=== PATIENT | female | born 1995 | race Caucasian/White ===

== ENCOUNTER 2021-02-18 00:59 | Emergency (ER) | payer BC, MEDICAID, SELFPAY ==
--- NOTE | ~2021-02-18 | CT_ITS ---
EXAMINATION: CT abdomen pelvis w con DATE: 02/18/2021 02:40 INDICATION: Left upper quadrant abdominal pain. Status post section. TECHNIQUE: Computed tomography (CT) of the abdomen and pelvis was performed with 100 cc Omnipaque 350 intravenous contrast. Automated exposure control and iterative reconstruction technique were employe d. Exam dose: 650.54 mGy-cm total exam DLP. COMPARISON: None. FINDINGS: Postsurgical changes secondary to recent section. uterus. No bowel obstruction or intraperitoneal free air is evident. Normal heart size. No pericardial or pleural effusion. The lung bases are clear. There is mild intrahepatic and extrahepatic bile duct dilatation and distention of the gallbladder. N o gallbladder wall thickening or pericholecystic fluid or fat stranding is noted. No obvious stones a re demonstrated in the gallbladder or common bile duct. Recommend correlation with serum bilirubin le brittanie. Consider gallbladder ultrasound examination. No pancreatic mass lesion, calcification or ductal dilatation. No space-occupying mass lesion of the liver, spleen, pancreas, adrenal glands or kidneys. No urinary tract calculus or hydroureteronephrosis. The urinary bladder is unremarkable. Normal caliber of the abdominal aorta. No intraperitoneal or retroperitoneal or pelvic mass lesion or adenopathy or ascites. Included skeletal structures are unremarkable. IMPRESSION: Gallbladder distention and mild prominence of the common bile duct and intrahepatic bile ducts. Status post recent section Reviewed, dictated and finalized at Location , in correlation with serum bilirubin. Consider gallblad delma ultrasound examination.. Reviewed, dictated and finalized at location A.
--- NOTE | 2021-02-18 01:07 | ECG_ITS ---
Measurements Intervals [place] Rate: 52 P: 26 [place]: 162 QRS: 14 QRSD: 94 T: 52 QT: 404 QTc: 377 Interpretive Statements SINUS BRADYCARDIA WITH SINUS ARRHYTHMIA BASELINE ARTIFACT- I, II, III, AVR, AVL, AVF, V2 NORMAL ECG Electronically Signed On 02-18-2021 6:26:12 CDT by Troy Otero D.O.
[2021-02-18 01:27] VITALS: BP 109/61; PULSE 47; RESP 18; TEMP 36.6; O2SAT 98
--- NOTE | 2021-02-18 01:27 | ED.ABDPAIN ---
HPI - Abdominal Pain General Chief Complaint: Abdominal Pain Stated Complaint: L side abd pain- 3 weeks Time Seen by Provider: 02/18/21 01:03 Source: patient History of Present Illness HPI narrative: Patient presents with left upper quadrant abdominal pain. Reports symptoms started tonight. She is status post . She had this kind of pain during her and was given pain medications but never figure out what occurred. Her pain is sharp, constant, associated with nausea and vomiting denies diarrhea, fevers, cough, congestion. Pain is sharp, constant, worse with deep inspiration, no radiation. She denies any urinary symptoms, she denies difficulty with bowel movements Review of Systems Review of Systems: CONSTITUTIONAL: Denies fever, chills, or sweats. EYES: Denies visual changes, redness, or discharge. ENT: Denies rhinorrhea, congestion, sore throat, or otalgia. CARDIOVASCULAR: Denies chest pain, palpitations, or edema. RESPIRATORY: Denies cough or dyspnea. GASTROINTESTINAL: Reports abdominal pain nausea and vomiting GENITOURINARY: Denies dysuria or hematuria. SKIN: Denies rash or itching. MUSCULOSKELETAL: Denies back pain, joint pain, or myalgia. NEUROLOGIC: Denies headache, numbness, dizziness, or weakness. PSYCHIATRIC: Denies anxiety or depression. All systems reviewed & are unremarkable except as noted in HPI and below PMFSH Surgical History Surgical History Previous section Social History Social History (Updated 02/18/21 @ 05:02 by Srinath Mckeon MD) Living arrangements: with family Exam Narrative: GENERAL: Well-appearing, well-nourished, and in mild distress due to pain HEAD: Normocephalic, atraumatic. EYES: PERRLA and EOMI. ENT: Nares clear, no rhinorrhea or epistaxis. Mucous membranes moist. NECK: Supple. No masses. No JVD ABDOMEN: Moderate tenderness most noted in the left upper quadrant soft, nondistended, normal active bowel sounds. EXTREMITIES: Normal range of motion. No edema. SKIN: Warm, dry, no rash. NEURO: No focal deficits. Alert and oriented x3. PSYCH: Normal mood and affect. Course Reevaluation(s) Reevaluation #1: Patient resting comfortably reports large improvement in symptoms labs and imaging reviewed with patient. Patient comfortable with outpatient plan. Discussed CT findings regarding her gallbladder she reports a history of symptomatic cholelithiasis but has not followed up with anyone she would like to continue to monitor her symptoms her repeat abdominal exam was much improved she had a negative Juárez's and no focal tenderness over the right quadrant Date: 02/18/21 Time: 05:00 Vital Signs Vital signs: Vital Signs Temperature 36.6 C 02/18/21 01:27 Pulse Rate 47 L 02/18/21 01:27 Respiratory Rate 18 02/18/21 01:27 Blood Pressure 109/61 02/18/21 01:27 Pulse Oximetry 98 02/18/21 01:27 Temperature 36.6 C 02/18/21 01:27 Pulse Rate 69 02/18/21 05:36 Respiratory Rate 18 02/18/21 05:36 Blood Pressure 106/63 02/18/21 05:36 Pulse Oximetry 99 02/18/21 05:36 MDM - Abdominal Pain MDM Narrative Medical decision making narrative: H&P as above, vss, pt looks clinically well, exam moderate abdominal pain, labs clinically unremarkable, patient refused to give a urine, img with mild dilation in the CBD otherwise CT of the abdomen was clinically unremarkable, additional labs/img considered, symptomatic relief available as needed, on reevaluation pt continues to looks clinically well. Symptoms remain of unclear etiology, dns pancreatitis, bowel obstruction, cholecystitis, appendicitis, perforation. plan to tx/monitor as op w/ pcm f/u findings/plan discussed with pt, pt agree/comfortable with plan, return precautions given Lab Data Result diagrams: 02/18/21 01:46 02/18/21 01:46 Labs: Lab Results 02/18/21 02/18/21 02/18/21 Range/Units 01:46 01:46
[2021-02-18 02:05] VITALS: BP 109/58; PULSE 66; RESP 18; O2SAT 99
[2021-02-18 02:05] LABS: Basophils Absolute Auto 0.1 K/mm3 (0.0-0.1); Basophils Percent Auto 0.6 % (0.2-1.2); Eosinophils Absolute Auto 0.3 K/mm3 (0-0.3); Eosinophils Percent Auto 2.9 % (0-4.4); Hematocrit 38.5 % (37.0-47.0); Hemoglobin 11.9 g/dL (12.0-15.0); Immature Granulocyte Absolute 0.03 K/mm3 (0.00-0.031); Immature Granulocyte Percent A 0.3 % (0-0.5); Lymphocytes Absolute Auto 3.71 K/mm3 (0.9-3.2); Lymphocytes Percent Auto 39.5 % (18.3-44.2); Mean Corpuscular HGB Conc 30.9 g/dl (32-36); Mean Corpuscular Hemoglobin 25.2 pg (26-34); Mean Corpuscular Volume 81.4 fl (80-100); Mean Platelet Volume 10.1 fl (7.4-10.4); Monocytes Absolute Auto 0.5 K/mm3 (0.1-0.6); Monocytes Percent Auto 5.5 % (2.6-8.5); Neutrophils Absolute Auto 4.8 K/mm3 (1.3-6.7); Neutrophils Percent Auto 51.2 % (45.5-73.1); Platelet Count Result 398 k/mm3 (150-375); Red Blood Count 4.73 M/mm3 (4.2-5.4); Red Cell Distribution Width 14.5 % (11.5-14.5); White Blood Count 9.4 K/mm3 (4.5-10.0)
[2021-02-18] MEDS: SODIUM CHLORIDE 0.9% IV 1,000 ML 999 ML IV CONT (02:06)
[2021-02-18] MEDS: MORPHINE SULFATE (*CRX) 4 MG/ML INJ IV PUSH (02:07)
[2021-02-18] MEDS: ONDANSETRON INJ 4 MG/2 ML VIAL IV PUSH (02:07)
[2021-02-18] MEDS: KETOROLAC 15 MG/ML VIAL (*BKC) IV PUSH (02:07)
[2021-02-18 02:09] LABS: Alanine Aminotransferase 22 U/L (4-35); Albumin Level 4.3 g/dL (3.5-5.1); Alkaline Phosphatase 105 U/L (38-126); Anion Gap 11 mmol/L (8-16); Aspartate Amino Transferase 23 U/L (14-36); Bilirubin,Total 0.3 mg/dL (0.2-1.3); Blood Urea Nitrogen 20 mg/dL (7-17); Calcium 9.7 mg/dL (8.4-10.2); Carbon Dioxide 26 mmol/L (22-30); Chloride 104 mmol/L (98-107); Estimated CRCL calculation 109 ml/min; Estimated Glomerular Filt Rate > 60; Glucose 108 mg/dL (65-110); Lipase 185 U/L (23-300); Potassium 4.2 mmol/L (3.4-5.0); Sodium 141 mmol/L (137-145)
[2021-02-18 02:10] LABS: Lactic Acid Reflex 0.9 mmol/L (0.7-2.1)
[2021-02-18 05:36] VITALS: BP 106/63; PULSE 69; RESP 18; O2SAT 99
== END 2021-02-18 05:46 | disposition home or self-care (01) ==
PROVIDERS: Emergency Provider Emergency Medicine
DX: R10.12 Left upper quadrant pain (principal); R11.2 Nausea with vomiting, unspecified; R00.1 Bradycardia, unspecified
CPT/HCPCS: 36415; 74177; 80053; 83605; 83690; 85025; 93005; 96361; 96374; 96375; 99284; J1885; J2270; J2405; J7030; Q9967

== ENCOUNTER 2021-03-13 04:49 | Observation (INO) | payer BC, MEDICAID, SELFPAY ==
[2021-03-13] VITALS (23 sets, daily range): BP systolic 88–141; BP diastolic 42–95; PULSE 40–101; RESP 14–20; TEMP 36.3–37.3; O2SAT 88–100; BMI 30.2
--- NOTE | ~2021-03-13 | US_ITS ---
EXAMINATION: US abdomen limited DATE: 03/13/2021 07:29 INDICATION: Abdominal pain TECHNIQUE: Multiple grayscale and Doppler ultrasound images of the abdomen were obtained. COMPARISON: CT, 02/18/2021 FINDINGS: Bowel gas obscures visualization of the pancreas. The visualized portions of the pancreas a re unremarkable. The liver is normal with normal echogenicity and echotexture. No surface nodularity. Normal hepatopetal flow in the main portal vein. Layering stones are present in the gallbladder whic h is mildly distended. No pericholecystic fluid or gallbladder wall thickening are identified. The no rmal common bile duct measures 6 mm. Sonographic Juárez sign is positive. IMPRESSION: 1. Cholelithiasis and gallbladder distention with positive sonographic Juárez sign. No gallbladder wa ll thickening or pericholecystic fluid. Findings are equivocal for cholecystitis. Consider correlatio n with nuclear hepatobiliary scan. Reviewed, dictated and finalized at location A. IMPRESSION: 1. Cholelithiasis and gallbladder distention with positive sonographic Juárez s ign. No gallbladder wall thickening or pericholecystic fluid. Findings are equi vocal for cholecystitis. Consider correlation with nuclear hepatobiliary scan.
--- NOTE | 2021-03-13 05:01 | ED.ABDPAIN ---
HPI - Abdominal Pain General Chief Complaint: Abdominal Pain <Nydia Mesa MD - Last Filed: 03/16/21 12:10> Stated Complaint: Left upper ABD pain <Nydia Mesa MD - Last Filed: 03/16/21 12:10> Time Seen by Provider: 03/13/21 04:53 <Nydia Mesa MD - Last Filed: 03/16/21 12:10> Source: patient, RN notes reviewed and old records reviewed <Nydia Mesa MD - Last Filed: 03/16/21 12:10> Mode of arrival: ambulatory <Nydia Mesa MD - Last Filed: 03/16/21 12:10> Limitations: no limitations <Nydia Mesa MD - Last Filed: 03/16/21 12:10> History of Present Illness HPI narrative: This is a 25 year old female who presents for evaluation of left side abdominal pain. She woke up with pain 2 hours ago, and she reports associated nausea and vomiting. She was evaluated for similar pain 3 weeks ago , and she reports she was diagnosed with gallstones. She reports her pain resolved after that visit and returned this morning. She has not taken anything for pain this morning. Her pain does not radiate and she denies fever, chills. <Nydia Mesa MD - Last Filed: 03/16/21 12:10> Related Data Home Medications: Home Medications Medication Instructions Recorded Confirmed ibuprofen 600 mg PO PRN 03/13/21 <Nydia Mesa MD - Last Filed: 03/16/21 12:10> Allergies/Adverse Reactions: Allergies Allergy/AdvReac Type Severity Reaction Status Date / Time baclofen AdvReac Chills Verified 03/13/21 12:48 meloxicam AdvReac Chills Verified 03/13/21 12:48 <Nydia Mesa MD - Last Filed: 03/16/21 12:10> Review of Systems Review of Systems: All systems reviewed & are unremarkable except as noted in HPI and below <Nydia Mesa MD - Last Filed: 03/16/21 12:10> Constitutional: Constitutional: Denies chills and Denies fever(s) <Nydia Mesa MD - Last Filed: 03/16/21 12:10> Respiratory: Respiratory: Denies dyspnea <Nydia Mesa MD - Last Filed: 03/16/21 12:10> Gastrointestinal: Gastrointestinal: Reports abdominal pain, Denies diarrhea, Reports nausea and Reports vomiting <Nydia Mesa MD - Last Filed: 03/16/21 12:10> Genitourinary: Genitourinary: Denies nocturia and Denies dysuria <Nydia Mesa MD - Last Filed: 03/16/21 12:10> Musculoskeletal: Musculoskeletal: Denies back pain <Nydia Mesa MD - Last Filed: 03/16/21 12:10> [facility] Past Medical History Medical History: Medical History (Updated 03/13/21 @ 12:37 by Cheikh Alegre MD) Obesity <Nydia Mesa MD - Last Filed: 03/16/21 12:10> Surgical History Surgical History: Surgical History Previous section <Nydia Mesa MD - Last Filed: 03/16/21 12:10> Family History Family History: Family History (Updated 03/13/21 @ 13:01 by Camron Dong DO) Mother Diabetes mellitus <Nydia Mesa MD - Last Filed: 03/16/21 12:10> Social History Social History: Social History (Updated 03/13/21 @ 13:01 by Camron Dong DO) Smoking status: Never smoker Second hand tobacco smoke exposure: No Alcohol intake: never Substance use: never Spiritual care concerns: No <Nydia Mesa MD - Last Filed: 03/16/21 12:10> Exam Const: General: alert; No diaphoretic <Nydia Mesa MD - Last Filed: 03/16/21 12:10> Orientation/consciousness: patient oriented x3 <Nydia Mesa MD - Last Filed: 03/16/21 12:10> Other: patient is screaming in pain <Nydia Mesa MD - Last Filed: 03/16/21 12:10> Eyes: EOM: EOMs intact bilaterally <Nydia Mesa MD - Last Filed: 03/16/21 12:10> Chest: Chest palpation & inspection: normal inspection of the chest and abnormal inspection of the chest <Nydia Mesa MD - Last Filed: 03/16/21 12:10> Resp: Effort & Inspection: normal respiratory effort and no retractions <Nydia Cabral
[2021-03-13 05:17] LABS: Basophils Absolute Auto 0.1 K/mm3 (0.0-0.1); Basophils Percent Auto 0.9 % (0.2-1.2); Eosinophils Absolute Auto 0.1 K/mm3 (0-0.3); Eosinophils Percent Auto 1.8 % (0-4.4); Hematocrit 38.8 % (37.0-47.0); Hemoglobin 11.9 g/dL (12.0-15.0); Immature Granulocyte Absolute 0.01 K/mm3 (0.00-0.031); Immature Granulocyte Percent A 0.1 % (0-0.5); Lymphocytes Absolute Auto 3.41 K/mm3 (0.9-3.2); Mean Corpuscular HGB Conc 30.7 g/dl (32-36); Mean Corpuscular Hemoglobin 24.8 pg (26-34); Mean Corpuscular Volume 80.8 fl (80-100); Mean Platelet Volume 9.3 fl (7.4-10.4); Monocytes Absolute Auto 0.5 K/mm3 (0.1-0.6); Neutrophils Absolute Auto 3.6 K/mm3 (1.3-6.7); Neutrophils Percent Auto 46.2 % (45.5-73.1); Platelet Count Result 344 k/mm3 (150-375); Red Cell Distribution Width 14.6 % (11.5-14.5); White Blood Count 7.8 K/mm3 (4.5-10.0)
[2021-03-13] MEDS: ONDANSETRON INJ 4 MG/2 ML VIAL IV PUSH ×4 (05:18→16:36)
[2021-03-13] MEDS: MORPHINE SULFATE (*CRX) 4 MG/ML INJ IV PUSH ×3 (05:18→16:34)
[2021-03-13] MEDS: LACTATED RINGERS 1,000 ML 999 ML IV CONT (05:21)
[2021-03-13 05:33] LABS: Alanine Aminotransferase 28 U/L (4-35); Albumin Level 4.2 g/dL (3.5-5.1); Alkaline Phosphatase 96 U/L (38-126); Anion Gap 9 mmol/L (8-16); Aspartate Amino Transferase 35 U/L (14-36); Bilirubin,Total 0.3 mg/dL (0.2-1.3); Blood Urea Nitrogen 16 mg/dL (7-17); Calcium 9.6 mg/dL (8.4-10.2); Carbon Dioxide 25 mmol/L (22-30); Chloride 106 mmol/L (98-107); Estimated CRCL calculation 105 ml/min; Estimated Glomerular Filt Rate > 60; Glucose 140 mg/dL (65-110); Lipase 182 U/L (23-300); Potassium 3.8 mmol/L (3.4-5.0); Sodium 140 mmol/L (137-145)
[2021-03-13 06:19] LABS: Add Urine Microscopic? YES; Appearance Urine Cloudy (Clear); Bilirubin Urine Negative (Negative); Blood Urine Negative (Negative); Color Urine Yellow (Yellow); Glucose Urine UA Negative (Negative); Ketones Urine Negative (Negative); Leukocyte Esterase Ur Negative LEU/UL (Negative); Mucus Urine Few /lpf; Nitrate Urine Negative (Negative); Protein Urine 1+ mg/dL (Negative); Specific Grav Ur 1.024 (1.001-1.035); Squamous Epithelial Cell Urine Occasional /hpf (Few); Urobilinogen Urine Negative mg/dL (<2.0); WBC Urine 0-3 /hpf
[2021-03-13] MEDS: HYDROmorphone HCL INJ (*CRX) 1 MG/ML SYR IV PUSH ×3 (06:35→10:17)
[2021-03-13] MEDS: SODIUM CHLORIDE 0.9% IV 1,000 ML 125 ML IV CONT (10:16)
--- NOTE | 2021-03-13 12:18 | PM.IMHP ---
H&P: HPI History of Present Illness Date/Time: 03/13/21 12:18 Chief Complaint: Right upper quadrant pain Narrative: This is a 25-year-old presented to emergency department this morning upper abdominal pain. She states that her pain started around 3:00 a.m. this morning. She had eaten biscuits and gravy last night. She had episode like this about 3 weeks ago but pain resolved and she was able to go home. She also had an episode like this about 4 years ago while with her 1st son and this also went away with time. She has been having constant pain since that started this morning and pain was unable to be controlled in the ED. she has been having nausea and vomiting, but denies any fevers, change of bowel habits, or urinary difficulty. Review of Systems Review of Systems: All systems reviewed & are unremarkable except as noted in HPI and below Constitutional: Constitutional: Denies chills and Denies fever(s) Eyes: Eyes: Denies change in vision ENT: Denies hearing loss, Denies neck pain and Denies sore throat Cardiovascular: Cardiovascular: Denies chest pain and Denies dyspnea Respiratory: Respiratory: Denies cough, Denies dyspnea and Denies wheezing Gastrointestinal: Gastrointestinal: Reports as per HPI Genitourinary: Genitourinary: Denies hematuria and Denies dysuria Musculoskeletal: Musculoskeletal: Denies arthralgias, Denies joint swelling and Denies neck pain Allergic/Immunologic: Allergic/Immunologic: Denies wheezing [facility] Past Medical History Medical History (Updated 03/13/21 @ 12:37 by Cheikh Alegre MD) Obesity Surgical History Surgical History Previous section Family History Family History (Updated 03/13/21 @ 13:01 by Camron Dong DO) Mother Diabetes mellitus Social History Social History (Updated 03/13/21 @ 13:01 by Camron Dong DO) Smoking status: Never smoker Alcohol intake: never Meds Home Medications and Allergies Home Medications Medication Instructions Recorded Confirmed Type ibuprofen 600 mg PO PRN 03/13/21 History Allergies Allergy/AdvReac Type Severity Reaction Status Date / Time baclofen AdvReac Chills Verified 03/13/21 12:48 meloxicam AdvReac Chills Verified 03/13/21 12:48 Vital Signs Vital Signs - 24 hr 03/13/21 05:02 03/13/21 06:01 03/13/21 06:15 Temperature 36.7 C Pulse Rate 77 Respiratory Rate 16 Blood Pressure 106/76 Pulse Oximetry 100 100 100 03/13/21 06:30 03/13/21 06:45 03/13/21 06:51 Temperature Pulse Rate Respiratory Rate Blood Pressure 111/75 Pulse Oximetry 100 88 L 96 03/13/21 07:00 03/13/21 07:01 03/13/21 09:07 Temperature Pulse Rate 45 L Respiratory Rate 16 Blood Pressure 109/75 141/75 H Pulse Oximetry 97 99 96 03/13/21 10:06 03/13/21 11:46 Temperature 37.0 C Pulse Rate 40 L 50 L Respiratory Rate 14 14 Blood Pressure 135/95 H 129/84 Pulse Oximetry 94 100 Exam Const: General: alert; No acute distress Orientation/consciousness: patient oriented x3 Limitations: no limitations HENMT: Head: normocephalic and atraumatic Ears: hearing grossly normal bilaterally General nose exam: Normal external nose present and Normal nares present Mouth: Yes Normal oral and palatal mucosa present and Yes moist mucous membranes Eyes: General: appearance normal, both eyes and all related structures Conjunctivae: conjunctivae normal Sclera: sclerae normal Pupils: Equal, round and reactive pupils present EOM: EOMs intact bilaterally Neck: Neck: normal visual inspection, full ROM, no lymphadenopathy, supple and no JVD Lymphatic: no lymphadenopathy noted Chest: Chest palpation & inspection: normal inspection of the chest Resp: Effort & Inspection: normal respiratory effort and able to speak in complete sentences Auscultation: clear to auscultation bilaterally Percussion: percussion normal Cardio: Jugular
--- NOTE | 2021-03-13 12:23 | WPDHPUPDATE1 ---
History and Physical Update Update Date/Time: 03/13/21 12:23 History and Physical has been reviewed, including an updated exam of the patient. There are NO changes in the patient's condition. Risks, benefits, and alternatives have been discussed and questions answered. Patient agrees to proceed with procedure.
[2021-03-13] MEDS: LACTATED RINGERS 1,000 ML 30 ML IV CONT ×2 (12:30→14:19)
--- NOTE | 2021-03-13 12:37 | WPDANESEPPF ---
Anes - Initial Pre Proc Eval Procedure: Operation Date: 03/13/21 13:30 Proposed Procedures p Laparoscopic Cholecystectomy Possible Open - Camron Dong DO Date/Time: 03/13/21 12:37 Surgeon: Camron Dong DO Pre Op Diagnosis: symptomatic cholethithiasis Patient Data Age: 25 Gender: F Height: 1.68 m Weight: 85.1 kg Last Vital Signs Temp 37.0 C 03/13/21 11:46 Pulse 50 L 03/13/21 11:46 Resp 14 03/13/21 11:46 BP 129/84 03/13/21 11:46 Pulse Ox 100 03/13/21 11:46 Allergies Allergy/AdvReac Type Severity Reaction Status Date / Time baclofen AdvReac Chills Verified 03/13/21 05:06 meloxicam AdvReac Chills Verified 03/13/21 05:06 Laboratory Tests 03/13/21 03/13/21 03/13/21 05:08 05:08 06:00 WBC 7.8 K/mm3 K/mm3 (4.5-10.0) RBC 4.80 M/mm3 M/mm3 (4.2-5.4) Hgb 11.9 g/dL L g/dL (12.0-15.0) Hct 38.8 % % (37.0-47.0) MCV 80.8 fl fl (80-100) MCH 24.8 pg L pg (26-34) MCHC 30.7 g/dl L g/dl (32-36) RDW 14.6 % H % (11.5-14.5) Plt Count 344 k/mm3 k/mm3 (150-375) MPV 9.3 fl fl (7.4-10.4) Immature Gran % (Auto) 0.1 % % (0-0.5) Neut % (Auto) 46.2 % % (45.5-73.1) Lymph % (Auto) 44.0 % % (18.3-44.2) [place] % (Auto) 7.0 % % (2.6-8.5) Eos % (Auto) 1.8 % % (0-4.4) Baso % (Auto) 0.9 % % (0.2-1.2) Lymph # (Auto) 3.41 K/mm3 H K/mm3 (0.9-3.2) [place] # (Auto) 0.5 K/mm3 K/mm3 (0.1-0.6) Eos # (Auto) 0.1 K/mm3 K/mm3 (0-0.3) Baso # (Auto) 0.1 K/mm3 K/mm3 (0.0-0.1) Abs Immat Gran (auto) 0.01 K/mm3 K/mm3 (0.00-0.031) Absolute Neuts (auto) 3.6 K/mm3 K/mm3 (1.3-6.7) Absolute Nucleated RBC 0.0 K/mm3 K/mm3 (0.0-0.012) Nucleated RBC % 0.0 % % (0.0-0.2) Sodium 140 mmol/L mmol/L (137-145) Potassium 3.8 mmol/L mmol/L (3.4-5.0) Chloride 106 mmol/L mmol/L (98-107) Carbon Dioxide 25 mmol/L mmol/L (22-30) Anion Gap 9 mmol/L mmol/L (8-16) BUN 16 mg/dL mg/dL (7-17) Creatinine 0.80 mg/dL mg/dL (0.7-1.0) Estim Creat Clear Calc 105 ml/min ml/min Estimated GFR > 60 (59 - ) Glucose 140 mg/dL H mg/dL (65-110) Calcium 9.6 mg/dL mg/dL (8.4-10.2) Total Bilirubin 0.3 mg/dL mg/dL (0.2-1.3) AST 35 U/L U/L (14-36) ALT 28 U/L U/L (4-35) Alkaline Phosphatase 96 U/L U/L (38-126) Total Protein 7.0 g/dL g/dL (6.3-8.2) Albumin 4.2 g/dL g/dL (3.5-5.1) Lipase 182 U/L U/L (23-300) Urine Color Yellow (Yellow) Urine Appearance Cloudy H (Clear) Urine pH 6.0 (5.0-9.0) Ur Specific [place] 1.024 (1.001-1.035) Urine Protein 1+ mg/dL H mg/dL (Negative) Urine Glucose (UA) Negative mg/dL mg/dL (Negative) Urine Ketones Negative mg/dL mg/dL (Negative) Ur Blood (Man) Negative (Negative) Urine Nitrate Negative (Negative) Urine Bilirubin Negative (Negative) Urine Urobilinogen Negative mg/dL mg/dL (<2.0) Leukocyte Esterase Rfl Negative KELLY/UL KELLY/UL (Negative) Urine RBC 3-5 /hpf H /hpf (0-2) Urine WBC 0-3 /hpf /hpf Ur Squamous Epith Cells Occasional /hpf /hpf (Few) Urine Mucus Few /lpf H /lpf Patient hx anesthesia problems: none Family hx anesthesia problems: none Results Review: All pre-operative results and documents have been reviewed as part of the pre-operative evaluation. COUNTS INCLUDE 234 BEDS AT THE [facility] Past Medical History Medical History (Updated 03/13/21 @ 12:37 by Cheikh Alegre MD) Obesity Surgical History Surgical History Previous cesa
[2021-03-13] MEDS: ceFAZolin 2 GM/D5W 50 ML 2 GM/50 ML BAG IVPB (13:25)
--- NOTE | 2021-03-13 14:26 | W.PM.PROC2 ---
Procedure Note - Detailed Date of Procedure 03/13/21 Pre-op Diagnosis Acute calculous cholecystitis Post-op Diagnosis same Procedure Performed Laparoscopic cholecystectomy Surgeon Camron Dong, DO Anesthesia general and local (0.5% bupivacaine) Indications This is a 25-year-old woman who presented to the emergency department this morning with acute onset of upper abdominal pain that started around 3:00 a.m. this morning. She had eaten biscuits and gravy for dinner last night. She has had a couple prior episodes like this in the past. She was having nausea and vomiting but denied any fevers or chills. Workup in the emergency department showed normal white blood count and normal liver enzymes, but ultrasound showed evidence of a distended gallbladder with gallstones and positive sonographic Juárez sign. She was continuing to have constant pain in the emergency department despite multiple doses of pain meds. Discussions were made with the patient about treatment options and decision was made to admit patient and proceed with urgent laparoscopic cholecystectomy, possible open. Findings Laparoscopic cholecystectomy was performed. The gallbladder appeared tense and dilated and had some mild gallbladder wall thickening. The gallbladder had to be aspirated with a laparoscopic aspirating needle to allow it to be decompressed enough to grasp and manipulate. The cystic duct appeared normal in size. No other intra-abdominal abnormalities were noted. The gallbladder was removed and sent to the lab for pathology. Description of Procedure Procedure as well as risks, benefits, and alternatives were discussed with patient. Written consent was obtained and placed in chart prior to procedure. The patient was brought back to surgical suite. Patient was placed in supine position on operating table. Time-out was done to confirm patient and procedure. Patient was then intubated by the anesthesia department. Abdomen was prepped and draped in sterile fashion using chlorhexidine prep. 0.5% bupivacaine with epinephrine was infiltrated at each site of incision. An 11 millimeter vertical incision was made at the inferior portion of the umbilicus using a 15 blade scalpel. Blunt dissection was carried down to the linea alba. The linea alba was then incised using a 15 blade scalpel. The peritoneum was then bluntly entered. An 11 millimeter trocar was inserted and carbon dioxide insufflation was used to create a pneumoperitoneum. The camera was inserted and the abdomen was inspected. The patient was placed in reverse Trendelenberg position and rotated slightly to the left. A 5 millimeter incision was made in the epigastric region, and a 5 millimeter trocar was inserted under direct visualization. Two 5 millimeter incisions were made in the right upper quadrant, and two 5 millimeter trocars were inserted under direct visualization. The gallbladder was identified and grasped at the fundus and retracted superiorly. It was then grasped at the infundibulum retracted laterally. Careful dissection around the neck of the gallbladder was performed using blunt dissection with a [place] grasper and hook electrocautery. The cystic duct was identified, and a window was created behind it. The cystic artery was also identified and a window was created behind it. The critical view of safety was identified, visualizing the cystic duct running directly into the neck of the gallbladder, and the cystic artery running directly into the wall of the gallbladder. A 5 millimeter clip prn physical therapist was then used to place 2 clips proximally and 1 clip distally on both the cystic duct and cystic artery. They were then both transected using endoscopic scissors. Once safely away from the kinjal hepatitis, the gallbladder was dissected free from the liver bed using hook electrocautery. Hemostasis was achieved along the way. The gallbladder was removed completely and then removed through the umbilical port.
[2021-03-13] MEDS: fentaNYL CITRATE INJ (*CRX) 100 MCG/2 ML VIAL 25 MCG IV PUSH (14:55)
[2021-03-13] MEDS: LACTATED RINGERS 1,000 ML 100 ML IV CONT (15:33)
--- NOTE | 2021-03-13 15:38 | PC.NURSE ---
This patient, Cody Flaherty, was admitted to [facility] Surg Room 314-01 at 1539 following lap cholecystomy this afternoon. Patient/family oriented to hospital policies and general routines including ID bracelet, bed and alarms, visiting hours, pain management, procedures, bathroom and other care routines, personal items, smoking policy, room service/diet, and visiting hours. Information on how to activate the Rapid Response Team has been discussed. Patient/Family are encouraged to report perceived risks to care and to ask questions if they do not understand what they are told or what they should do.
--- NOTE | 2021-03-13 16:56 | PC.NURSE ---
MD Dong informed pt anxiety about pain and requesting to stay the night at hospital. Md Dong, aboved over night stay.
[2021-03-14] VITALS: BP 100/45; PULSE 42; RESP 16; TEMP 36.7; O2SAT 97
[2021-03-14 04:00] VITALS: BP 88/45; PULSE 45; RESP 16; TEMP 36.9; O2SAT 97
[2021-03-14 06:37] LABS: Hematocrit 36.4 % (37.0-47.0); Hemoglobin 11.3 g/dL (12.0-15.0); Mean Corpuscular Hemoglobin 25.2 pg (26-34); Mean Corpuscular Volume 81.1 fl (80-100); Mean Platelet Volume 9.5 fl (7.4-10.4); Platelet Count Result 331 k/mm3 (150-375); Red Blood Count 4.49 M/mm3 (4.2-5.4); Red Cell Distribution Width 14.8 % (11.5-14.5); White Blood Count 10.9 K/mm3 (4.5-10.0)
[2021-03-14 07:09] LABS: Alanine Aminotransferase 75 U/L (4-35); Albumin Level 3.2 g/dL (3.5-5.1); Alkaline Phosphatase 86 U/L (38-126); Aspartate Amino Transferase 43 U/L (14-36); Bilirubin,Total 0.4 mg/dL (0.2-1.3); Lipase 104 U/L (23-300)
[2021-03-14 07:54] VITALS: BP 100/52; PULSE 55; RESP 16; TEMP 36.7; O2SAT 99
--- NOTE | 2021-03-14 11:51 | PM.DS ---
DS: Admitting Diagnosis Discharge Date 03/14/2021 Admitting Diagnosis Acute calculous cholecystitis DS: Discharge Diagnosis Discharge Diagnosis (1) Acute calculous cholecystitis: Code(s): K80.00 - Calculus of gallbladder with acute cholecystitis without obstruction Status: Acute DS: Summary Hospital Course Reason for hospitalization: Acute calculous cholecystitis Hospital Course: This is a 25-year-old woman who presented to the emergency department 03/13/2021 with upper abdominal pain, nausea, and vomiting. This is her 2nd visit to the emergency department in the last 3 weeks. She had a similar episode 3 weeks ago but symptoms improved and she was able to be discharged home. This time her pain was constant and was not relieved with pain meds in the emergency department. Her gallbladder ultrasound showed evidence of cholelithiasis with a distended gallbladder and positive sonographic Juárez sign. Decision was made to admit the patient for further treatment. She underwent laparoscopic cholecystectomy on 03/13/2021. Surgery was uncomplicated and she was returned to the surgical floor postoperatively. Her diet and activity were gradually advanced as tolerated. She was having persistent postoperative pain in the evening on 03/13/2021, therefore she was kept in the hospital overnight. The following morning her pain was much better controlled and she was tolerating a low-fat diet. She was up ambulating without much difficulty. She was then discharged on 03/14/2021. Status at Discharge Functional status at discharge: independent ambulation Overall status at discharge: patient is progressing back to baseline Time Spent with Patient Time attestation: Total time spent providing and/or coordinating discharge services: Time spent: Less than 30 minutes Exam Const: General: comfortable and no acute distress Orientation/consciousness: patient oriented x3 Resp: Effort & Inspection: normal respiratory effort Auscultation: clear to auscultation bilaterally Cardio: Rate: regular rate Rhythm: regular rhythm Heart sounds: S1 normal heart sound present and S2 normal heart sound present GI: Inspection: non-distended and incision (Intact with glue) GI Palp: Yes Soft to palpation, Yes Tenderness to palpation present (GI) (Incisional), No Guarding due to palpation present (GI) and No Rebound tenderness present Auscultation: normal bowel sounds DS: Data Data Completed and Pending Pending studies at discharge: Pending at discharge 03/13/21 13:52 Surgical [PTH] Routine Labs on day of discharge: Labs from last 24 hours 03/14/21 03/14/21 06:24 06:24 WBC 10.9 H RBC 4.49 Hgb 11.3 L Hct 36.4 L MCV 81.1 MCH 25.2 L MCHC 31.0 L RDW 14.8 H Plt Count 331 MPV 9.5 Total Bilirubin 0.4 Direct Bilirubin 0.0 AST 43 H ALT 75 H Alkaline Phosphatase 86 Total Protein 6.0 L Albumin 3.2 L Lipase 104 Discharge Plan Discharge Attending physician on discharge: Camron Regalado Discharging Clinician: Camron Regalado Patient Disposition: Home, Self-Care Activity: other - see discharge instructions Diet: low fat Wound Care Instructions: follow printed instructions Discharge Instructions: DISCHARGE INSTRUCTION SHEET FOR HERNIA, GALLBLADDER AND APPENDIX SURGERIES DR. REGALADO PATIENT TO TAKE HOME 1. May shower, no soaking in bath x 2weeks. 2. Call office for: Wound increasingly painful or bleeding Vomiting Fever of greater than 101 degrees 3. If no bowel movement for three days, take 1 oz. (30 ml) Milk of Magnesia or MiraLax 17g 1 to 2 times daily. 4. No heavy lifting > 10-15 pounds x weeks for hernia repairs and 2 weeks for laparoscopic cholecystectomy or appendectomy. 5. No driving for 3 days or while taking narcotic pain medications. 6. Ice to surgical site for 48 hours (30 min on, then 30 min off).
[2021-03-14] MEDS: ACETAMINOPHEN 325 MG TABLET 650 MG PO (12:41)
== END 2021-03-14 13:20 | disposition home or self-care (01) ==
LOC: ANHED 10:38 → ANH3MEDSUR 11:14
PROVIDERS: General Practice; Admitting Provider Surgery; Emergency Provider Emergency Medicine; PCP Family Medicine; Visit Provider Surgery
PROC: 0FT44ZZ Resection of Gallbladder, Percutaneous Endoscopic Approach (ICD-10-PCS; CPT 47562; principal; 2021-03-13 13:30)
DX: K80.10 Calculus of gallbladder with chronic cholecystitis without obstruction (principal)
CPT/HCPCS: 47562; 36415; 76705; 80053; 80076; 81001; 81025; 83690; 85025; 85027; 88304; 96361; 96374; 96375; 96376; 99285; A9270; G0378; J0131; J0330; J0690; J1100; J1170; J2270; J2405; J2704; J2710; J3010; J7030; J7120

== ENCOUNTER 2021-09-29 16:57 | Inpatient (IN) | payer BC, MEDICAID, SELFPAY ==
--- NOTE | ~2021-09-29 | CT_ITS ---
EXAMINATION: CT abdomen pelvis wo con DATE: 10/01/2021 11:58 INDICATION: Fever and flank pain TECHNIQUE: Computed tomography (CT) of the abdomen and pelvis was performed without intravenous contr ast. The dose-length product (DLP) was 759.88 mGy-cm. Automated exposure control and iterative recons truction technique were employed. COMPARISON: 09/29/2021 FINDINGS: Minimal dependent atelectasis is present in the lung bases. The heart size is normal. Withi n the limitations of noncontrast examination, the liver, spleen, pancreas, and adrenal glands are nor mal. The gallbladder is surgically absent. There is slight increase in right perinephric and right re troperitoneal fat stranding. There is also right periureteral stranding proximally. The left kidney i s unremarkable. No pathologically enlarged abdominal or pelvic lymph nodes are identified. There is n o free intraperitoneal gas or evidence of bowel obstruction. An IUD is in expected position. There is a small umbilical hernia containing fat. IMPRESSION: 1. Findings consistent with right pyelonephritis with slight worsening. Reviewed, dictated and finalized at location A.
--- NOTE | ~2021-09-29 | XR_ITS ---
EXAMINATION: XR chest 1V portable Exam Date/Time: 09/29/2021 21:25 CDT CLINICAL HISTORY: Fever, headache, rt sided flank pain, n/v, cough x few days Comparison: None available. RESULT: Lines, tubes, and devices: None. Lungs and pleura: Clear. Cardiomediastinal silhouette: Normal cardiomediastinal silhouette. Other: No acute osseous or upper abdominal finding. IMPRESSION: No acute cardiopulmonary process Reviewed, dictated and finalized at location K.
--- NOTE | ~2021-09-29 | CT_ITS ---
EXAMINATION: CT abdomen pelvis w con DATE: 09/29/2021 20:58 INDICATION: Right abdominal pain TECHNIQUE: Computed tomography (CT) of the abdomen and pelvis was performed with 100 mL Omnipaque-300 intravenous contrast. Automated exposure control and iterative reconstruction technique were employe d. The dose-length product was 652.39 mGy-cm. COMPARISON: 02/18/2021. FINDINGS: Lower thorax: Unremarkable Liver: Normal. Biliary/Gallbladder: Gallbladder is absent. No bile duct dilation. Pancreas: No mass or duct dilation. Spleen: Normal. Adrenals:No mass. Kidneys: Patchy bilateral parenchymal enhancement, more evident on the right. No mass or hydronephros is. Subtle medullary hyperdensity may reflect nephrocalcinosis or altered parenchymal enhancement. GI tract: No small or large bowel dilation. Normal appendix. Mesentery/Peritoneum: No ascites, mass, or free air. Retroperitoneum: No mass. Pelvis: Mild bladder wall thickening, given the degree of distention. IUD, in good position. Small vo lume free pelvic fluid within physiologic range. Soft Tissues: Soft tissues and body wall unremarkable. Bones: No acute osseous finding. IMPRESSION: CT findings concerning for cystitis, with bilateral ascending infection, more severe on the right. Reviewed, dictated and finalized at location K. IMPRESSION: CT findings concerning for cystitis, with bilateral ascending infection, more s evere on the right.
[2021-09-29 17:33] VITALS: BP 113/66; PULSE 110; RESP 20; TEMP 38.3; O2SAT 100
[2021-09-29 17:45] LABS: Basophils Absolute Auto 0.1 K/mm3 (0.0-0.1); Basophils Percent Auto 0.6 % (0.2-1.2); Eosinophils Percent Auto 0.1 % (0-4.4); Hematocrit 38.3 % (37.0-47.0); Immature Granulocyte Absolute 0.02 K/mm3 (0.00-0.031); Immature Granulocyte Percent A 0.2 % (0-0.5); Lymphocytes Absolute Auto 0.95 K/mm3 (0.9-3.2); Lymphocytes Percent Auto 11.5 % (18.3-44.2); Mean Corpuscular HGB Conc 31.3 g/dl (32-36); Mean Corpuscular Hemoglobin 24.9 pg (26-34); Mean Corpuscular Volume 79.5 fl (80-100); Mean Platelet Volume 9.4 fl (7.4-10.4); Monocytes Absolute Auto 0.7 K/mm3 (0.1-0.6); Monocytes Percent Auto 8.1 % (2.6-8.5); Neutrophils Absolute Auto 6.5 K/mm3 (1.3-6.7); Neutrophils Percent Auto 79.5 % (45.5-73.1); Platelet Count Result 283 k/mm3 (150-375); Red Blood Count 4.82 M/mm3 (4.2-5.4); Red Cell Distribution Width 14.5 % (11.5-14.5); White Blood Count 8.2 K/mm3 (4.5-10.0)
--- NOTE | 2021-09-29 17:52 | ED.ABDPAIN ---
HPI - Abdominal Pain General Chief Complaint: Abdominal Pain Stated Complaint: light headed, right side pain Time Seen by Provider: 09/29/21 17:47 Source: patient Mode of arrival: ambulatory Limitations: no limitations History of Present Illness HPI narrative: Patient is 26 years old white female presented to the ED with fever, chills, hot and cold feeling, body aches mainly on the right flank area, nausea and vomiting, cough. Started few days ago. Got worse today. Patient denies sick contact. Related Data Home Medications Medication Instructions Recorded Confirmed ibuprofen 600 mg PO PRN 03/13/21 03/30/21 Allergies Allergy/AdvReac Type Severity Reaction Status Date / Time baclofen AdvReac Chills Verified 03/27/21 10:51 meloxicam AdvReac Chills Verified 03/27/21 10:51 Review of Systems Review of Systems: All systems reviewed & are unremarkable except as noted in HPI and below PMFSH Past Medical History Medical History Obesity Surgical History Surgical History History of cholecystectomy 03/13/21 Previous section Family History Family History Mother Diabetes mellitus Social History Social History Smoking status: Never smoker Second hand tobacco smoke exposure: No Alcohol intake: never Substance use: never Spiritual care concerns: No Exam Narrative: General appearance: Well-developed, well-nourished Skin: Normal color Head: Normocephalic, nontraumatic Eyes: Clear conjunctiva ENT: Oropharynx normal, ears normal, nose normal Neck: Supple, nontender Chest and respiratory: Airway patent, no respiratory distress, no accessory muscle use Heart: Regular rate/rhythm Abdomen: Soft, mild tenderness right abdomen and right flank area Vascular: Normal peripheral pulses, normal capillary refill. Musculoskeletal: Normal range of motion, nontender back Neurologic: Alert and oriented ?3, CLINICAL OPERATIONS CONSULTANT is normal as tested, no gross motor deficit Course Reevaluation(s) Reevaluation #1: After lengthy explanation about the possible complication of leaving AMA which include sepsis, kidney failure, and . Patient still insist to go home because she have 2 children at home to take care of. And does not have anybody else to the care gets. The ED chief nurse, Harmony, went to talk to her also without any change.. Patient received 1 L of fluid IV, Tylenol orally, 1 g Rocephin IV prior to discharge on Cipro. Date: 09/29/21 Time: 21:59 Vital Signs Vital signs: Vital Signs Temperature 38.3 C H 09/29/21 17:33 Pulse Rate 110 H 09/29/21 17:33 Respiratory Rate 20 09/29/21 17:33 Blood Pressure 113/66 09/29/21 17:33 Pulse Oximetry 100 09/29/21 17:33 Temperature 38.3 C H 09/29/21 17:33 Pulse Rate 110 H 09/29/21 17:33 Respiratory Rate 20 09/29/21 17:33 Blood Pressure 113/66 09/29/21 17:33 Pulse Oximetry 100 09/29/21 17:33 MDM - Abdominal Pain Lab Data Result diagrams: 09/29/21 17:36 09/29/21 17:36 Labs: Lab Results 09/29/21 09/29/21 09/29/21 Range/Units 17:36 17:36 18:08 WBC 8.2 (4.5-10.0) K/mm3 RBC 4.82 (4.2-5.4) M/mm3 Hgb 12.0 (12.0-15.0) g/dL Hct 38.3 (37.0-47.0) % MCV 79.5 L (80-100) fl MCH 24.9 L (26-34) pg MCHC 31.3 L (32-36) g/dl RDW 14.5 (11.5-14.5) % Plt Count 283 (150-375) k/mm3 MPV 9.4 (7.4-10.4) fl Immature Gran % (Auto) 0.2 (0-0.5) % Neut % (Auto) 79.5 H (45.5-73.1) % Lymph
[2021-09-29 17:54] LABS: Alanine Aminotransferase 15 U/L (6-35); Albumin Level 3.9 g/dL (3.5-5.1); Alkaline Phosphatase 72 U/L (38-126); Anion Gap 10 mmol/L (8-16); Aspartate Amino Transferase 21 U/L (14-36); Bilirubin,Total 0.2 mg/dL (0.2-1.3); Blood Urea Nitrogen 7 mg/dL (7-17); Carbon Dioxide 22 mmol/L (22-30); Chloride 102 mmol/L (98-107); Estimated CRCL calculation 96 ml/min; Estimated Glomerular Filt Rate > 60; Glucose 137 mg/dL (65-110); Lipase 63 U/L (23-300); Potassium 3.6 mmol/L (3.4-5.0); Sodium 134 mmol/L (137-145)
[2021-09-29 18:25] LABS: Appearance Urine Clear (Clear); Bilirubin Urine Negative (Negative); Blood Urine 3+ (Negative); Color Urine Yellow (Yellow); Glucose Urine UA Negative (Negative); Ketones Urine Negative (Negative); Leukocyte Esterase Ur 1+ LEU/UL (Negative); Nitrate Urine Positive (Negative); Protein Urine Negative (Negative); Urobilinogen Urine 0.2 mg/dL (<2.0); pH Urine 5.5 (5.0-9.0)
[2021-09-29 18:42] LABS: Mucus Urine Rare /lpf; RBC Urine >75 /hpf (0-2); Squamous Epithelial Cell Urine Occasional /hpf (Few); WBC Urine 21-30 /hpf
[2021-09-29 18:47] LABS: Add Urine Microscopic? YES
[2021-09-29] MEDS: SODIUM CHLORIDE 0.9% IV 1,000 ML 999 ML IV CONT (21:32)
[2021-09-29] MEDS: ACETAMINOPHEN 500 MG TABLET 1000 MG PO (21:33)
--- NOTE | 2021-09-29 21:53 | PC.NURSE ---
This rn at pt bedside to discuss potential pt signing out ama per erp request. Pt verbalized that she understands what the doctor is explaining to her, that is a possibility and that she is unable to get anyone to take care of her children. She is still needing to sign out ama. ERP dr. Bryan updated that patient is still wanting to sign ama paperwork.
[2021-09-30 00:35] LABS: Influenza A QL RT-PCR Negative (Negative); Influenza B QL RT-PCR Negative (Negative); SARS-CoV-2 RNA PCR Negative
[2021-09-30 01:28] VITALS: BP 113/66; PULSE 110; RESP 20; O2SAT 100
[2021-09-30 02:00] VITALS: BMI 23.8
[2021-09-30 02:06] VITALS: BP 119/58; PULSE 80; RESP 16; TEMP 37.1; O2SAT 100
--- NOTE | 2021-09-30 02:10 | ADMGEN ---
0135 This patient, Dary Flaherty, was admitted to 3 [facility] Surg Room 330-01. Patient/family oriented to hospital policies and general routines including ID bracelet, bed and alarms, visiting hours, pain management, procedures, bathroom and other care routines, personal items, smoking policy, room service/diet, and visiting hours. Information on how to activate the Rapid Response Team has been discussed. Patient/Family are encouraged to report perceived risks to care and to ask questions if they do not understand what they are told or what they should do.
[2021-09-30] MEDS: SODIUM CHLORIDE 0.9% IV 1,000 ML 150 ML IV CONT ×3 (02:26→21:23)
[2021-09-30 04:00] VITALS: BP 111/61; PULSE 80; RESP 16; TEMP 36.7; O2SAT 98
[2021-09-30] MEDS: ONDANSETRON INJ 4 MG/2 ML VIAL IV PUSH ×2 (07:44→15:54)
[2021-09-30 08:18] LABS: Basophils Percent Auto 0.3 % (0.2-1.2); Hemoglobin 11.8 g/dL (12.0-15.0); Immature Granulocyte Absolute 0.05 K/mm3 (0.00-0.031); Immature Granulocyte Percent A 0.4 % (0-0.5); Lymphocytes Absolute Auto 1.56 K/mm3 (0.9-3.2); Lymphocytes Percent Auto 12.3 % (18.3-44.2); Mean Corpuscular HGB Conc 30.3 g/dl (32-36); Mean Corpuscular Hemoglobin 24.7 pg (26-34); Mean Corpuscular Volume 81.6 fl (80-100); Mean Platelet Volume 9.4 fl (7.4-10.4); Platelet Count Result 259 k/mm3 (150-375); Red Blood Count 4.78 M/mm3 (4.2-5.4); Red Cell Distribution Width 14.6 % (11.5-14.5); White Blood Count 12.7 K/mm3 (4.5-10.0)
[2021-09-30 08:38] LABS: Lactic Acid Reflex 1.4 mmol/L (0.7-2.0)
[2021-09-30 08:43] LABS: Anion Gap 7 mmol/L (8-16); Blood Urea Nitrogen 5 mg/dL (7-17); Calcium 7.8 mg/dL (8.4-10.2); Carbon Dioxide 22 mmol/L (22-30); Chloride 106 mmol/L (98-107); Estimated CRCL calculation 96 ml/min; Estimated Glomerular Filt Rate > 60; Glucose 116 mg/dL (65-110); Potassium 3.8 mmol/L (3.4-5.0); Sodium 135 mmol/L (137-145)
[2021-09-30 08:49] LABS: CRP 11.5 mg/dL (<1.0)
--- NOTE | 2021-09-30 12:07 | PM.IMHP ---
H&P: HPI History of Present Illness Date/Time: 09/30/21 12:07 Patient is a 26-year-old female with a past medical history of obesity, cholecystitis and previous sections. She presented to the emergency department due to acute abdominal pain and back pain as well as painful urination. She reports that her pain began Tuesday and progressively became worse throughout the week. Patient has been unable to eat at home and was having significant nausea, vomiting, and reports tactile fevers. This patient reports constant pain and unable to be controlled the emergency department or on the floor. While in the emergency department labs and imaging were obtained. Patient had a fever of 38.3? C, pulse rate 110, respiratory rate 20 and blood pressure 113/66 with a pulse ox of 100. She did receive Tylenol with minimal improvement. WBC 8.2, hemoglobin 12, hematocrit 38.3, platelet 283, sodium 134, potassium 3.6, creatinine 0.7 and BUN is 7. Normal LFTs. UA was significant for wbc's 21-30, rbc's 75, leukocyte a straight 1+ and positive nitrates. CT findings were concerning for cystitis with bilateral ascending infection with right greater than were left. Chest x-ray did not reveal acute cardiopulmonary process. Patient did attempt to leave AMA in the emergency department there for was prescribed Cipro and Zofran however the patient finally became agreeable to staying after multiple long discussions by the emergency department physician as well as nursing staff. Therefore her medications were changed to IV Rocephin and aggressive IV fluid resuscitation. Pending blood and urine cultures. Patient did request to have her diet increase despite her still having nausea and intermittent episodes of emesis. Patient also wishes to leave AMA however she does not have a ride to pick her up due to the family being compliant with the patient's needs for admission. Chief Complaint: Acute abdominal pain and dysuria Review of Systems Review of Systems: All systems reviewed & are unremarkable except as noted in HPI and below PMFSH Past Medical History Medical History Obesity Surgical History Surgical History History of cholecystectomy 03/13/21 Previous section Family History Family History Mother Diabetes mellitus Social History Social History Smoking status: Never smoker Second hand tobacco smoke exposure: No Alcohol intake: never Substance use: never Spiritual care concerns: No Meds Home Medications and Allergies Home Medications Medication Instructions Recorded Confirmed Type ibuprofen 600 mg PO Q8H PRN 03/13/21 09/30/21 History ciprofloxacin HCl [Cipro] 500 mg PO Q12H #20 tablet 09/29/21 Rx ondansetron HCl 4 mg PO Q4H #10 tablet 09/29/21 Rx Allergies Allergy/AdvReac Type Severity Reaction Status Date / Time baclofen AdvReac Chills Verified 03/27/21 10:51 meloxicam AdvReac Chills Verified 03/27/21 10:51 Vital Signs Vital Signs - 24 hr 09/29/21 17:33 09/30/21 01:28 09/30/21 02:06 Temperature 101.0 F H 98.8 F Pulse Rate 110 H 110 H 80 Respiratory Rate 20 20 16 Blood Pressure 113/66 113/66 119/58 L Pulse Oximetry 100 100 100 09/30/21 04:00 Temperature 98.0 F Pulse Rate 80 Respiratory Rate 16 Blood Pressure 111/61 Pulse Oximetry 98 Exam Narrative: General: No acute distress. Obese Mental Status: Awake, alert and oriented to person, place, and time with clear speech. Skin: Skin in warm, dry and intact without rashes or lesions. Head: Normocephalic and atraumatic. Eyes: Conjunctivae are clear without exudates or hemorrhage. Sclera is non-icteric. EOM are intact, PERRLA. Ears: The external ear and canal are non-tender and without swelling or discharge. Nose: Nasal mucosa is pink an
[2021-09-30 14:00] VITALS: BP 100/46; PULSE 108; RESP 18; TEMP 37.7; O2SAT 99
--- NOTE | 2021-09-30 20:44 | PC.NURSE ---
[address] Uribe, informed that pt is requesting regular food, she is now on clear liquid. New order received.
[2021-09-30 22:00] VITALS: BP 110/57; PULSE 80; RESP 18; TEMP 36.9; O2SAT 100
[2021-10-01] MEDS: SODIUM CHLORIDE 0.9% IV 1,000 ML 150 ML IV CONT (03:58)
[2021-10-01] MEDS: ONDANSETRON INJ 4 MG/2 ML VIAL IV PUSH (03:59)
[2021-10-01 05:59] VITALS: BP 107/57; PULSE 95; RESP 18; TEMP 37.2; O2SAT 98
[2021-10-01 08:52] LABS: Basophils Absolute Auto 0.1 K/mm3 (0.0-0.1); Basophils Percent Auto 0.5 % (0.2-1.2); Eosinophils Percent Auto 0.1 % (0-4.4); Hematocrit 35.6 % (37.0-47.0); Immature Granulocyte Absolute 0.04 K/mm3 (0.00-0.031); Immature Granulocyte Percent A 0.4 % (0-0.5); Lymphocytes Absolute Auto 2.57 K/mm3 (0.9-3.2); Lymphocytes Percent Auto 23.9 % (18.3-44.2); Mean Corpuscular HGB Conc 30.9 g/dl (32-36); Mean Corpuscular Hemoglobin 24.7 pg (26-34); Mean Corpuscular Volume 79.8 fl (80-100); Mean Platelet Volume 9.4 fl (7.4-10.4); Monocytes Absolute Auto 0.9 K/mm3 (0.1-0.6); Monocytes Percent Auto 8.3 % (2.6-8.5); Neutrophils Absolute Auto 7.2 K/mm3 (1.3-6.7); Neutrophils Percent Auto 66.8 % (45.5-73.1); Platelet Count Result 236 k/mm3 (150-375); Red Blood Count 4.46 M/mm3 (4.2-5.4); Red Cell Distribution Width 14.6 % (11.5-14.5); White Blood Count 10.8 K/mm3 (4.5-10.0)
[2021-10-01 09:04] LABS: Lactic Acid Reflex 0.7 mmol/L (0.7-2.0)
[2021-10-01 09:36] LABS: CRP 21.7 mg/dL (<1.0)
[2021-10-01] MEDS: HYDROcodone/acetaminophen (*CRX) 5-325 MG TABLET 1 TAB PO (09:58)
--- NOTE | 2021-10-01 12:46 | PM.IMPN ---
Progress Note: A&P Assessment and Plan (1) BMI 28.0-28.9,adult: Code(s): Z68.28 - Body mass index [BMI] 28.0-28.9, adult Status: Acute Assessment and Plan: Discussion about nutritional intake (2) Cystitis: Code(s): N30.90 - Cystitis, unspecified without hematuria Status: Acute Assessment and Plan: CBC, CMP, UA, reviewed Urine culture revealed E coli, sensitive to ceftriaxone-continue this medication Follow temp curve, cultures, WBC, and VS Ceftriaxone 1g IV daily Provide aggressive IV fluid resuscitation Consult urology . Repeat CT of the abdomen and pelvis revealed worsening cystitis and pyelonephritis. Provide oral narcotics for pain management Pending chlamydia and gonorrhea testing (3) Sepsis due to urinary tract infection: Code(s): A41.9 - Sepsis, unspecified organism; N39.0 - Urinary tract infection, site not specified Status: Acute Assessment and Plan: Patient was tachycardic, febrile with an elevated WBC upon admission. Pending blood and urine cultures. Subjective Date/time seen: 10/01/21 12:46 Patient is alert and oriented x4. She continues complain of pain. Added narcotics the patient's medication regimen. Continue IV antibiotics and IV fluids. Patient denies feeling febrile during the night. Consulted Urology due to worsening imaging for pyelonephritis and cystitis. No acute events reported by RN during the night Review of Systems Review of Systems: All systems reviewed & are unremarkable except as noted in HPI and below Exam Narrative: General: No acute distress. Obese Mental Status: Awake, alert and oriented to person, place, and time with clear speech. Skin: Skin in warm, dry and intact without rashes or lesions. Head: Normocephalic and atraumatic. Eyes: Conjunctivae are clear without exudates or hemorrhage. Sclera is non-icteric. EOM are intact, PERRLA. Ears: The external ear and canal are non-tender and without swelling or discharge. Nose: Nasal mucosa is pink and moist. Septum midline. Nares patent bilaterally. Throat: Oral mucosa pink and moist with good dentition. Tongue midline. Neck: The neck supple without adenopathy. Trachea midline. No JVD. Cardiac: S1 and S2 regular rate and rhythm. No murmurs, gallops, or rubs auscultated. Respiratory: Chest wall symmetric, nontender and without deformity or trauma. Respirations even and unlabored. Lung sounds are clear to auscultation in all lobes bilaterally without wheezes, rhonchi, or rales. Abdominal: Abdomen soft, round and mildly-tender to palpation. Bowel sounds present and normoactive in all 4 quadrants. : CVA tenderness bilaterally Spine: Neck and back with grossly normal curvature, no deformity in appearance or signs of trauma. Extremities: Upper and lower extremities atraumatic without tenderness or deformity. Full range of motion and muscle strength 5/5 to all extremities bilaterally. Neurological: Full and symmetric motor and light touch sensation bilaterally. Cranial nerves II-XII grossly intact. Objective Data Vital Signs Vital Signs: Vital Signs - 24 hr 09/30/21 14:00 09/30/21 22:00 10/01/21 05:59 Temperature 99.8 F H 98.4 F 98.9 F Pulse Rate 108 H 80 95 Respiratory Rate 18 18 18 Blood Pressure 100/46 L 110/57 L 107/57 L Pulse Oximetry 99 100 98 Intake/Output Intake/Output: Intake & Output 09/28/21 09/29/21 09/30/21 10/01/21 23:59 23:59 23:59 23:59 Intake Total 1050 3660 2060 Output Total 600 Balance 1050 3060 2060 Meds/Results Medications: Active Medications Generic Name Dose Route Start Last Admin Trade Name Freq PRN Reason Stop Dose Admin Acetaminophen 650 mg 10/01/21 08:20 Acetaminophen 325 Mg Tablet PO Q6H PRN Mild Pain (1-3) or Fever Hydrocodone Bitart/Acetaminophen 1 tab 10/01/21 08:20 10/01/21 09:58 Hydrocodone/Acetaminophen (*Crx) 5-325 Mg Tablet PO 1 tab Q8H PRN Administration Pain Rated 4-6 Ceftriaxone
[2021-10-01 13:01] LABS: Alanine Aminotransferase 11 U/L (6-35); Alkaline Phosphatase 66 U/L (38-126); Anion Gap 5 mmol/L (8-16); Aspartate Amino Transferase 15 U/L (14-36); Bilirubin,Total 0.1 mg/dL (0.2-1.3); Blood Urea Nitrogen 3 mg/dL (7-17); Calcium 7.8 mg/dL (8.4-10.2); Carbon Dioxide 22 mmol/L (22-30); Chloride 107 mmol/L (98-107); Estimated CRCL calculation 111 ml/min; Estimated Glomerular Filt Rate > 60; Glucose 101 mg/dL (65-110); Potassium 3.5 mmol/L (3.4-5.0); Sodium 134 mmol/L (137-145)
[2021-10-01 14:00] VITALS: BP 95/53; PULSE 77; RESP 18; TEMP 36.7; O2SAT 99
--- NOTE | 2021-10-01 15:12 | WPDURCON ---
Assessment and Plan Assessment and plan (1) Acute pyelonephritis: Code(s): N10 - Acute pyelonephritis Status: Acute Assessment and Plan: Persistent pyelonephritis, she should remain on culture sensitive Ceftriaxone overnight. If no concern for , ok to switch to PO Levaquin tomorrow. Since there is no obstruction on CT causing pyelonephritis and no evidence of abscess, the plan will need to be to push water, and antibiotics for 2-3 weeks. It will take weeks to resolve, and she may continue to spike fevers over the next few days. Persistent antibiotics will resolve the infection eventually. I recommend she f/u with our office in two weeks with a ANNELISE prior to ensure pyelo is resolving or resolved. No further evaluation or surgical intervention needed at this time. Urology Consult Note HPI Date Seen: 10/01/21 Requesting Physician: Leonora Uribe DO Primary Care Provider: Jimenez Townsend, Consult Narrative Narrative: Dary Flaherty is a 26 year old female who presented to the ED on 09/29/21 with chills, fever and right flank pain that worsened over the course of several days. She denies hematuria, frequency, urgency, dysuria or abdominal pain. She states she has a history of pyelonephritis which resolved quickly and wasn't persistent. She has been febrile intermittently even as recently as today, initially her WBC was normal, but over the past two days has spiked up to >12,000 and is now down today to >10,000. She continues to have chills, intermittent tachycardia and fever as well as moderate to severe right flank pain. She had an initial CT on 09/29/21 which showed bilateral pyelonephritis, worse on the right side. A CT was then repeated today d/t worsening symptoms and a rising WBC with persistent fevers, but shows slightly worsening pyelonephritis without obstruction or evidence of an abscess. Her urine culture grew E-Coli sensitive to Ceftriaxone which she remains on, preliminary blood cultures are negative. The patient is tearful and frustrated at the bedside today. Review of Systems Constitutional: Constitutional: Reports chills and Reports fever(s) Cardiovascular: Cardiovascular: Denies chest pain Respiratory: Respiratory: Reports no additional respiratory complaints Gastrointestinal: Gastrointestinal: Denies abdominal pain, Denies nausea and Denies vomiting Genitourinary: Genitourinary: Denies hematuria, Denies nocturia, Denies dysuria, Denies pelvic pain, Reports flank pain and Denies urinary urgency PMFSH Past Medical History Medical History Obesity Surgical History Surgical History History of cholecystectomy 03/13/21 Previous section Family History Family History Mother Diabetes mellitus Social History Social History Smoking status: Never smoker Second hand tobacco smoke exposure: No Alcohol intake: never Substance use: never Spiritual care concerns: No Meds Home Medications and Allergies Home Medications Medication Instructions Recorded Confirmed Type ibuprofen 600 mg PO Q8H PRN 03/13/21 09/30/21 History ciprofloxacin HCl [Cipro] 500 mg PO Q12H #20 tablet 09/29/21 Rx ondansetron HCl 4 mg PO Q4H #10 tablet 09/29/21 Rx Allergies Allergy/AdvReac Type Severity Reaction Status Date / Time baclofen AdvReac Chills Verified 03/27/21 10:51 meloxicam AdvReac Chills Verified 03/27/21 10:51 Vital Signs Vital Signs - 24 hr 09/30/21 22:00 10/01/21 05:59 Temperature 98.4 F 98.9 F Pulse Rate 80 95 Respiratory Rate 18 18 Blood Pressure 110/57 L 107/57 L Pulse Oximetry 100 98 Exam Resp: Effort & Inspection: normal respiratory effort Cardio: Rate: regular rate GI: GI Palp: Yes Soft to palpation and No Tende
[2021-10-01] MEDS: MELATONIN 5 MG TABLET PO (21:08)
[2021-10-01] MEDS: ACETAMINOPHEN 325 MG TABLET 650 MG PO (21:08)
[2021-10-01 21:51] VITALS: BP 101/60; PULSE 87; RESP 18; TEMP 36.8; O2SAT 98
[2021-10-02 05:39] VITALS: BP 100/48; PULSE 65; RESP 18; TEMP 36.8; O2SAT 100
[2021-10-02] MEDS: SODIUM CHLORIDE 0.9% IV 1,000 ML 150 ML IV CONT (06:15)
--- NOTE | 2021-10-02 08:08 | WPDUROPN2 ---
Progress Note: A&P Assessment and Plan (1) Acute pyelonephritis: Code(s): N10 - Acute pyelonephritis Status: Acute Assessment and Plan: Persistent pyelonephritis, she should remain on culture sensitive Ceftriaxone overnight. If no concern for , ok to switch to PO Levaquin tomorrow. Since there is no obstruction on CT causing pyelonephritis and no evidence of abscess, the plan will need to be to push water, and antibiotics for 2-3 weeks. It will take weeks to resolve, and she may continue to spike fevers over the next few days. Persistent antibiotics will resolve the infection eventually. I recommend she f/u with our office in two weeks with a ANNELISE prior to ensure pyelo is resolving or resolved. No further evaluation or surgical intervention needed at this time. 10/02/2021 As above, I'm comfortable with discharge on oral abx. x2 weeks. I've explained to pt. the anticipated, prolonged (2-3 weeks) course to expect resolution fo all affect of this pyelonephritis. Subjective Subjective Date/Time Seen: 10/02/21 08:08 Uneventful night / comfortable Review of Systems Cardiovascular: Cardiovascular: Denies chest pain, Denies lightheadedness, Denies palpitations and Denies dyspnea Respiratory: Respiratory: Denies dyspnea Gastrointestinal: Gastrointestinal: Denies diarrhea, Denies nausea and Denies vomiting Genitourinary: Genitourinary: Denies hematuria and Denies dysuria Endocrine: Endocrine: Denies palpitations Exam Const: General: no acute distress Resp: Effort & Inspection: normal respiratory effort GI: Inspection: non-distended GI Palp: No abdominal tenderness and No Guarding due to palpation present (GI) Auscultation: normal bowel sounds Objective Data Vital Signs Vital Signs: Vital Signs - 24 hr 10/01/21 14:00 10/01/21 21:51 10/02/21 05:39 Temperature 98.1 F 98.3 F 98.2 F Pulse Rate 77 87 65 Respiratory Rate 18 18 18 Blood Pressure 95/53 L 101/60 100/48 L Pulse Oximetry 99 98 100 Intake/Output Intake/Output: Intake & Output 09/29/21 09/30/21 10/01/21 10/02/21 23:59 23:59 23:59 23:59 Intake Total 1050 3660 4360 250 Output Total 600 Balance 1050 3060 4360 250 Meds/Results Medications: Active Medications Generic Name Dose Route Start Last Admin Trade Name Freq PRN Reason Stop Dose Admin Acetaminophen 650 mg 10/01/21 08:20 10/01/21 21:08 Acetaminophen 325 Mg Tablet PO 650 mg Q6H PRN Administration Mild Pain (1-3) or Fever Hydrocodone Bitart/Acetaminophen 1 tab 10/01/21 08:20 10/01/21 09:58 Hydrocodone/Acetaminophen (*Crx) 5-325 Mg Tablet PO 1 tab Q8H PRN Administration Pain Rated 4-6 Sodium Chloride 1,000 mls @ 100 mls/hr 09/29/21 22:35 10/02/21 06:15 Normal Saline Iv IV CONT 150 mls/hr .Q10H RONAK Administration Levofloxacin 750 mg 10/02/21 09:00 Levofloxacin 750 Mg Tablet PO 10/16/21 08:59 DAILY RONAK Melatonin 5 mg 10/01/21 21:00 10/01/21 21:08 Melatonin 5 Mg Tablet PO 5 mg HS RONAK Administration Ondansetron HCl 4 mg 10/01/21 08:21 Ondansetron Inj 4 Mg/2 Ml Vial IV PUSH Q6H PRN Nausea And Vomiting Radiology Results: ITS Impressions Chest X-Ray 09/29/21 21:43 IMPRESSION: No acute cardiopulmonary process Abdomen/Pelvis CT 10/01/21 12:31 IMPRESSION: 1. Findings consistent with right pyelonephritis with slight worsening. Labs Labs: Laboratory Results - last 24 hr 10/01/21 10/01/21 10/01/21 08:42 08:42 08:42 WBC 10.8 H RBC 4.46 Hgb 11.0 L Hct 35.6 L MCV 79.8 L MCH 24.7 L MCHC 30.9 L RDW 14.6 H Plt Count 236 MPV 9.4 Immature Gran % (Auto) 0.4 Neut % (Auto) 66.8 Lymph % (Auto) 23.9 Vernon % (Auto) 8.3 Eos % (Auto) 0.1 Baso % (Auto) 0.5 Lymph # (Auto) 2.57 Vernon # (Auto) 0.9 H Eos # (Auto) 0.0 Baso # (Auto) 0.1 Abs Immat Gran (auto) 0.04 H Absolute Neuts (auto) 7.2 H Absolut
[2021-10-02 08:50] LABS: Basophils Percent Auto 0.4 % (0.2-1.2); Eosinophils Absolute Auto 0.1 K/mm3 (0-0.3); Eosinophils Percent Auto 1.1 % (0-4.4); Hematocrit 35.6 % (37.0-47.0); Hemoglobin 11.2 g/dL (12.0-15.0); Immature Granulocyte Absolute 0.02 K/mm3 (0.00-0.031); Immature Granulocyte Percent A 0.3 % (0-0.5); Lymphocytes Absolute Auto 2.56 K/mm3 (0.9-3.2); Lymphocytes Percent Auto 34.3 % (18.3-44.2); Mean Corpuscular HGB Conc 31.5 g/dl (32-36); Mean Corpuscular Hemoglobin 24.8 pg (26-34); Mean Corpuscular Volume 78.9 fl (80-100); Mean Platelet Volume 9.4 fl (7.4-10.4); Monocytes Absolute Auto 0.5 K/mm3 (0.1-0.6); Monocytes Percent Auto 6.8 % (2.6-8.5); Neutrophils Absolute Auto 4.3 K/mm3 (1.3-6.7); Neutrophils Percent Auto 57.1 % (45.5-73.1); Platelet Count Result 281 k/mm3 (150-375); Red Blood Count 4.51 M/mm3 (4.2-5.4); Red Cell Distribution Width 14.8 % (11.5-14.5); White Blood Count 7.5 K/mm3 (4.5-10.0)
[2021-10-02 09:02] LABS: Alanine Aminotransferase 11 U/L (6-35); Albumin Level 3.3 g/dL (3.5-5.1); Alkaline Phosphatase 71 U/L (38-126); Anion Gap 6 mmol/L (8-16); Aspartate Amino Transferase 21 U/L (14-36); Bilirubin,Total 0.2 mg/dL (0.2-1.3); Blood Urea Nitrogen 6 mg/dL (7-17); Calcium 8.3 mg/dL (8.4-10.2); Carbon Dioxide 23 mmol/L (22-30); Chloride 108 mmol/L (98-107); Estimated CRCL calculation 111 ml/min; Estimated Glomerular Filt Rate > 60; Glucose 94 mg/dL (65-110); Magnesium 2.1 mg/dL (1.6-2.3); Potassium 3.6 mmol/L (3.4-5.0); Sodium 137 mmol/L (137-145)
[2021-10-02] MEDS: levoFLOXacin 750 MG TABLET PO (10:24)
--- NOTE | 2021-10-02 11:58 | PM.DS ---
DS: Admitting Diagnosis Discharge Date 10/02/21 Admitting Diagnosis Acute pyelonephritis Urinary tract infection DS: Discharge Diagnosis Discharge Diagnosis (1) BMI 28.0-28.9,adult: Code(s): Z68.28 - Body mass index [BMI] 28.0-28.9, adult Status: Acute Assessment and Plan: Discussion about nutritional intake (2) Cystitis: Code(s): N30.90 - Cystitis, unspecified without hematuria Status: Acute Assessment and Plan: CBC, CMP, UA, reviewed Urine culture revealed E coli, sensitive to ceftriaxone-continue this medication Follow temp curve, cultures, WBC, and VS Ceftriaxone 1g IV daily Provide aggressive IV fluid resuscitation Consult urology . Repeat CT of the abdomen and pelvis revealed worsening cystitis and pyelonephritis. Provide oral narcotics for pain management Pending chlamydia and gonorrhea testing (3) Sepsis due to urinary tract infection: Code(s): A41.9 - Sepsis, unspecified organism; N39.0 - Urinary tract infection, site not specified Status: Acute Assessment and Plan: Patient was tachycardic, febrile with an elevated WBC upon admission. Pending blood and urine cultures. DS: Summary Hospital Course Reason for hospitalization: Acute pyelonephritis Hospital Course: Patient is a 26-year-old female with a past medical history of obesity, cholecystitis and previous sections. She presented to the emergency department due to acute abdominal pain and back pain as well as painful urination. She reports that her pain began Tuesday and progressively became worse throughout the week. Patient has been unable to eat at home and was having significant nausea, vomiting, and reports tactile fevers. This patient reports constant pain and unable to be controlled the emergency department or on the floor. While in the emergency department labs and imaging were obtained. Patient had a fever of 38.3? C, pulse rate 110, respiratory rate 20 and blood pressure 113/66 with a pulse ox of 100. She did receive Tylenol with minimal improvement. WBC 8.2, hemoglobin 12, hematocrit 38.3, platelet 283, sodium 134, potassium 3.6, creatinine 0.7 and BUN is 7. Normal LFTs. UA was significant for wbc's 21-30, rbc's 75, leukocyte a straight 1+ and positive nitrates. CT findings were concerning for cystitis with bilateral ascending infection with right greater than were left. Chest x-ray did not reveal acute cardiopulmonary process. Patient did attempt to leave AMA in the emergency department there for was prescribed Cipro and Zofran however the patient finally became agreeable to staying after multiple long discussions by the emergency department physician as well as nursing staff. Therefore her medications were changed to IV Rocephin and aggressive IV fluid resuscitation. Patient was admitted to the floor and started on IV antibiotics and aggressive IV fluid resuscitation. Urology was consulted for worsening acute abdominal pain as well as worsening CT findings. Patient will continue ciprofloxacin times 14 days and p.r.n. Zofran. She will have a follow-up with Urology within 2 weeks as well as an renal ultrasound within 1-2 weeks. Patient was agreeable to plan and understood that this will be a long course treatment and take medications as prescribed. She was also educated on antibiotic usage in control and their interactions. She was educated to perform safe sex while taking ciprofloxacin. Status at Discharge Cognitive/behavioral status at discharge: Alert and oriented x4 Functional status at discharge: independent ambulation Overall status at discharge: patient is progressing back to baseline Time Spent with Patient Time attestation: Total time spent providing and/or coordinating discharge services: Time spent: Greater than 30 minutes Exam Narrative: General: No acute distress. Obese Mental Status: Awake, alert and oriented to person, place, and time with clear speech. Skin: S
== END 2021-10-02 11:55 | disposition home or self-care (01) | DRG 872 ==
LOC: ANHED 21:56 → ANH3MEDSUR 09-30 01:21
PROVIDERS: Nurse Practitioner Family; Admitting Provider Internal Medicine; Emergency Provider Emergency Medicine; PCP Family Medicine; Visit Provider Student in an Organized Health Care Education/Training Program
DX: A41.9 Sepsis, unspecified organism (principal); N10 Acute pyelonephritis; N30.00 Acute cystitis without hematuria; Z20.822 Contact with and (suspected) exposure to COVID-19; E66.9 Obesity, unspecified; Z68.28 Body mass index [BMI] 28.0-28.9, adult; B96.20 Unspecified Escherichia coli [E. coli] as the cause of diseases classified elsewhere
CPT/HCPCS: 36415; 71045; 74176; 74177; 80048; 80053; 81001; 81025; 83605; 83690; 83735; 85025; 86140; 87040; 87077; 87086; 87088; 87186; 87491; 87502; 87591; 96361; 96365; 96366; 96367; 96375; 96376; 99285; A9270; C9803; G0378; J0131; J0696; J2405; J7030; Q9967; U0003; U0005

== ENCOUNTER 2021-10-20 12:34 | Outpatient (CLI) | payer BC, MEDICAID, SELFPAY ==
--- NOTE | ~2021-10-20 | US_ITS ---
US renal BI 10/20/2021 13:00 Procedure: Realtime transabdominal ultrasound of the kidneys and bladder. Indication: Acute pyelonephritis Comparison: CT dated 10/01/2021 Findings: Renal echotexture is normal bilaterally without hydronephrosis, contour deforming mass or r enal calculus. The right kidney measures 10.5 cm and left kidney measures 10.8 cm. Bladder within no rmal limits. Impression: 1: Unremarkable renal ultrasound. No stones, masses or hydronephrosis. Reviewed, dictated and finalized at location B. Impression: 1: Unremarkable renal ultrasound. No stones, masses or hydronephrosis.
== END 2021-10-20 12:35 | disposition home or self-care (01) ==
PROVIDERS: PCP Family Medicine; Visit Provider Nurse Practitioner Family
DX: N10 Acute pyelonephritis (principal)
CPT/HCPCS: 76775

== ENCOUNTER 2022-03-20 10:30 | Emergency (ER) | payer BC, MEDICAID, SELFPAY ==
--- NOTE | ~2022-03-20 | XR_ITS ---
XR chest 1V portable DATE: 03/20/2022 11:23 INDICATION: Cough TECHNIQUE: Portable upright AP chest on 03/20/2022 1120 hours COMPARISON: 09/29/2021 portable AP chest FINDINGS: Normal heart size. No hilar or mediastinal enlargement. No pulmonary infiltrate or consolid ation, pleural effusion or pulmonary vascular congestion or pneumothorax. Included skeletal structure s are unremarkable. Surgical clips, right upper quadrant, consistent with cholecystectomy. IMPRESSION: No active cardiopulmonary disease Reviewed, dictated and finalized at location A.
[2022-03-20 10:33] VITALS: BP 102/70; PULSE 114; RESP 17; TEMP 37.7; O2SAT 100
--- NOTE | 2022-03-20 11:00 | PC.NURSE ---
1055 Assumed pt care from PETER Ochoa
--- NOTE | 2022-03-20 11:32 | ED.GENADULT ---
HPI - General Adult General Chief complaint: Upper Respiratory Infection Stated complaint: FEVER,BODY ACHES Time Seen by Provider: 03/20/22 10:35 Source: RN notes reviewed History of Present Illness HPI narrative: Patient presents emergency department from home for flulike symptoms. Patient states that symptoms began this morning states that she has been having generalized body aches a cough that has been nonproductive he had nausea and vomiting she denies any measured fever states she does have a mild sore throat with rhinorrhea she denies any ear pain chest pain abdominal pain or any other symptoms states she not take anything for the symptoms at Related Data Allergies Allergy/AdvReac Type Severity Reaction Status Date / Time baclofen AdvReac Chills Verified 03/27/21 10:51 meloxicam AdvReac Chills Verified 03/27/21 10:51 Review of Systems Review of Systems: Gen.: Denies fevers reports chills and generalized body aches Eyes: Denies eye pain or visual change ENT: See HPI Respiratory: Denies shortness of breath reports cough CV: Denies chest pain or palpitations GI: Denies abdominal pain or diarrhea. Reports nausea and vomiting Musculoskeletal: Denies back pain or muscle pain Neuro: Denies numbness, tingling, weakness or focal weakness Skin: Denies rash Except as documented, all other systems reviewed and negative [facility] Past Medical History Medical History Obesity Surgical History Surgical History History of cholecystectomy 03/13/21 Previous section Family History Family History Mother Diabetes mellitus Social History Social History Smoking status: Never smoker Second hand tobacco smoke exposure: No Alcohol intake: never Substance use: never Spiritual care concerns: No Exam Narrative: APPEARANCE: No acute distress, nontoxic, resting in bed EYES: EOMI HEENT: Normocephalic, atraumatic, TMs clear bilaterally nares patent with mild erythema of the posterior pharynx bilateral tonsils with no exudate uvula midline no trismus RESPIRATORY: No respiratory distress Clear to auscultation bilaterally with no rhonchi wheezing or rales. CARDIOVASCULAR: Regular rate and rhythm without murmurs rubs or gallops. ABDOMINAL: Soft, nontender, nondistended, no rebound or guarding MUSCULOSKELETAl: Moves all extremities. No clubbing, cyanosis or edema. NEURO: Awake and alert. Following commands, speech normal, no focal deficits SKIN:: Warm, dry. No rashes lesions or abrasions PSYCHIATRIC: Normal affect/mood, Course Course Emergency Course: Discussed with patient results of workup and diagnosis. Discussed need for follow-up with primary care, proper use of medication, and reasons to return to the emergency department. Patient understands and agrees to current treatment plan Vital Signs Vital signs: Vital Signs Temperature 99.9 F H 03/20/22 10:33 Pulse Rate 114 H 03/20/22 10:33 Respiratory Rate 17 03/20/22 10:33 Blood Pressure 102/70 03/20/22 10:33 Pulse Oximetry 100 03/20/22 10:33 Oxygen Delivery Room Air 03/20/22 10:33 Temperature 99.9 F H 03/20/22 10:33 Pulse Rate 114 H 03/20/22 10:33 Respiratory Rate 17 03/20/22 10:33 Blood Pressure 102/70 03/20/22 10:33 Pulse Oximetry 100 03/20/22 10:33 Oxygen Delivery Room Air 03/20/22 10:33 Medical Decision Making Vital Signs Vital Signs: Vital Signs Temperature 99.9 F H 03/20/22 10:33 Pulse Rate 114 H 03/20/22 10:33 Respiratory Rate 17 03/20/22 10:33 Blood Pressure 102/70 03/20/22 10:33 Pulse Oximetry 100 03/20/22 10:33 Oxygen Delivery Room Air 03/20/22 10:33 Temperature 99.9 F H 03/20/22 10:33 Pulse Rate 114 H 03/20/22 10:33 Respiratory Rate 17 03/20/22 10:33 Bl
[2022-03-20 11:37] LABS: Influenza A QL RT-PCR Positive (Negative); Influenza B QL RT-PCR Negative (Negative); SARS-CoV-2 RNA PCR Negative
[2022-03-20] MEDS: ACETAMINOPHEN 500 MG TABLET 1000 MG PO (11:46)
[2022-03-20] MEDS: ONDANSETRON HCL ODT 4 MG TABLET PO (11:46)
[2022-03-20 12:31] VITALS: BP 106/48; PULSE 102; RESP 16; TEMP 37.4; O2SAT 96
== END 2022-03-20 12:38 | disposition home or self-care (01) ==
PROVIDERS: Emergency Provider Emergency Medicine; PCP Family Medicine
DX: J10.1 Influenza due to other identified influenza virus with other respiratory manifestations (principal); Z20.822 Contact with and (suspected) exposure to COVID-19; E66.9 Obesity, unspecified; Z68.29 Body mass index [BMI] 29.0-29.9, adult
CPT/HCPCS: 71045; 87636; 99283; A9270

== ENCOUNTER 2022-08-21 17:18 | Emergency (ER) | payer OTHER, BC, MEDICAID, SELFPAY ==
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
[2022-08-21 17:26] VITALS: BP 110/68; PULSE 98; RESP 18; TEMP 36.5; O2SAT 99
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
[2022-08-21] MEDS: IBUPROFEN 600 MG TABLET PO (19:21)
[2022-08-21] MEDS: ACETAMINOPHEN 500 MG TABLET 1000 MG PO (19:21)
[2022-08-21 19:28] VITALS: BP 108/76; PULSE 85; RESP 15; TEMP 36.6; O2SAT 100
== END 2022-08-21 19:30 | disposition home or self-care (01) ==
PROVIDERS: Emergency Provider Physician Assistant; PCP Family Medicine
DX: S69.92XA Unspecified injury of left wrist, hand and finger(s), initial encounter (principal); E66.9 Obesity, unspecified; Z68.31 Body mass index [BMI] 31.0-31.9, adult; W23.0XXA Caught, crushed, jammed, or pinched between moving objects, initial encounter
CPT/HCPCS: 29130; 73140; 99283; A9270

== ENCOUNTER 2022-09-15 12:19 | Emergency (ER) | payer BC, MEDICAID, SELFPAY ==
[2022-09-15 12:26] VITALS: BP 118/73; PULSE 74; RESP 16; TEMP 36.2; O2SAT 99
--- NOTE | 2022-09-15 12:57 | ED.BACK ---
HPI - Back Pain/Injury General Chief Complaint: Back Pain/Injury <Dalia Santos APRN - Last Filed: 09/15/22 14:14> Stated Complaint: back pain <Dalia Santos APRN - Last Filed: 09/15/22 14:14> Time Seen by Provider: 09/15/22 12:36 <Dalia Santos APRN - Last Filed: 09/15/22 14:14> Source: patient <Dalia Santos APRN - Last Filed: 09/15/22 14:14> Mode of arrival: ambulatory <Dalia Santos APRN - Last Filed: 09/15/22 14:14> Limitations: no limitations <Dalia Santos APRN - Last Filed: 09/15/22 14:14> History of Present Illness HPI Narrative: 27-year-old female with known history of back pain presents today with complaints of back pain that has been worse today. Patient states she has not done anything out of the normal the last few days so she does not understand why the pain is increased today. Patient rating low back pain 8 out of a 10 at this current time. Patient has not taken any medication prior to arrival to alleviate pain. Patient states she has naproxen and cyclobenzaprine at home. Patient denies any urinary incontinence, bowel incontinence, saddle paresthesia, leg weakness. Patient has had a MRI done recently which she states shows arthropathy and bulging disks. Imaging is not available for review. Patient states she has an appointment with her primary care doctor on Tuesday to review her options which 1 is including pain management. <Dalia Santos APRN - Last Filed: 09/15/22 14:14> MD elicited complaint: back pain <Dalia Santos APRN - Last Filed: 09/15/22 14:14> Pain scale (0-10): 8 <Dalia Santos APRN - Last Filed: 09/15/22 14:14> Quality: sharp and aching <Dalia Santos APRN - Last Filed: 09/15/22 14:14> Location: lumbar spine <Dalia Santos APRN - Last Filed: 09/15/22 14:14> Radiation: none <Dalia Santos APRN - Last Filed: 09/15/22 14:14> Exacerbating factors: movement and sitting upright <Dalia Mccoy Last Filed: 09/15/22 14:14> Related Data Allergies/Adverse Reactions: Allergies Allergy/AdvReac Type Severity Reaction Status Date / Time baclofen AdvReac Chills Verified 09/15/22 12:30 meloxicam AdvReac Chills Verified 09/15/22 12:30 <Dalia Santos, MICROWAVE TECHNICIAN - Last Filed: 09/15/22 14:14> Review of Systems Constitutional: Constitutional: Reports no additional constitutional complaints, Denies body ache(s), Denies chills and Denies fever(s) <Dalia SantosAugN Last Filed: 09/15/22 14:14> Cardiovascular: Cardiovascular: Reports no additional cardiovascular complaints and Denies chest pain <Dalia SantosAugN Last Filed: 09/15/22 14:14> Respiratory: Respiratory: Reports no additional respiratory complaints and Denies cough <Dalia Mccoy Last Filed: 09/15/22 14:14> Musculoskeletal: Musculoskeletal: Reports as per HPI and Reports back pain <Dalia Mccoy Last Filed: 09/15/22 14:14> Neurologic: Reports system reviewed and no additional complaints, except as documented and Reports as per HPI <Dalia Mccoy Last Filed: 09/15/22 14:14> [facility] Past Medical History Medical History: Medical History Obesity <Dalia SantosAugN Last Filed: 09/15/22 14:14> Surgical History Surgical History: Surgical History History of cholecystectomy 03/13/21 Previous section <Dalia Santos Last Filed: 09/15/22 14:14> Family History Family History: Family History Mother Diabetes mellitus <Dalia Santos, MICROWAVE TECHNICIAN - Last Filed: 09/15/22 14:14> Social History Social History: Social History Smoking status: Never smoker Second hand tobacco smoke exposure: No Alcohol intake: never Substance use: ne
[2022-09-15] MEDS: LIDOCAINE 5% PATCH 2 PATCH TRANSDERM (13:15)
[2022-09-15] MEDS: ORPHENADRINE CITRATE 100 MG TABLET.ER PO (13:16)
[2022-09-15] MEDS: NAPROXEN 500 MG TABLET PO (13:16)
[2022-09-15 14:07] VITALS: BP 117/70; PULSE 70; RESP 16; O2SAT 99
== END 2022-09-15 14:09 | disposition home or self-care (01) ==
PROVIDERS: Emergency Provider Nurse Practitioner Family; PCP Family Medicine
DX: M54.50 Low back pain, unspecified (principal); G89.29 Other chronic pain; E66.9 Obesity, unspecified; Z68.31 Body mass index [BMI] 31.0-31.9, adult; Z90.49 Acquired absence of other specified parts of digestive tract
CPT/HCPCS: 81025; 99283; A9270

== ENCOUNTER 2022-10-26 17:38 | Emergency (ER) | payer BC, MEDICAID, SELFPAY ==
--- NOTE | ~2022-10-26 | XR_ITS ---
EXAM: XR ankle RT min 3V, XR foot RT min 3V DATE: 10/26/2022 19:00 (accession [id number]), 10/26/2022 18:59 (accession [id number]) HISTORY: fall, twisted ankle . COMPARISON: None available. FINDINGS: Normal mineralization. No fracture or dislocation. No lytic or blastic lesion. Joint space s are maintained. No erosion or periosteal change. Soft tissues within normal limits. IMPRESSION: No acute osseous finding in the right foot or ankle. Reviewed, dictated and finalized at location K. IMPRESSION: No acute osseous finding in the right foot or ankle.
[2022-10-26 18:18] VITALS: BP 93/62; PULSE 76; RESP 18; TEMP 36.4; O2SAT 100
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
[2022-10-26] MEDS: ACETAMINOPHEN 500 MG TABLET 1000 MG PO (20:08)
[2022-10-26 20:10] VITALS: BP 107/59; PULSE 70; RESP 16; O2SAT 99
--- NOTE | 2022-10-26 20:32 | PC.NURSE ---
2009-[employer]UTCH TRAINING AND VITA WRAP COMPLETED BY EMT.
== END 2022-10-26 20:10 | disposition home or self-care (01) ==
PROVIDERS: Emergency Provider Physician Assistant; PCP Family Medicine
DX: O9A.211 Injury, poisoning and certain other consequences of external causes complicating pregnancy, first trimester (principal); S93.401A Sprain of unspecified ligament of right ankle, initial encounter; E66.9 Obesity, unspecified; Z90.49 Acquired absence of other specified parts of digestive tract; W18.40XA Slipping, tripping and stumbling without falling, unspecified, initial encounter; X50.9XXA Other and unspecified overexertion or strenuous movements or postures, initial encounter; Z3A.01 Less than 8 weeks gestation of pregnancy
CPT/HCPCS: 73610; 73630; 99283; A9270

== ENCOUNTER 2023-09-11 17:41 | Emergency (ER) | payer BC, MEDICAID, SELFPAY ==
--- NOTE | ~2023-09-11 | XR_ITS ---
EXAMINATION: XR knee RT min 4V DATE: 09/11/2023 18:37 INDICATION: Right knee pain. Swelling. TECHNIQUE: 4 views of right knee were obtained. COMPARISON: None. FINDINGS: Bone alignment is normal. No fracture. There is mild osteoarthritis of lateral compartment. No knee joint effusion. IMPRESSION: 1. Mild right knee osteoarthritis. Reviewed, dictated and finalized at location E.
[2023-09-11 17:41] VITALS: BP 113/62; PULSE 88; RESP 16; TEMP 36.3; O2SAT 98
[2023-09-11 18:16] LABS: Basophils Absolute Auto 0.1 K/mm3 (0.0-0.1); Basophils Percent Auto 0.6 % (0.2-1.2); Eosinophils Absolute Auto 0.1 K/mm3 (0-0.3); Eosinophils Percent Auto 1.1 % (0-4.4); Hematocrit 38.4 % (37.0-47.0); Hemoglobin 12.3 g/dL (12.0-15.0); Immature Granulocyte Absolute 0.02 K/mm3 (0.00-0.031); Immature Granulocyte Percent A 0.2 % (0-0.5); Lymphocytes Absolute Auto 2.71 K/mm3 (0.9-3.2); Lymphocytes Percent Auto 28.2 % (18.3-44.2); Mean Corpuscular Hemoglobin 26.7 pg (26-34); Mean Corpuscular Volume 83.5 fl (80-100); Mean Platelet Volume 9.4 fl (7.4-10.4); Monocytes Absolute Auto 0.4 K/mm3 (0.1-0.6); Monocytes Percent Auto 4.6 % (2.6-8.5); Neutrophils Absolute Auto 6.3 K/mm3 (1.3-6.7); Neutrophils Percent Auto 65.3 % (45.5-73.1); Platelet Count Result 337 k/mm3 (150-375); Red Cell Distribution Width 14.9 % (11.5-14.5); White Blood Count 9.6 K/mm3 (4.5-10.0)
[2023-09-11 18:27] LABS: INR 0.9
[2023-09-11 18:28] LABS: Partial Thromboplastin Time 25.9 Seconds (22.3-36.8)
[2023-09-11 18:29] LABS: Anion Gap 7 mmol/L (4-12); Blood Urea Nitrogen 19 mg/dL (7-17); Calcium 9.2 mg/dL (8.4-10.2); Carbon Dioxide 26 mmol/L (22-30); Chloride 106 mmol/L (98-107); Estimated CRCL calculation 65 ml/min; Estimated Glomerular Filt Rate 54; Glucose 118 mg/dL (65-110); Potassium 4.4 mmol/L (3.4-5.0); Sodium 139 mmol/L (137-145)
[2023-09-11 18:33] LABS: D Dimer 0.29 ug/mL (<0.48)
--- NOTE | 2023-09-11 18:41 | ED.EXTPRO ---
HPI - Extremity Problem General Chief complaint: Extremity Problem,Nontraumatic Stated complaint: LE Swelling Time Seen by Provider: 09/11/23 17:58 Source: patient Mode of arrival: ambulatory Limitations: no limitations History of Present Illness HPI Narrative: This is a 28 year old female that presents to the ER for right knee pain. Ongoing since yesterday. No known injuries or trauma. Reports swelling to the area. Reports decreased ROM due to pain. Denies fever, erythema. Related Data Allergies Allergy/AdvReac Type Severity Reaction Status Date / Time baclofen AdvReac Chills Verified 09/11/23 18:21 meloxicam AdvReac Chills Verified 09/11/23 18:21 Review of Systems Review of Systems: CONSTITUTIONAL: Denies fever SKIN: Denies rash MUSCULOSKELETAL: Reports joint pain, and myalgia. All systems reviewed & are unremarkable except as noted in HPI and below PMFSH Past Medical History Medical History Obesity Surgical History Surgical History History of cholecystectomy 03/13/21 Previous section Family History Family History Mother Diabetes mellitus Social History Social History Smoking status: Never smoker Second hand tobacco smoke exposure: No Alcohol intake: never Substance use: never Living arrangements: with family Spiritual care concerns: No Exam Narrative: GENERAL: Well-appearing, well-nourished, and in no acute distress. HEAD: Normocephalic, atraumatic. EYES: EOMI. CHEST: Clear to auscultation. No respiratory distress. No wheezes rales or rhonchi HEART: Regular rate and rhythm. No murmur heard. Normal peripheral pulses. ABDOMEN: Soft, nontender, nondistended, normal active bowel sounds. EXTREMITIES: Normal range of motion. No notable edema or erythema. Normal DP pulse. Normal sensation SKIN: Warm, dry, no rash. NEURO: No focal deficits. Alert and oriented x3. PSYCH: Normal mood and affect Course Course Emergency Course: Patient updated on her workup and agrees with plan of care Vital Signs Vital signs: Vital Signs Temperature 97.3 F L 09/11/23 17:41 Pulse Rate 88 09/11/23 17:41 Respiratory Rate 16 09/11/23 17:41 Blood Pressure 113/62 09/11/23 17:41 Pulse Oximetry 98 09/11/23 17:41 Temperature 98.7 F 09/11/23 20:17 Pulse Rate 69 09/11/23 20:17 Respiratory Rate 19 09/11/23 20:17 Blood Pressure 103/69 09/11/23 20:17 Pulse Oximetry 98 09/11/23 20:17 MDM - Extremity (Nontraumatic) MDM Narrative Medical decision making narrative: Patient presents to the ER for right knee swelling and pain ongoing since yesterday. No known injury or trauma. She is neurovascularly intact. Right knee x-ray shows osteoarthritis. CBC without leukocytosis. Metabolic panel with elevated in creatinine to 1.2. Our most recent labs are from 2021. Patient's creatinine was 0.6 at that time. Patient refused IV fluids at this time. She was instructed she should hydrate and have her blood work rechecked by her PCP in the next couple of days. She was updated on her x-ray. Instructed on continuing Tylenol for pain with current kidney function. She is to follow up with her PCP. She was given warnings to return to the ER Differential Diagnosis Differential diagnosis: Likely cellulitis and other (Osteoarthritis, DVT, knee sprain) Lab Data Attestation: I reviewed the patient's lab results. 09/11/23 18:11 09/11/23 18:11 Labs: Lab Results 09/11/23 Range/Units 18:11 WBC 9.6 (4.5-10.0) K/mm3 RBC 4.60 (4.2-5.4) M/mm3 Hgb 12.3 (12.0-15.0) g/dL Hct 38.4 (37.0-47.0) % MCV 83.5 (80-100) fl MCH 26.7 (26-34) pg MCHC 32.0 (32-36) g/dl RDW 14.9 H (11.5-14.5) % Plt Count 337 (150-375)
[2023-09-11] MEDS: ACETAMINOPHEN 500 MG TABLET 1000 MG PO (19:06)
--- NOTE | 2023-09-11 19:08 | PC.NURSE ---
Pt refuses to get IV and refuses IV fluids. EDP Josee Au PA-C made aware
--- NOTE | 2023-09-11 19:11 | PC.NURSE ---
Report given to Cat RN, all questions answered
--- NOTE | 2023-09-11 19:14 | PC.NURSE ---
Report received from PETER Nichols. Assumed care of patient at this time.
[2023-09-11 20:17] VITALS: BP 103/69; PULSE 69; RESP 19; TEMP 37.1; O2SAT 98
== END 2023-09-11 20:30 | disposition home or self-care (01) ==
PROVIDERS: Emergency Provider Physician Assistant; PCP Family Medicine
DX: M17.11 Unilateral primary osteoarthritis, right knee (principal); N17.9 Acute kidney failure, unspecified; E66.9 Obesity, unspecified; Z68.32 Body mass index [BMI] 32.0-32.9, adult; Z90.49 Acquired absence of other specified parts of digestive tract
CPT/HCPCS: 36415; 73564; 80048; 85025; 85380; 85610; 85730; 99283; A9270

== ENCOUNTER 2023-12-13 09:45 | Emergency (ER) | payer BC, MEDICAID, SELFPAY ==
--- NOTE | ~2023-12-13 | CT_ITS ---
EXAMINATION: CT soft tissue neck w con DATE: 12/13/2023 12:13 INDICATION: Bilateral tonsillar swelling. TECHNIQUE: Computed tomography (CT) of the neck was performed with 75 mL Omnipaque-350 intravenous co ntrast. Automated exposure control and iterative reconstruction technique were employed. The dose-bayron gth product was 430.13 mGy-cm. COMPARISON: None FINDINGS: There are nodules in the thyroid measuring up to 6 mm, likely not clinically significant. T he palatine tonsils are enlarged. No abscess. There is mild bilateral high internal jugular chain lym phadenopathy and mild right mid internal jugular chain lymphadenopathy, likely reactive. The cervical carotid arteries are normal. The paranasal sinuses are clear. The mastoid air cells are normal. Ther e is kyphosis of cervical spine. IMPRESSION: 1. Enlarged palatine tonsils, consistent with inflammation. No abscess. 2. Mild bilateral cervical lymphadenopathy, likely reactive. Reviewed, dictated and finalized at location A.
[2023-12-13 09:58] VITALS: BP 106/67; PULSE 94; RESP 16; TEMP 36.6; O2SAT 100
[2023-12-13 10:32] LABS: Strep Group A RT-PCR DETECTED (Negative)
[2023-12-13 10:48] LABS: Influenza A QL RT-PCR Negative (Negative); Influenza B QL RT-PCR Negative (Negative); RSV RNA, RT-PCR Negative (Negative); SARS-CoV-2 RNA PCR Negative (Negative)
[2023-12-13] MEDS: SODIUM CHLORIDE 0.9% IV 1,000 ML 999 ML IV CONT (11:43)
--- NOTE | 2023-12-13 11:43 | ED.URI ---
HPI - URI/Sore Throat General Chief Complaint: Upper Respiratory Infection Stated Complaint: sore throat, cough Time Seen by Provider: 12/13/23 10:45 Source: patient Mode of arrival: ambulatory Limitations: no limitations History of Present Illness HPI Narrative: Patient is a 28-year-old female who presents the ED with report of sore throat. Patient reports she 1st developed a sore throat yesterday. She has been around her grandmother recently who had a sinus infection. She complains of painful swallowing, pain radiating to her ears and neck, chills/diaphoresis. Denies known fevers. Denies difficulty swallowing, difficulty breathing, cough, nausea, vomiting. Related Data Allergies Allergy/AdvReac Type Severity Reaction Status Date / Time baclofen AdvReac Chills Verified 12/13/23 10:00 meloxicam AdvReac Chills Verified 12/13/23 10:00 Review of Systems Review of Systems: CONSTITUTIONAL: See HPI. ENT: See HPI. CARDIOVASCULAR: Denies chest pain. RESPIRATORY: Denies cough or dyspnea. GASTROINTESTINAL: Denies abdominal pain, nausea, vomiting, or diarrhea. All systems reviewed & are unremarkable except as noted in HPI and below PMFSH Past Medical History Medical History Obesity Surgical History Surgical History History of cholecystectomy 03/13/21 Previous section Family History Family History Mother Diabetes mellitus Social History Social History Smoking status: Never smoker Second hand tobacco smoke exposure: No Alcohol intake: never Substance use: never Living arrangements: with family Spiritual care concerns: No Exam Narrative: GENERAL: Ill appearing, obese with BMI of 32.0, in mild acute distress d/t pain. HEAD: Normocephalic, atraumatic. ENT: Bilateral tonsillar hypertrophy with diffuse exudates, tonsils touching each other and uvula, R>L, with some protrusion of soft palate on right. Mild uvular deviation to left. Airway is patent. No stridor or distress. Mild hoarse quality to voice. Patient is maintaining secretions. TMs are clear bilaterally. No evidence of AOE/AOM. RESPIRATORY: Airway patent, respirations nonlabored. Clear to auscultation bilaterally, no rales, rhonchi, wheezing. CARDIOVASCULAR: Regular rate and rhythm MUSCULOSKELETAL: Moves all extremities. No gross deformities. SKIN: Warm, dry, normal color. NEURO: A&O X3. Speech clear. Cranial nerves II-XII grossly intact. Steady gait. No ataxic movements. PSYCHIATRIC: Appropriate mood and affect. Normal interaction. Course Vital Signs Vital signs: Vital Signs Temperature 97.8 F 12/13/23 09:58 Pulse Rate 94 12/13/23 09:58 Respiratory Rate 16 12/13/23 09:58 Blood Pressure 106/67 12/13/23 09:58 Pulse Oximetry 100 12/13/23 09:58 Oxygen Delivery Room Air 12/13/23 09:58 Temperature 97.8 F 12/13/23 09:58 Pulse Rate 96 12/13/23 13:27 Respiratory Rate 20 12/13/23 13:27 Blood Pressure 106/70 12/13/23 13:27 Pulse Oximetry 97 12/13/23 13:27 Oxygen Delivery Room Air 12/13/23 11:47 MDM - URI/Sore Throat MDM Narrative Medical decision making narrative: Strep testing positive. COVID, influenza, RSV negative. 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 Will obtain labs and imaging to further evaluate. Given Unasyn and Decadron in the ED. CBC with white blood cell count of 15.5. BMP unremarkable. CT soft tissue neck obtained and showing bilateral tonsillitis, no evidence of abscess. Patient will be discharged on Augmentin and a Medrol Dosepak. She was given strict return precautions should symptoms worsen. She agrees with plan and feels comfortable discharge home. Discharged in stable condition. Vital signs stable at time of D/C.
[2023-12-13] MEDS: AMPICILLIN SULB 3 GM/NS 100 ML 3 GM/100 ML VIAL IVPB (11:44)
[2023-12-13] MEDS: dexAMETHasone SOD PHOS INJ 10 MG/ML 1 ML VIAL IV PUSH (11:44)
[2023-12-13 11:45] LABS: Basophils Absolute Auto 0.1 K/mm3 (0.0-0.1); Basophils Percent Auto 0.3 % (0.2-1.2); Eosinophils Percent Auto 0.3 % (0-4.4); Hematocrit 41.7 % (37.0-47.0); Hemoglobin 13.6 g/dL (12.0-15.0); Immature Granulocyte Absolute 0.06 K/mm3 (0.00-0.031); Immature Granulocyte Percent A 0.4 % (0-0.5); Lymphocytes Absolute Auto 1.77 K/mm3 (0.9-3.2); Lymphocytes Percent Auto 11.4 % (18.3-44.2); Mean Corpuscular HGB Conc 32.6 g/dl (32-36); Mean Corpuscular Hemoglobin 26.8 pg (26-34); Mean Corpuscular Volume 82.1 fl (80-100); Mean Platelet Volume 9.3 fl (7.4-10.4); Monocytes Absolute Auto 0.7 K/mm3 (0.1-0.6); Monocytes Percent Auto 4.4 % (2.6-8.5); Neutrophils Absolute Auto 12.9 K/mm3 (1.3-6.7); Neutrophils Percent Auto 83.2 % (45.5-73.1); Platelet Count Result 327 k/mm3 (150-375); Red Blood Count 5.08 M/mm3 (4.2-5.4); Red Cell Distribution Width 13.6 % (11.5-14.5); White Blood Count 15.5 K/mm3 (4.5-10.0)
[2023-12-13 11:56] LABS: Anion Gap 12 mmol/L (4-12); Blood Urea Nitrogen 9 mg/dL (7-17); Calcium 8.8 mg/dL (8.4-10.2); Carbon Dioxide 24 mmol/L (22-30); Chloride 100 mmol/L (98-107); Estimated CRCL calculation 155 ml/min; Estimated Glomerular Filt Rate > 60; Glucose 98 mg/dL (65-110); Potassium 3.9 mmol/L (3.4-5.0); Sodium 136 mmol/L (137-145)
[2023-12-13 11:59] LABS: Estimated CRCL calculation 132 ml/min; Estimated Glomerular Filt Rate > 60
[2023-12-13 13:27] VITALS: BP 106/70; PULSE 96; RESP 20; O2SAT 97
== END 2023-12-13 13:28 | disposition home or self-care (01) ==
PROVIDERS: Emergency Medicine; Emergency Provider Physician Assistant; PCP Family Medicine
DX: J02.0 Streptococcal pharyngitis (principal); Z20.822 Contact with and (suspected) exposure to COVID-19
CPT/HCPCS: 36415; 70491; 80048; 85025; 87637; 87651; 96365; 96375; 99284; J0295; J1100; J7030; Q9967

== ENCOUNTER 2024-04-24 18:56 | Emergency (ER) | payer BC, MEDICAID, SELFPAY ==
--- NOTE | ~2024-04-24 | XR_ITS ---
EXAM: XR knee RT min 4V DATE: 04/24/2024 22:13 HISTORY: pain, swelling. NO INJ . COMPARISON: 09/11/2023. FINDINGS: Normal mineralization. No fracture or dislocation. No lytic or blastic lesion. Mild osteoa rthritis. No erosion or periosteal change. Soft tissues within normal limits. IMPRESSION: No acute osseous finding in the right knee. Reviewed, dictated and finalized at location K. OFFICE AGENT
--- NOTE | ~2024-04-24 | US_ITS ---
EXAMINATION: US venous doppler LE RT DATE: 04/24/2024 22:09 INDICATION: pain, swelling . TECHNIQUE: Grayscale images without and with compression and Doppler images of the right lower extrem ity veins were obtained. COMPARISON: None FINDINGS: The right common femoral vein, profunda (deep) femoral vein, femoral vein, popliteal vein, peroneal v ein, posterior tibial veins, gastrocnemius vein, and greater saphenous vein are patent. IMPRESSION: Patent right lower extremity veins. No evidence of deep venous thrombosis. Reviewed, dictated and finalized at location K. 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
[2024-04-24 19:45] VITALS: BP 128/67; PULSE 66; RESP 15; TEMP 36.5; O2SAT 99
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
[2024-04-24 22:41] VITALS: BP 105/61; PULSE 82; RESP 18; O2SAT 97
== END 2024-04-24 23:02 | disposition home or self-care (01) ==
PROVIDERS: Emergency Provider Physician Assistant; PCP Family Medicine
DX: M79.661 Pain in right lower leg (principal); E66.9 Obesity, unspecified; Z68.35 Body mass index [BMI] 35.0-35.9, adult
CPT/HCPCS: 73564; 93971; 99284

== ENCOUNTER 2024-06-10 14:05 | Emergency (ER) | payer BC, MEDICAID, SELFPAY ==
--- NOTE | ~2024-06-10 | XR_ITS ---
EXAM: XR knee RT min 4V DATE: 06/10/2024 15:23 HISTORY: r knee pain/swelling after line dancing last night . COMPARISON: 04/24/2024. FINDINGS: Normal mineralization. No fracture or dislocation. No lytic or blastic lesion. Joint space s are maintained. No erosion or periosteal change. Soft tissues within normal limits. IMPRESSION: No acute osseous finding in the right knee. Reviewed, dictated and finalized at location K. VIORAL HEALTH THERAPIST
--- NOTE | ~2024-06-10 | US_ITS ---
EXAMINATION: US venous doppler LE RT DATE: 06/10/2024 15:48 INDICATION: calf pain and swelling . TECHNIQUE: Grayscale images without and with compression and Doppler images of the right lower extrem ity veins were obtained. COMPARISON: 04/24/2024 FINDINGS: The right common femoral vein, profunda (deep) femoral vein, femoral vein, popliteal vein, peroneal v ein, posterior tibial veins, gastrocnemius vein, and greater saphenous vein are patent. IMPRESSION: Patent right lower extremity veins. No evidence of deep venous thrombosis. Reviewed, dictated and finalized at location K. CULTURAL LENDER
--- OUTSIDE RECORDS SUMMARY | 2024-06-10 14:07 | XMS_ITS | Referral Summary ---
Author Organization [facility] Address [address] [place] [address] Care Team Providers Care Deputy County Attorney Name Role Phone Jimenez Townsend MD Primary Care Provider [phone] Encounters Date Type Department Care Team Description 04/24/2024 Orders Only [facility] Health Information Management [address] [place] [address] Jimenez Townsend MD 03/28/2024 2:30 PM FLOWER MAKER Telemedicine [facility] Obstetrical Gynecology [address] [place] [phone] Laurence Gaspar CNM Encounter for screening for maternal depression (Primary Dx) from Last 3 Months Allergies Active Allergy Reactions Criticality Noted Date Comments Baclofen Swelling Medium 09/08/2020 Meloxicam Fever Medium 09/19/2019 Medications sertraline (Zoloft) 50 mg tablet Take 3 tablets (150 mg total) by mouth daily 270 tablet 3 02/16/2024 5 Active dextroamphetami ne-amphetamine XR (ADDERALL XR) 15 mg 24 hr capsule Take 1 capsule (15 mg total) by mouth every morning 30 capsule 02/17/2024 Active Active Problems Problem Noted Date Diagnosed Date History of 06/03/2023 Overview (06/03/2023): Pedro Strickland is a 27 y.o. female at 39w0d who is dated by L=2 and is being admitted for a scheduled repeat due to history of x2 and c/f skeletal dysplasia . Admit to L&D: Consents signed and placed in chart. Labs: CBC and T&S pending. section after labs return. FWB: Continuous monitoring. Reactive NST. ID: 3rd trimester HIV (>28 wga) negative on 05/11/23. GBS positive on 05/11/23, Ancef for delivery. RPR on admission: pending. 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 Membrane Status: intact. Indications for UDS: none. Verbal consent obtained for UDS: Not indicated. MOF: Plans to breastfeed. Urine drug screen not indicated. Patient informed of results: N/A. MOC: Desires permanent sterilization, consents mature and signed on 04/13/23 (visualized in medical record). Pain management: CSE to be placed in the OR. Post DVT prophylaxis: The patient has the following MAJOR risk factors none and the following MINOR risk factors BMI 30-39, delivery, and parity >/=3. enoxaparin 40 mg daily will be ordered for VTE prophylaxis c/b: #C/f skeletal dysplasia: right femur angulation with mild bowing of the left femur, complete skeletal survey otherwise within normal limit. Declined amniocentesis and genetic screening. #GDMA: unclear if type 1 or 2, unable to take BG log due to social stressors. Glucose checks prior to . #Hx CS x2: in G1 second stage arrest, chorioamnionitis, elective repeat for G2, no mention of adhesions in op note. #Depression: current regimen Latuda, declined psych. Per primary OB, patient has very little social support and unstable housing. For social work consult PP. #HSV: on valtrex suppression #Chlamydia: Positive 11/24/22, s/p negative LISANDRO 12/22/22 and 03/22 Status post delivery 06/03/2023 Overview (06/07/2023): # ID: Afebrile. No signs/symptoms of infection. COVID-19 test not indicated . # Heme: EBL 700 mL. Hemodynamically stable. Hgb 11.3> 11.9 POD#1 #contact dermatitis: loacate on back from tape. Hydrocortisone cream given # CV/Pulm: Vital signs stable, within normal limits. # GI/: Tolerating PO. Voiding spontaneously. # GDMA: fasting glucose POD#1 109. Will need PP glucose follow up. # Pain: Largely Controlled with above regimen. # Depression/Bipolar: currently on Latuda prescribed by OB, SW consulted. Zoloft added to regimen. # Post DVT prophylaxis: The patient has the following MAJOR risk factors none and the following MINOR risk factors BMI 30-39, delivery, and parity >/=3. enoxaparin 40 mg daily ordered for VTE prophylaxis. # MOC: s/p BTL # MOF: # Disposition: Desires discharge home today. F/u to be scheduled with primary OB. Exposure to influenza 06/02/2023 Overview (06/02/2023): Son diagnosed with Influenza B on 06/02/23 Request for sterilization 04/14/2023 Overview (04/14/2023): Permanent Surgical Sterilization counseling We reviewed the risks, benefits, and alternatives to permanent surgical sterilization. We reviewed alternatives to sterilization include all forms of contraception, especially male sterilization and long acting reversible contraception (LARC) methods which are at least as effective as female permanent sterilization and in some cases more effective. Vasectomy is safer, more effective, and less expensive than female sterilization. She was counseled about its permanent nature and the risk of regret of surgical sterilization,in particular when performed on patients under 30 years of age. We discussed potential for surgical complications which occur in 0.9-1.6 per 100 cases, which may include bowel or bladder injury, and blood transfusion, but that deaths from sterilization are rare and are most frequently related to risks of general anesthesia from hypoventilation or cardiopulmonary arrest. However, we discussed that given she plans to have the sterilization at the time of her CS and that this is typically under regional anesthesia that the risks of this are lower. We discussed that although failure of sterilization is less than 1%, one third of post procedure pregnancies are ectopic in location and that if she had concern for in the future she should seek evaluation by Claim Attorney to rule out an ectopic . Finally, we discussed that patients may experience changes in menstrual pattern attributable to advancing age and or discontinuation of hormonal contraception, bu that tubal ligation does not change menstrual pattern or loss of ovarian function. We reviewed techniques for laparoscopic sterilization with complete occlusion of a segment of the fallopian tube using mechanical devices such as the silicone band, silicone lined titanium clips, bipolar electrocoagulation, or by partial or complete tubal excision. We reviewed that data from observational studies suggest ovarian cancer risk reduction following partial or total salpingectomy in both women with average cancer risks and in those with BRCA 1 and BRCA 2 mutations and that salpingectomy also reduces the risk of pelvic inflammatory disease. After this discussion, she expressed understanding and desired to proceed with sterilization and prefers salpingectomy, but understands that the actual sterilization procedure will be determined at the time of surgery based on her anatomy and clinical factors. She was consented in the office (media tab 04/13/23). She was given a copy of the signed form as well. Diet controlled gestational diabetes mellitus (GDM) in third trimester 02/28/2023 Overview (05/11/2023): Diagnosis - 1-hour OGTT: 148mg/dL - 3-hour OGTT: (3/4 elevated) S/p counseling Not checking sugars. Current regimen: None Recommendations: [] Serial growth scans q4 weeks [] testing (if A2GDM) twice weekly starting at 32 weeks [] Delivery at 39 0/7 - 39 6/7 weeks gestation [] 2 hour/75g OGTT at visit Assessment & Plan (05/11/2023 2:59 PM FLOWER MAKER): Not checking sugars or keeping log and reports she will not be able to due to social stressors. Declines social work. Assessment & Plan (04/14/2023 10:36 PM FLOWER MAKER): No BG logs to inform care plan. Fingerstick in clinic with BG 108, thus will defer initiation of medications at this time. Encouraged pt to take fasting BG a few times/week, and if persistently elevated will consider initiation of metformin. Counseled on the importance of BG control. Adult ADHD 09/17/2022 Degenerative disc disease, lumbar 09/17/2022 Abnormal uterine bleeding (AUB) 05/13/2021 Chronic right-sided low back pain without sciati ca 11/08/2019 MRSA cellulitis of right foot 09/18/2019 Acute neutrophilia 08/22/2019 Anxiety and depression 08/13/2016 Overview (05/11/2023): History Per primary, has very little support. 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 Her male partners are not supportive. Has some hypomania symptoms previously. Recommendation - On Latuda. Was also on zoloft 50mg but self discontinued. - referred to psych who gave patient info to contact them- patient has declined for now - EPDS Qvisit Assessment & Plan (05/11/2023 2:58 PM FLOWER MAKER): EPDS 19 today, slight improvement from prior. No SI/HI. Tearful and says mood is not good. She is aware that the severity of her symptoms warrant psychiatry involvement however she declines. Self discontinued zoloft as it was not helping but is taking Latuda. Precautions reviewed. Assessment & Plan (04/14/2023 10:58 PM FLOWER MAKER): We reviewed ED precautions given her symptoms. She denies SI/HI today. EPDS 21, answered 0 to Q#10. We reviewed the importance of following with psychiatry given her symptoms. We have sent a message to see if she can be set up with our psychiatrist. Lastly, we reviewed that Latuda is likely safe in . Based on the data available, there is not expected to be an increased risk of malformations and while there is a risk of complications related to dopamine blockade (extrapyramidal signs, sedation, breathing and feeding difficulties, agitation, tremor, and abnormally increased or decreased muscle tone), these typically resolve spontaneously or require additional hospital care. Given her stressors and symptoms at this GA, we discussed that we think the benefits of this medication outweigh the risk and should be continued in conjunction with psych. We reviewed the risk of mental health decompensation in the time around delivery and , and emphasized the importance now of increasing her support. Major depressive disorder, single episode, unspe cified 2016 Genital herpes 04/15/2016 Overview (05/11/2023): - for suppression w/ valtrex 500mg bid at 36 weeks (rx routed and patient counseled) - Asymptomatic at present Resolved Problems Problem Noted Date Diagnosed Date Resolved Date Supervision of high-risk pre gnancy, third trimester 04/13/2023 07/21/2023 Gestational diabetes mellitu s (GDM) in second trimester 03/04/2023 05/11/2023 History of section complicating 02/21/2023 06/21/2023 Overview (05/11/2023): History: - G1: primary CS for second stage arrest, chorioamnionitis - G2: planned repeat CS (Op note in Epic, no mention of adhesions) Recommendations: - planning repeat CS Abnormal ultrasound - right femur bowing 02/21/2023 06/21/2023 Overview (05/11/2023): Skeletal survey 03/16/2023 confirmed the right femur angulation with mild bowing of the left femur. Complete skeletal survey undertaken today. Outside of the right femur, all other long bones are measuring within normal limits and are well calcified. The scapulae on either side are at the mean for gestational age. The clavicle on either side measure normal. The thoracic circumference is at the 25%. All individual measurements for lethality were normal without concerns today including: FL/AC is 0.23; TC/AC is 0.81; CCTR 50%; TC 25%. The chest appeared normal in sagittal and coronal views. Plan [x] Genetic screening - not performed [x] Amniocentesis - declined [x] Pediatric orthopedic consultation [] Serial growth US Chlamydia infection affectin g in first trimester 02/21/2023 06/21/2023 Overview (05/11/2023): Positive 11/24/22. LISANDRO negative 12/22/22 Will send Urine GC/CT today Maternal obesity affecting p regnancy, antepartum 02/21/2023 05/11/2023 Overview (04/14/2023): BMI 33 GDMA diagnosed S/p counseling Plan [x] Specialized anatomic survey at 20 weeks [] Consider growth ultrasounds every 4 weeks at 28 weeks [] 3rd trimester anesthesia consultation if BMI >/=50 [] Weekly testing at 34 weeks (BMI >/=40) and 37 weeks (BMI 35.0-39.9) Supervision of high-risk pre gnancy, second trimester 02/21/2023 06/21/2023 Overview (05/12/2023): [x] Co-management vs. [] Full M Care; [] Red Team [x] Blue Team Referring Provider: Marquez Nichols [phone] [] or Medicare Insurance [x] Dating Criteria: US 11/24/22 with ALCIRA 06/10/23 [x] Labs: Rh [B+], Ab [negative], Rubella [immune], HIV [non-reactive], HepBSAg [non-reactive], RPR [non-reactive], Hep C [non-reactive], Varicella [not done], GC/CT [11/24/22: GC negative/CT positive. LISANDRO 12/22/22 GC negative/CT negative] [x] Genetic Screening: undecided [x] CBC/Hgb 12.2/38.2/plt 461 [x] Early 1hr GTT 02/09/23: [148] due for 3hr GTT [x] UCx: 11/03/22: <100,000 colonies/mL GBS [x] Pap: 11/24/22: NILM [x] LD ASA (if indicated) starting at 12 weeks: n/a [x] EPDS [10 ]; [facility] referral (if indicated) offered, declined 2nd Tri Labs: [x] Anatomy ultrasound: Ultrasound 02/28/2023: 25w3d EFW 714g (13%), variable presentation, normal amniotic, placenta posterior. Bowed right femur per US reading team. No other abnormalities or findings of skeletal dysplasia per report. [x] CBC/1hr gtt at 24-28wks: 11.6, 1hr elevated and elevated 3hr, see GDM problem [] Flu Shot (Jan-Apr): patient refused [x] Tdap (27-36wks):Declined, counseled. [x] Rhogam at 28 wks (if Rh neg): B+, N/A 3rd Tri Labs: [x] CBC: 11.4/36.4/257K HIV: NR RPR: NR [x] GBS:collected 05/11- positive [] GC/CT (if indicated): Urine GC/CT ordered [] testing: Counseling [x] MOD: RCS + BTL 06/03 @ 1130 [x] Place of delivery: [facility] [x] MOC: Desires BTL, papers signed 04/13 [x] Method of feeding: breast [] Rotational Moulding Operator: [x] PP Depression Discussed: Declines further intervention at present. Consider psychiatry consult Assessment & Plan (04/14/2023 10:45 PM FLOWER MAKER): Care per Dr. Everett and Magdalena. Reviewed recommendation for RSV, flu, tdap, and COVID vaccines. Reviewed options for contraception and desires sterilization (see separate problem). UTI (urinary tract infection) 02/14/2023 06/24/2023 Overview (02/28/2023): - s/p UTI on 02/11 w/ staph saprophyticus. Treated, for LISANDRO w/ pirmary S/P repeat low transverse 01/26/2021 02/21/2023 Overview (01/28/2021): 01/27/21 POD #1 (AB) Post S/p Elective repeat LTCS at 39w2d VSS EBL 280 mL. Hgb 11.2 on admission > 10.4 PPD#1, No signs/symptoms of acute blood loss anemia. Tolerating PO. Voiding spontaneously. Pain: Controlled with PO pain medications incision clean, dry and intact Bottle Feeding Baby doing well in the room with mom Disposition: Continue routine care 01/28/21 POD #2 (AB) Post S/p Elective repeat LTCS at 39w2d VSS No signs/symptoms of acute blood loss anemia. Tolerating PO. Voiding spontaneously. Pain: Controlled with PO pain medications incision clean, dry and intact Bottle Feeding Baby doing well in the room with mom Disposition: Discharge home Delivery with history of 11/21/2020 02/23/2021 Overview (11/21/2020): Added automatically from request for surgery [id number] History of 07/16/2020 023 Supervision of other normal , antepartum 07/15/2020 02/23/2021 Overview (07/15/2020): First Trimester: [x] Labs [] Genetic Screeninnd Trimester: [] Anatomy ultrasound 3rd Trimester: [] CBC, HIV, syphilis screen [] 1hr GCT (26-28wks): [] Tdap (27-36wks) [] Rhogam (if Rh neg): [] GBS Right leg pain 09/19/2019 03/19/2020 Arrest of descent, delivered , current hospitalization 09/18/2019 03/19/2020 Cellulitis of multiple sites of head and neck 09/18/19 20 03/19/2020 Chorioamnionitis, delivered, current hospitalization 09/18/2019 03/19/2020 Lymphangitis 09/18/2019 02/23/2021 Normal labor 09/18/2019 03/19/2020 hemorrhage, deliv ered, current hospitalization 09/18/2019 06/18/2020 Prolonged second stage of labor 09/18/2019 03/19/2020 Pyelonephritis of right kidney 08/22/2019 02/23/2021 Acute bilateral low back brenda n without sciatica 08/08/2019 02/23/2021 Surveillance of implantable subdermal contraceptive 12/07/2018 03/19/2020 Overview (12/07/2018): Nexplanon placed 02/2017. Immunizations Name Administration Dates Next Due Influenza, Unspecified 06/23/2023(Deferr ed: Patient Refused),03/26/2022(Deferred: Patient Refused),02/13/2022(Deferred: Patient Refused),08/03/2021(Deferred: Patient Refused) MMR 06/06/2023(Deferred: No longer needed),06/05/2023(Deferred: No longer needed) Meningococcal MCV4P (Menactra) 12/30/2015 Varicella 06/06/2023(Deferred: No longer needed),06/05/2023(Deferred: No longer needed) Social History Tobacco Use Types Packs/Day Years Used Date Smoking Tobacco: Never Smokeless Tobacco: Never Tobacco Cessation:Counseling Given: Not Answered Alcohol Use Standard Drinks/Week Comments Not Currently 0 (1 standard drink = 0.6 oz pur e alcohol) [facility] Utilities Answer Date Recorded In the past 12 months has th e [employer], gas, oil, or water [employer] threatened to shut off services in your home? No 06/05/2023 Social Connection and Isolation Panel [NHANES] A nswer Date Recorded In a typical week, how many times do you talk on the phone with family, friends, or neighbors? Three times a week 06/05/2023 How often do you get togethe r with friends or relatives? Three times a week 06/05/2023 How often do you attend chur ch or pentecostal services? Never 06/05/2023 Do you belong to any clubs o r organizations such as temple groups, unions, fraternal or athletic groups, or school groups? No 06/05/2023 How often do you attend meet ings of the clubs or organizations you belong to? Never 06/05/2023 Are you , , di vorced, , never , or living with a partner? Never 06/05/2023 AUDIT-C Answer Date Recorded Q1: How often do you have a drink containing alcohol? Never 09/17/2022 Q2: How many drinks containi ng alcohol do you have on a typical day when you are drinking? Patient does not drink Frequency of Binge Drinking Not on file 09/2022 Overall Financial Resource Strain (CARDIA) Answe r Date Recorded How hard is it for you to pa y for the very basics like food, housing, medical care, and heating? Not very hard 06/05/2023 PHQ-2 Answer Date Recorded PHQ-2 Total Score (If total score is 3 or more points, staff should administer the PHQ-9) 4 06/24/2023 Hunger Vital Sign Answer Date Recorded Within the past 12 months, y ou worried that your food would run out before you got the money to buy more. Never true 06/05/19 24 Within the past 12 months, t he food you bought just didn't last and you didn't have money to get more. Never true 06/05/2023 PRAPARE - Transportation Answer Date Re corded In the past 12 months, has l ack of transportation kept you from medical appointments or from getting medications? No 05/17 In the past 12 months, has l ack of transportation kept you from meetings, work, or from getting things needed for daily living? No 06/05/2023 Housing Stability Vital Sign Answer Frank e Recorded In the last 12 months, was t here a time when you were not able to pay the mortgage or rent on time? No 06/05/2023 In the last 12 months, how many places have you lived? 2 06/05/2023 In the last 12 months, was t here a time when you did not have a steady place to sleep or slept in a fci (including now)? No 06/05/2023 [place] Depression Scale Answer Date Recorded [place] Depression Scale Total 12 03/28/2024 The thought of harming myself has occurred to me . Never 03/28/2024 Personal Safety Answer Date Recorded Have you ever been in or are you currently in a harmful physical or emotional relationship or is someone making you feel afraid or unsafe? Denies 10/03/2023 Comments No Sex and Gender Information Value Date Recorded Sex Assigned at Not on file Legal Sex Female 12:29 AM FLOWER MAKER Gender Identity Not on file Sexual Orientation Not on file Last Filed Vital Signs Vital Sign Reading Time Taken Comments Blood Pressure 114/62 02/16/2024 11:22 AM CDT Pulse 70 10/03/2023 12:56 PM CDT Temperature 36.5 ??C (97.7 ??F) 10/03/2023 11:40 AM C DT Respiratory Rate 16 10/03/2023 12:56 PM CDT Oxygen Saturation 98% 10/03/2023 12:56 PM CDT Inhaled Oxygen Concentration - - Weight 91.4 kg (201 lb 6.4 oz) 02/16/2024 11:22 AM CDT Height 165.1 cm (5' 5 ) 02/16/2024 11:22 AM CDT Body Mass Index 33.51 02/16/2024 11:22 AM CDT Plan of Treatment Not on file Procedures Procedure Name Priority Date/Time Associated Diagnosis Comments SCAN - RADIOLOGY/IMAGING 04/24/2024 EGFR STAT 05/15/2023 6:06 PM FLOWER MAKER PAP WITH REFLEX TO HIGH RISK HPV Routine 11/24/2022 9:15 AM CDT Screening for cervical cancer HEPATITIS C ANTIBODY Routine 11/03/2022 3:17 PM CDT Positive test HEMOGLOBIN A1C Routine 11/03/2022 3:17 PM CDT Positive test from Last 3 Months or Most Recently Relevant to Health Maintenance Results * SCAN - RADIOLOGY/IMAGING (04/24/2024) Anatomical Region Laterality Modality Other Jimenez Townsend MD Edited Result - Final * eGFR (05/15/2023 6:06 PM FLOWER MAKER) eGFR 141 mL/min/1. 73 m2 [facility] Comment: Interpretive Data Reference Interval Normal ?>/= 90 mL/min/1.73m2 Mildly decreased* ? 60 - 89 mL/min/1.73m2 Mildly to moderately decreased ?45 - 59 mL/min/1.73m2 Moderately to severely decreased ??30 - 44 mL/min/1.73m2 Severely decreased ?15 - 29 mL/min/1.73m2 Kidney Failure ?< 15 ??mL/min/1.73m2 *Relative to young adult level Estimated glomerular filtration rate is determined by the 2020 CKD-EPI equation recommended by the National Kidney Foundation (A Unifying Approach to GFR Estimation: Recommendations of the NKF-ASK Task Force on Reassessing the Inclusion of Race in Diagnosing Kidney Disease, ANNAMARIESErica 2020). The CKD-EPI equation should not be used for patients with unstable renal function and has not been validated in children and those over 70. Current interpretive data was last reviewed 2021. Testing performed by: [facility], [address] [place] [address]., [id number] Blood 05/15/2023 6:06 PM FLOWER MAKER 05/15/2023 6:09 PM FLOWER MAKER us Nasreen Ruiz MD LAB BLOOD ORDERABLES Fin al Result [facility] [id number] [facility] Department [place] [address] * Pap with reflex to High Risk HPV and Genotyping (Cytology Component) (11/24/2022 9:15 AM CDT) Thin prep (Pap test) 11/24/2022 9:15 AM CDT 11/29/2022 9:15 AM CDT Narrative PATHOLOGY [facility] - 12/02/2022 9:50 AM CDT [facility] Department of Pathology [address] [place] [id number] Final Report Note to Patients: This report may contain a detailed description of human tissue sent by a health care provider to the laboratory for pathologic evaluation. The content of this report is essential for diagnosis and may provide important critical findings. This information may be unfamiliar to patients to review without a medical professional present. It is advised that the patient review this report in the presence of a health care provider who can answer questions and explain the details. Patient Name: ??PEDRO STRICKLAND Address: ??[address] [place] [address], ?? [place], [place] [address] Gender: ??F : ??1995 (Age: 27) Service: ?? Location: ?? Hospital #: ??[id number] Patient Type: ??[facility] SPECIMEN Taken: ??11/24/2022 Received: ??11/29/2022 Accessioned:: ??11/30/2022 Reported: ??12/02/2022 Physician(s): Dr. Marquez Nichols M.D. [facility] Diagnosis: SOURCE OF SPECIMEN ? Imaged Thinprep Pap Test w/ Reflex HPV - Vessel Liner Cytologic Material: STATEMENT OF ADEQUACY ?- Satisfactory for evaluation; endocervical/transformation zone component present ? GENERAL CATEGORIZATION: ?- Negative for intraepithelial lesion or malignancy ? INTERPRETATION: ?- Fungal organisms present, morphologically consistent with erickson species ?- Numerous inflammatory cells present ? LUZ Ramos(ASCP) Report Electronically Reviewed and Signed Out By ??LUZ Ramos(ASCP) ??12/02/2022 09:50:36Specimen(s) Received: A: Imaged Thinprep Pap Test w/ Reflex HPV - Vessel Liner Cytologic Material Clinical History: Last Menstrual Period: 10/02/2022 The Pap test is a screening test used to aid in the detection of cervical cancer and its precursors. ??It should not be the sole means by which malignant and premalignant lesions are diagnosed. ??Both false negative and false positive results may occur. ?? It also has poor sensitivity for the detection of endometrial lesions and should not be used to evaluate suspected endometrial abnormalities. ??For these reasons it is most important to obtain Pap tests at regular intervals. The performance characteristics of some immunohistochemical stains, fluorescence in-situ hybridization tests and immunophenotyping by flow cytometry cited in this report (if any) were determined by the Surgical Pathology Department at [facility] as part of an ongoing research associate quality control qc program and in compliance with federally mandated regulations drawn from the Clinical Laboratory Improvement Act of 1988 (CLIA '88). ??Some of these tests rely on the use of analyte specific reagents and are subject to specific labeling requirements by the US Food and Drug Administration. ??Such diagnostic tests may only be performed in a facility that is certified by the Department of Health and Human Services as a high complexity laboratory under CLIA '88. The FDA has determined that such clearance or approval is not necessary. ??This test is used for clinical purposes. ??It should not be regarded as investigational or for research. ??Nevertheless, federal rules concerning the medical use of analyte specific reagents require that the following disclaimer be attached to the report: This test was developed and its performance characteristics determined by the Surgical Pathology Department [facility]. ??It has not been cleared or approved by the U. S. Food and Drug Administration. Marquez Nichols MD LAB CYTOLOGY ORDERABLES Fi nal Result Performing Organization Address City/[facility]/ZIP Co de Phone Number PATHOLOGY [facility] * Hepatitis C antibody (11/03/2022 3:17 PM CDT) Hep C Ab Nonreactive Nonreactive [facility] [place] Comment: Interpretive Data Nonreactive: Antibodies to HCV not detected. Does NOT exclude the possibility of recent exposure to HCV. Equivocal: Equivocal for HCV antibodies. Supplemental molecular testing will be automatically performed to determine infection status in accordance with current CDC screening recommendations. ?? Reactive: Positive for HCV antibodies. ??This may represent current or past HCV infection. Supplemental molecular testing will be automatically performed to determine ??current infection status in accordance with current CDC screening recommendations. Interpretive data was last revised on 2019. Blood 11/03/2022 3:17 PM CDT 11/03/2022 4:50 PM CDT Marquez Nichols MD LAB MICROBIOLOGY - GENERAL ORDERABLES Final Result Performing Organization Address [facility] de Phone Number [facility] [address] [facility] Department [place] [address] * Hemoglobin A1c (11/03/2022 3:17 PM CDT) Hgb A1C 5.5 4.0 - 5.6 % [facility] Comment:Testing performed by : [facility], [address] [place] [address]., [id number] Estimated Average Glucose 111 mg/dL [facility] [place] Comment: The ADA recommends reporting an estimated Average Glucose (eAG) with all Hemoglobin A1c results using the equation derived from a study of 507 normal and diabetic adults. ??Minority populations were underrepresented and children were not included. ?? (Diabetes Care 31:2443-4997, 2008). ??The eAG is not equivalent to a fasting glucose. Testing performed by: [facility], [address] [place] [address], [place]., [address] Blood 11/03/2022 3:17 PM CDT 11/03/2022 4:30 PM CDT Marquez Nichols MD LAB BLOOD ORDERABLES Final Result JUNG [address] [facility] Department [place] [address] from Last 3 Months or Most Recently Relevant to Health Maintenance Insurance IDMA IDMA BLUE ACCESS [place] IDPA Advance Directives For more information, please contact: [phone] * Full Code (Latest Code Status on File) Date Activated Date Inactivated Comments 06/03/2023 5:09 PM 06/07/2023 9:32 PM * Full Code Date Activated Date Inactivated Comments 06/03/2023 11:42 AM 06/03/2023 5:09 PM Full CPR in case of cardiopulmonary arrest * Full Code Date Activated Date Inactivated Comments 01/26/2021 12:16 PM 01/28/2021 7:52 PM * Full Code Date Activated Date Inactivated Comments 01/26/2021 6:14 AM 01/26/2021 12:16 PM Full CPR in case of cardiopulmonary arrest * Full Code Date Activated Date Inactivated Comments 01/26/2021 6:14 AM 01/26/2021 6:14 AM Full CPR in case of cardiopulmonary arrest Care Teams Deputy County Attorney Relationship Specialty Start Date End Date Jimenez Townsend MD PCP - General 08/23/20
--- OUTSIDE RECORDS SUMMARY | 2024-06-10 14:07 | XMS_ITS | Encounter Summary ---
Author Organization [facility] Facility Care Team Providers Care Planimeter Operator Name Role Phone Jimenez Townsend MD Primary Care Provider [phone] Jimenez Townsend MD Primary Care Provider [phone] Encounter Details Date Type Department Care Team (Latest Contact Info) Description 11/07/2016 Orders Only [facility] CLINCONV ProviderSandra MD [address] [place] [address] Social History Tobacco Use Types Packs/Day Years Used Date Smoking Tobacco: Never Assessed Comments Unknown Sex and Gender Information Value Date Recorded Sex Assigned at Not on file Legal Sex Female 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 us Historical Provider Final Res ult documented in this encounter Visit Diagnoses Not on filedocumented in this encounter Additional Health Concerns Infection Onset Date Last Indicated Resolved Time COVID: Suspected 05/15/2023 05/15/2023 05/15/2023 6:50 PM WINDLACE MACHINE OPERATOR documented as of this encounter Care Teams Planimeter Operator Relationship Specialty Start Date End Date Jimenez Townsend MD PCP - General Family Medicine 08/07/18 08/22/20 Jimenez Townsend MD PCP - General 08/23/20 documented as of this encounter
--- OUTSIDE RECORDS SUMMARY | 2024-06-10 14:07 | XMS_ITS | Encounter Summary ---
Author Organization [facility] Facility Care Team Providers Care Finishing Frame Runner Name Role Phone Jimenez Townsend MD Primary Care Provider [phone] Jimenez Townsend MD Primary Care Provider [phone] Encounter Details Date Type Department Care Team (Latest Contact Info) Description 10/28/2016 Orders Only [facility] CLINCONV ProviderSandra MD [address] [place] [address] Social History Tobacco Use Types Packs/Day Years Used Date Smoking Tobacco: Never Assessed Comments Unknown Sex and Gender Information Value Date Recorded Sex Assigned at Not on file Legal Sex Female 12:29 AM PIN INSERTER Gender Identity Not on file Sexual Orientation Not on file documented as of this encounter Plan of Treatment Not on file documented as of this encounter Procedures Procedure Name Priority Date/Time Associated Diagnosis Comments SCAN - LABS 10/28/2016 12:00 AM CDT documented in this encounter Results * SCAN - LABS (10/28/2016 12:00 AM CDT) Narrative 10/28/2016 12:00 AM CDT Ordered by an unspecified provider. us Historical Provider Final Res ult documented in this encounter Visit Diagnoses Not on filedocumented in this encounter Additional Health Concerns Infection Onset Date Last Indicated Resolved Time COVID: Suspected 05/15/2023 05/15/2023 05/15/2023 6:50 PM PIN INSERTER documented as of this encounter Care Teams Finishing Frame Runner Relationship Specialty Start Date End Date Jimenez Townsend MD PCP - General Family Medicine 08/07/18 08/22/20 Jimenez Townsend MD PCP - General 08/23/20 documented as of this encounter
--- OUTSIDE RECORDS SUMMARY | 2024-06-10 14:07 | XMS_ITS | Encounter Summary ---
Author Organization [facility] Facility Care Team Providers Care Service Control Operator Name Role Phone Jimenez Townsend MD Primary Care Provider [phone] Jimenze Townsend MD Primary Care Provider [phone] Encounter Details Date Type Department Care Team (Latest Contact Info) Description 09/17/2016 Orders Only [facility] CLINCONV ProviderSandra MD [address] [place] [address] Social History Tobacco Use Types Packs/Day Years Used Date Smoking Tobacco: Never Assessed Comments Unknown Sex and Gender Information Value Date Recorded Sex Assigned at Not on file Legal 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 us Historical Provider Final Res ult documented in this encounter Visit Diagnoses Not on filedocumented in this encounter Additional Health Concerns Infection Onset Date Last Indicated Resolved Time COVID: Suspected 05/15/2023 05/15/2023 05/15/2023 6:50 PM HEAD START TEACHER documented as of this encounter Care Teams Service Control Operator Relationship Specialty Start Date End Date Jimenez Townsend MD PCP - General Family Medicine 08/07/18 08/22/20 Jimenez Townsend MD PCP - General 08/23/20 documented as of this encounter
--- OUTSIDE RECORDS SUMMARY | 2024-06-10 14:07 | XMS_ITS | Encounter Summary ---
Author Organization [facility] Facility Care Team Providers Care Crane Rigger Name Role Phone Jimenez Townsend MD Primary Care Provider [phone] Jimenez Townsend MD Primary Care Provider [phone] Encounter Details Date Type Department Care Team (Latest Contact Info) Description 09/15/2016 Orders Only [facility] CLINCONV ProviderSandra MD [address] [place] [address] Social History Tobacco Use Types Packs/Day Years Used Date Smoking Tobacco: Never Assessed Comments Unknown Sex and Gender Information Value Date Recorded Sex Assigned at Not on file Legal Sex Female 12:29 AM STAIN MAKER Gender Identity Not on file Sexual Orientation Not on file documented as of this encounter Plan of Treatment Not on file documented as of this encounter Procedures Procedure Name Priority Date/Time Associated Diagnosis Comments SCAN - LABS 09/15/2016 12:00 AM CDT documented in this encounter Results * SCAN - LABS (09/15/2016 12:00 AM CDT) Narrative 09/15/2016 12:00 AM CDT Ordered by an unspecified provider. us Historical Provider Final Res ult documented in this encounter Visit Diagnoses Not on filedocumented in this encounter Additional Health Concerns Infection Onset Date Last Indicated Resolved Time COVID: Suspected 05/15/2023 05/15/2023 05/15/2023 6:50 PM STAIN MAKER documented as of this encounter Care Teams Crane Rigger Relationship Specialty Start Date End Date Jimenez Townsend MD PCP - General Family Medicine 08/07/18 08/22/20 Jimenez Townsend MD PCP - General 08/23/20 documented as of this encounter
--- OUTSIDE RECORDS SUMMARY | 2024-06-10 14:07 | XMS_ITS | Clinical Summary ---
Author Organization [facility] Office Center Address [address] [place] [address] Care Team Providers Care Refrigerating Technician Name Role Phone Jimenez Townsend MD Primary Care Provider [phone] Allergies Active Allergy Reactions Criticality Noted Date [...] the future she should seek evaluation by Tractor Sweeper Driver to rule out an ectopic . Finally, [...] visit Assessment & Plan (05/11/2023 2:59 PM BENCH LATHE OPERATOR): Not checking sugars or keeping log and reports she will not be able to due to social stressors. Declines social work. Assessment & Plan (04/14/2023 10:36 PM BENCH LATHE OPERATOR): No BG logs to inform care plan. [...] has very little support. 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 No SI/HI. Tearful and says mood is not good. She is aware that the severity of her symptoms warrant psychiatry involvement however she declines. Self discontinued zoloft as it was not helping but is taking Latuda. Precautions reviewed. Assessment & Plan (04/14/2023 10:58 PM BENCH LATHE OPERATOR): We reviewed ED precautions given her symptoms. [...] Overview (05/12/2023): [x] Co-management vs. [] Full MFM Care; [] Red Team [x] Blue Team Referring Provider: Marquez Nichols [phone] [] or Medicare Insurance [x] Dating Criteria: [...] testing: Counseling [x] MOD: RCS + BTL 1/19 @ 1130 [x] Place of delivery: [facility] [x] MOC: Desires BTL, papers signed 04/13 [x] Method of feeding: breast [] [facility] Pricing Consultant: [x] PP Depression Discussed: Declines further intervention at present. Consider psychiatry consult Assessment & Plan (04/14/2023 10:45 PM BENCH LATHE OPERATOR): Care per Dr. Everett and Magadlena. Reviewed recommendation for RSV, flu, tdap, and [...] (11/21/2020): Added automatically from request for surgery [id number] History of 07/16/2020 023 Supervision of other [...] 12/07/2018 03/19/2020 Overview (12/07/2018): Nexplanon placed 02/2017. Encounters Date Type Department Care Team Description 04/24/2024 Orders Only [facility] Information Management [address] [place] [address] Jimenez Townsend MD 03/28/2024 2:30 PM BENCH LATHE OPERATOR Telemedicine [facility] Obstetrical Gynecology [address] [place] [phone] Laurence Gaspar CNM Encounter for screening for maternal depression (Primary Dx) from Last 3 Months Immunizations Name Administration Dates Next Due Influenza, Unspecified 06/23/2023(Deferr ed: Patient Refused),03/26/2022(Deferred: Patient Refused),02/13/2022(Deferred: Patient Refused),08/03/2021(Deferred: Patient Refused) MMR 06/06/2023(Deferred: No longer needed),06/05/2023(Deferred: No longer needed) Meningococcal MCV4P (Menactra) 12/30/2015 Varicella 06/06/2023(Deferred: No longer needed),06/05/2023(Deferred: No longer needed) Surgical History Surgery Date Site/Laterality Comments SECTION 05/16/2016 - 05/15/2017 CHOLECYSTECTOMY 05/16/2020 - 05/15/2021 SECTION, LOW TRANSVERSE 05/16/2020 - 05/15/2021 REPEAT SECTION 06/03/2023 at [facility]. with tubal ligation TUBAL LIGATION 06/03/2023 at [facility]. with c/s Medical History Medical History Date Comments Genital herpes Mood swings Depression PP depression wi th first S/P repeat low transverse 01/26/2021 01/27/21 POD #1 (AB) ?? Post S/p Elective repeat LTCS at 39w2d VSS EBL 280 mL. Hgb 11.2 on admission > 10.4 PPD#1, No signs/symptoms of acute blood loss anemia. Tolerating PO. Voiding spontaneously. Pain: Controlled with PO pain medications incision clean, dry and intact Bottle Feeding Baby doing well in the room with mom Disposition: Continue routine care ?? 9/ Family History Medical History Relation Name Comments No Known Problems Brother No Known Problems Father No Known Problems Maternal Grandfather No Known Problems Maternal Grandmother Diabetes Mother No Known Problems Paternal Grandfather No Known Problems Paternal Grandmother Uterine cancer Sister Breast cancer Neg Hx Heart disease Neg Hx Ovarian cancer Neg Hx Relation Name Status Comments Brother Alive Father Alive Maternal Grandfather Maternal Grandmother Alive Mother Alive Paternal Grandfather Paternal Grandmother Sister Alive Social History Tobacco Use Types Packs/Day Years Used Date Smoking Tobacco: Never Smokeless Tobacco: Never Tobacco Cessation:Counseling Given: Not Answered Alcohol Use Standard Drinks/Week Comments Not Currently 0 (1 standard drink = 0.6 oz pur e alcohol) [facility] Utilities Answer Date Recorded In the past 12 months has th e Hydrocapsule, gas, oil, or water [employer] threatened to shut off services in [...] often do you attend chur ch or baptism services? Never 06/05/2023 Do you belong to any clubs o r organizations such as moravian groups, unions, fraternal or athletic groups, or [...] place to sleep or slept in a half-way (including now)? No 06/05/2023 [place] Depression Scale Answer Date Recorded [place] Depression Scale Total 12 03/28/2024 The thought [...] on file Legal Sex Female 12:29 AM BENCH LATHE OPERATOR Gender Identity Not on file Sexual Orientation Not on file Obstetrics History Para Term AB IAB SAB Ectopic Multiple Livin g Live Births 3 3 3 0 3 3 Date Outcome GA Total Labor Labor/2nd/3rd Weight Sex Type Anes PTL Lashaun A1 A5 Name Clin 2016 Term 39w 0d 3.856 kg (8 lb 8 oz) M CS-LT ranv Combin ed Spinal /Epidu ral Livin g Complications:Other Excessiv e Bleeding Delivery Location:This Fac[facility] 2020 Term 39w 2d 0h 01m 0h 01m 3.55 kg (7 lb 13.2 oz) M CS-LT ranv Spinal N Livin g 9 9 MONE TAYLOR yRios Cothr on, DO Complications:None Delivery Location:[facility] Main C ampus ([facility] L AND D PROCEDURE) 2023 Term 39w 0d 0h 03m 0h 03m 3.38 kg (7 lb 7.2 oz) F C-Sec tion Combin ed Spinal /Epidu ral N Livin g 8 9 [place] Amanda Aceves MD Complications:None Delivery Location:[facility] Main C ampus ([facility] L AND D PROCEDURE) Comments G1: failure to descend Age of 1st cycle: 15 Age of 1st delivery: 21 Last Filed Vital Signs Vital Sign Reading [...] 02/16/2024 11:22 AM CDT Plan of Treatment Health Maintenance Due Date Last Done Comments Albumin Creatinine Ratio, Urine 1995 Dilated Eye Exam 1997 Foot Exam 1997 Lipid Panel 1997 Pneumococcal vaccine <65 (1 of 2 - PCV) 2003 DTaP/Tdap/Td Vaccine (1 - Tdap) 2008 Varicella Vaccines (1 of 2 - 13+ 2-dose series) 2010 HPV Vaccines (1 - 3-dose series) 2012 Hepatitis B Screening 2015 Zoster Vaccine (1 of 2) 2016 Covid-19 Vaccine (3 - Modern a risk series) 04/16/2021 03/19/2021, 02/18/2021 Hemoglobin A1C 05/05/2023 11/03/2022, 02/0 07/2020, 04/29/2016 Cervical Cancer Screening 11/25/2023 11/24/2022 Influenza Vaccine (#1) 2024 eGFR 05/15/2024 05/15/2023, 03/16, 10/18/2022, Additional history exists Regular Well Visit/Exam 18-64 02/15/2025 02/16/2024 Depression Screening 03/28/2025 03/28/2024, 06/24/2023, 06/24/2023, Additional history exists Hepatitis C Screening Completed 11/03/2022, 021 Procedures Procedure Name Priority Date/Time Associated Diagnosis Comments SCAN - RADIOLOGY/IMAGING 04/24/2024 EGFR STAT 05/15/2023 6:06 PM BENCH LATHE OPERATOR PAP WITH REFLEX TO HIGH RISK HPV Routine 11/24/2022 9:15 AM CDT Screening for cervical cancer HEPATITIS C ANTIBODY Routine 11/03/2022 3:17 PM CDT Positive test HEMOGLOBIN A1C Routine 11/03/2022 3:17 PM CDT Positive test from Last 3 Months or Most Recently Relevant to Health Maintenance Results * SCAN - RADIOLOGY/IMAGING (04/24/2024) Anatomical Region Laterality Modality Other us Jimenez Townsend MD Edited Result - Final * eGFR (05/15/2023 6:06 PM BENCH LATHE OPERATOR) eGFR 141 mL/min/1. 73 m2 [facility] [...] Inclusion of Race in Diagnosing Kidney Disease, JASN 202). The CKD-EPI equation should not be used for patients with unstable renal function and has not been validated in children and those over 70. Current interpretive data was last reviewed 2021. Testing performed by: [facility], [address] [place] [address], [place]., [address] Blood 05/15/2023 6:06 PM BENCH LATHE OPERATOR 05/15/2023 6:09 PM BENCH LATHE OPERATOR us Nasreen Ruiz MD LAB BLOOD ORDERABLES Fin al Result JUNG [address] [facility] [place] [address] * Pap with reflex to High Risk HPV and Genotyping (Cytology Component) (11/24/2022 9:15 AM CDT) Thin prep (Pap test) 11/24/2022 9:15 AM CDT 11/29/2022 9:15 AM CDT Narrative PATHOLOGY [facility] - 12/02/2022 9:50 AM CDT [facility] Department of Pathology [address] [place], [place] [id number] Final Report Note to Patients: This report [...] and explain the details. Patient Name: ??PEDRO STRICKLANDAravind Address: ??[address] [place] [address], ?? [place], [place] [address] Gender: ??F : ??1995 (Age: 27) Service: ?? Location: ?? Hospital #: ??[id number] Patient Type: ??[facility] SPECIMEN Taken: ??11/24/2022 Received: ??11/29/2022 Accessioned:: ??11/30/2022 Reported: ??12/02/2022 Physician(s): Dr. Marquez Nichols M.D. [facility] Diagnosis: SOURCE OF SPECIMEN ? Imaged Thinprep Pap Test w/ Reflex HPV - Project Development Leader Cytologic Material: STATEMENT OF ADEQUACY ?- Satisfactory for evaluation; endocervical/transformation zone component present ? GENERAL CATEGORIZATION: ?- Negative for intraepithelial lesion or malignancy ? INTERPRETATION: ?- Fungal organisms present, morphologically consistent with erickson species ?- Numerous inflammatory cells present ? LUZ Ramos(ASCP) Report Electronically Reviewed and Signed Out By ??LUZ Ramos(ASCP) ??12/02/2022 09:50:36Specimen(s) Received: A: Imaged Thinprep Pap Test w/ Reflex HPV - Project Development Leader Cytologic Material Clinical History: Last Menstrual Period: [...] determined by the Surgical Pathology Department at [facility] as part of an ongoing supplier quality program and in compliance with federally mandated [...] characteristics determined by the Surgical Pathology Department [facility]. ??It has not been cleared or approved by the U. S. Food and Drug Administration. Marquez Nichols MD LAB CYTOLOGY ORDERABLES Fi nal Result PATHOLOGY [facility] * Hepatitis C antibody (11/03/2022 3:17 PM CDT) Hep C Ab Nonreactive Nonreactive JUNG Comment: Interpretive Data Nonreactive: Antibodies to HCV [...] LAB MICROBIOLOGY - GENERAL ORDERABLES Final Result [facility] [address] [facility] Department [place] [address] * Hemoglobin A1c (11/03/2022 3:17 PM CDT) Hgb A1C 5.5 4.0 - 5.6 % JUNG Comment:Testing performed by : [address] [address] Estimated Average Glucose 111 mg/dL JUNG Comment: The ADA recommends reporting an estimated Average Glucose (eAG) with all Hemoglobin A1c results using the equation derived from a study of 507 normal and diabetic adults. ??Minority populations were underrepresented and children were not included. ?? (Diabetes Care 31:6709-1086, 2008). ??The eAG is not equivalent to a fasting glucose. Testing performed by: [address] [address] Blood 11/03/2022 3:17 PM CDT 11/03/2022 4:30 PM CDT us Marquez Nichols MD LAB BLOOD ORDERABLES Final Result Performing Organization Address City/State/ZIP Co mi Phone Number JUN[facility] [address] [facility] [place] [address] from Last 3 Months or Most Recently Relevant to Health Maintenance Insurance ID[place] BLUE ACCESS [place] IDPA Advance Directives For more information, please contact: [phone] * Full Code (Latest Code Status on [...] in case of cardiopulmonary arrest Care Teams Refrigerating Technician Relationship Specialty Start Date End Date Jimenez Townsend MD PCP - General 08/23/20
--- OUTSIDE RECORDS SUMMARY | 2024-06-10 14:07 | XMS_ITS | Encounter Summary ---
Author Organization [facility] Facility Care Team Providers Care Rehabilitation Manager Name Role Phone Jimenez Townsend MD Primary Care Provider [phone] Jimenez Townsend MD Primary Care Provider Encounter Details Date Type Department Care Team (Latest Contact Info) Description 10/13/2016 Orders Only [facility] CLINCONV ProviderSandra MD [address] [place], [place] [id number] Social History Tobacco Use Types Packs/Day Years Used Date Smoking Tobacco: Never Assessed Comments Unknown Sex and Gender Information Value Date Recorded Sex Assigned at Not on file Legal Sex Female 12:29 AM CONTACT ASSEMBLER Gender Identity Not on file Sexual Orientation Not on file documented as of this encounter Plan of Treatment Not on file documented as of this encounter Procedures Procedure Name Priority Date/Time Associated Diagnosis Comments SCAN - LABS 10/13/2016 12:00 AM CDT SCAN - LABS 10/13/2016 12:00 AM CDT documented in this encounter Results * SCAN - LABS (10/13/2016 12:00 AM CDT) Narrative 10/13/2016 12:00 AM CDT Ordered by an unspecified provider. Historical Provider Final Res ult * SCAN - LABS (10/13/2016 12:00 AM CDT) Narrative 10/13/2016 12:00 AM CDT Ordered by an unspecified provider. us Historical Provider Final Res ult documented in this encounter Visit Diagnoses Not on filedocumented in this encounter Additional Health Concerns Infection Onset Date Last Indicated Resolved Time COVID: Suspected 05/15/2023 05/15/2023 05/15/2023 6:50 PM CONTACT ASSEMBLER documented as of this encounter Care Teams Rehabilitation Manager Relationship Specialty Start Date End Date Jimenez Townsend MD PCP - General Family Medicine 08/07/18 08/22/20 Jimenez Townsend MD PCP - General 08/23/20 documented as of this encounter
--- OUTSIDE RECORDS SUMMARY | 2024-06-10 14:07 | XMS_ITS | Encounter Summary ---
Author Organization [facility] Facility Care Team Providers Care Paper Plate Machine Tender Name Role Phone Jimenez Townsend MD Primary Care Provider [phone] Jimenez Townsend MD Primary Care Provider Encounter Details Date Type Department Care Team (Latest Contact Info) Description 11/10/2016 Orders Only [facility] CLINCONV ProviderSandra MD [address] [place] [address] Social History Tobacco Use Types Packs/Day Years Used Date Smoking Tobacco: Never Assessed Comments Unknown Sex and Gender Information Value Date Recorded Sex Assigned at Not on file Legal Sex Female 12:29 AM NURSE EDUCATOR Gender Identity Not on file Sexual Orientation Not on file documented as of this encounter Plan of Treatment Not on file documented as of this encounter Procedures Procedure Name Priority Date/Time Associated Diagnosis Comments SCAN - PATHOLOGY 11/22/2016 12:0 0 AM CDT documented in this encounter Results * SCAN - PATHOLOGY (11/22/2016 12:00 AM CDT) Narrative 11/22/2016 12:00 AM CDT Ordered by an unspecified provider. Historical Provider Final Res ult documented in this encounter Visit Diagnoses Not on filedocumented in this encounter Additional Health Concerns Infection Onset Date Last Indicated Resolved Time COVID: Suspected 05/15/2023 05/15/2023 05/15/2023 6:50 PM NURSE EDUCATOR documented as of this encounter Care Teams Paper Plate Machine Tender Relationship Specialty Start Date End Date Jimenez Townsend MD PCP - General Family Medicine 08/07/18 08/22/20 Jimenez Townsend MD PCP - General 08/23/20 documented as of this encounter
--- OUTSIDE RECORDS SUMMARY | 2024-06-10 14:07 | XMS_ITS | Clinical Summary ---
Author Organization [facility] Care Team Providers Care Paper Grader Name Role Phone Unavailable Primary Care Provider Unavailabl e Social History Tobacco Use Types Packs/Day Years Used Date Smoking Tobacco: Never Assessed Comments Unknown Sex and Gender Information Value Date Recorded Sex Assigned at Not on file Legal Sex Female 12:28 PM CDT Gender Identity Not on file Sexual Orientation Not on file Plan of Treatment Health Maintenance Due Date Last Done Comments Hepatitis C Virus (HCV) Screening 1995 TdaP Immunization 1995 Human Papillomavirus (HPV) Immunization (1 - 3-dose series) 2012 Hepatitis B Immunization (1 of 3 - 19+ 3-dose series) 2016 Pap Smear 2018 Influenza Immunization (#1) 2024 SARS-COV-2 Immunization ( season) 2024 Respiratory Syncytial Virus (RSV) Immunization (Adult) (1 - 1-dose 75+ series) 2072 Meningococcal Immunization (ACWY) Aged Out No longer eligible based on patient's age to complete this topic Pneumococcal Immunization Combined Aged Out No longer eligible based on patient's age to complete this topic Rotavirus Immunization Aged Out No lo nger eligible based on patient's age to complete this topic
[2024-06-10 14:23] VITALS: BP 103/69; PULSE 76; RESP 16; TEMP 36.2; O2SAT 98
--- OUTSIDE RECORDS SUMMARY | 2024-06-10 14:45 | XMS_ITS | Encounter Summary ---
Author Organization [facility] Facility Care Team Providers Care Die Holder Name Role Phone Jimenez Townsend MD Primary Care Provider [phone] Jimenez Townsend MD Primary Care Provider [phone] Encounter Details Date Type Department Care Team (Latest Contact Info) Description 11/07/2016 Orders Only [facility] CLINCONV ProviderSandra MD [address] [place] [address] Social History Tobacco Use Types Packs/Day Years Used Date Smoking Tobacco: Never Assessed Comments Unknown Sex and Gender Information Value Date Recorded Sex Assigned at Not on file Legal Sex Female 12:29 AM SIX COLOR PRESS OPERATOR Gender Identity Not on file Sexual [...] COVID: Suspected 05/15/2023 05/15/2023 05/15/2023 6:50 PM SIX COLOR PRESS OPERATOR documented as of this encounter Care Teams Die Holder Relationship Specialty Start Date End Date Jimenez Townsend MD PCP - General Family Medicine 08/07/18 08/22/20 Jimenez Townsend MD PCP - General 08/23/20 documented as of this encounter
--- OUTSIDE RECORDS SUMMARY | 2024-06-10 14:45 | XMS_ITS | Clinical Summary ---
Author Organization [facility] at the [facility] Address [address] [place] [address] Care Team Providers Care Treasury Consultant Name Role Phone Jimenez Townsend MD Primary Care Provider [phone] Allergies Active Allergy Reactions Criticality Noted Date [...] the future she should seek evaluation by Publication Distributor to rule out an ectopic . Finally, [...] visit Assessment & Plan (05/11/2023 2:59 PM MARBLE CLEANER): Not checking sugars or keeping log and reports she will not be able to due to social stressors. Declines social work. Assessment & Plan (04/14/2023 10:36 PM MARBLE CLEANER): No BG logs to inform care plan. [...] has very little support. 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 No SI/HI. Tearful and says mood is not good. She is aware that the severity of her symptoms warrant psychiatry involvement however she declines. Self discontinued zoloft as it was not helping but is taking Latuda. Precautions reviewed. Assessment & Plan (04/14/2023 10:58 PM MARBLE CLEANER): We reviewed ED precautions given her symptoms. [...] [x] Blue Team Referring Provider: Marquez Nichols [phone] [] or Medicare Insurance [x] Dating Criteria: [...] 04/13 [x] Method of feeding: breast [] Desizing Pad Operator: [x] PP Depression Discussed: Declines further intervention at present. Consider psychiatry consult Assessment & Plan (04/14/2023 10:45 PM MARBLE CLEANER): Care per Dr. Everett and Magdalena. Reviewed [...] (11/21/2020): Added automatically from request for surgery [id number] History of 07/16/2020 023 Supervision of other [...] Department Care Team Description 04/24/2024 Orders Only [facility] Health Information Management [address] [place] [address] Jimenez Townsend MD 03/28/2024 2:30 PM MARBLE CLEANER Telemedicine [facility] Medical Group Obstetrical Gynecology [address] [place] [phone] Laurence Gaspar CNM Encounter for screening [...] 05/16/2020 - 05/15/2021 REPEAT SECTION 06/03/[address] [facility]. with tubal ligation TUBAL LIGATION 06/03/2023 at [facility]. with c/s Medical History Medical [...] drink = 0.6 oz pur e alcohol) [facility] Utilities Answer Date Recorded In the past 12 months has th e [employer], gas, oil, or water [employer] threatened to shut off services in your [...] often do you attend chur ch or faith services? Never 06/05/2023 Do you belong to any clubs o r organizations such as yazidism groups, unions, fraternal or athletic groups, or [...] place to sleep or slept in a long-term (including now)? No 06/05/2023 [place] Depression Scale Answer Date Recorded [place] Depression Scale Total 12 03/28/2024 The thought [...] on file Legal Sex Female 12:29 AM MARBLE CLEANER Gender Identity Not on file Sexual Orientation [...] TAYLOR yRios Cothr on, DO Complications:None Delivery Location:[facility] Main C ampus ([facility] L AND D PROCEDURE) 2023 Term 39w 0d 0h 03m 0h 03m 3.38 kg (7 lb 7.2 oz) F C-Sec tion Combin ed Spinal /Epidu ral N Livin g 8 9 Emerso n Amanda Aceves MD Complications:None Delivery Location:[facility] Main C ampus ([facility] L AND D PROCEDURE) Comments G1: failure [...] RADIOLOGY/IMAGING 04/24/2024 EGFR STAT 05/15/2023 6:06 PM MARBLE CLEANER PAP WITH REFLEX TO HIGH RISK HPV [...] - Final * eGFR (05/15/2023 6:06 PM MARBLE CLEANER) eGFR 141 mL/min/1. 73 m2 [facility] [place] [...] was last reviewed 2021. Testing performed by: [facility], [address] [place] [address], [place]., [address] Blood 05/15/2023 6:06 PM MARBLE CLEANER 05/15/2023 6:09 PM MARBLE CLEANER us Nasreen Ruiz MD LAB BLOOD ORDERABLES Fin al Result [facility] [address] [facility] Department [place] [address] * Pap with reflex to High Risk HPV and Genotyping (Cytology Component) (11/24/2022 9:15 AM CDT) Thin prep (Pap test) 11/24/2022 9:15 AM CDT 11/29/2022 9:15 AM CDT Narrative PATHOLOGY [facility] - 12/02/2022 9:50 AM CDT [facility] Department of Pathology [address] [place], [place] [id number] Final Report Note to Patients: This report [...] the details. Patient Name: ??PEDRO STRICKLANDAravind Address: ??[address] [place] [address], ?? [place], [place] [address] Gender: ??F : ??1995 (Age: 27) Service: ?? Location: ?? Hospital #: ??[id number] Patient Type: ??[facility] SPECIMEN Taken: ??11/24/2022 Received: ??11/29/2022 Accessioned:: ??11/30/2022 Reported: ??12/02/2022 Physician(s): Dr. Marquez Nichols M.D. [facility] Diagnosis: SOURCE OF SPECIMEN ? Imaged Thinprep Pap Test w/ Reflex HPV - Maintenance Helper Cytologic Material: STATEMENT OF ADEQUACY ?- Satisfactory for evaluation; endocervical/transformation zone component present ? GENERAL CATEGORIZATION: ?- Negative for intraepithelial lesion or malignancy ? INTERPRETATION: ?- Fungal organisms present, morphologically consistent with erickson species ?- Numerous inflammatory cells present ? LUZ Ramos(ASCP) Report Electronically Reviewed and Signed Out By ??LUZ Ramos(ASCP) ??12/02/2022 09:50:36Specimen(s) Received: A: Imaged Thinprep Pap Test w/ Reflex HPV - Maintenance Helper Cytologic Material Clinical History: Last Menstrual Period: [...] determined by the Surgical Pathology Department at [facility] as part of an ongoing vendor quality supervisor program and in compliance with federally mandated [...] LAB CYTOLOGY ORDERABLES Fi nal Result PATHOLOGY [facility] * Hepatitis C antibody (11/03/2022 [...] MICROBIOLOGY - GENERAL ORDERABLES Final Result [facility] [address] [facility] Department [place] [address] * Hemoglobin A1c (11/03/2022 3:17 PM CDT) Hgb A1C 5.5 4.0 - 5.6 % J[facility]G Comment:Testing performed by : [address] [address] Estimated Average Glucose 111 mg/dL J[facility]G Comment: The ADA recommends reporting an estimated Average Glucose (eAG) with all Hemoglobin A1c results using the equation derived from a study of 507 normal and diabetic adults. ??Minority populations were underrepresented and children were not included. ?? (Diabetes Care 31:6066-2593, 2008). ??The eAG is not equivalent to a fasting glucose. Testing performed by: [address] [address] Blood 11/03/2022 3:17 PM CDT 11/03/2022 4:30 PM CDT us Marquez Nichols MD LAB BLOOD ORDERABLES Final Result Performing Organization Address City/State/ZIP Co ak Phone Number [facility] [address] [facility] Department [place] [address] from Last 3 Months or Most Recently Relevant to Health Maintenance Insurance IDPA IDWI BLUE ACCESS [place] IDPA Advance Directives For more information, please contact: [phone] * Full Code (Latest Code Status on [...] in case of cardiopulmonary arrest Care Teams Treasury Consultant Relationship Specialty Start Date End Date Jimenez Townsend MD PCP - General 08/23/20
--- OUTSIDE RECORDS SUMMARY | 2024-06-10 14:45 | XMS_ITS | Clinical Summary ---
Author Organization [facility] Care Team Providers Care Caddy Name Role Phone Unavailable Primary Care Provider [...]
--- OUTSIDE RECORDS SUMMARY | 2024-06-10 14:45 | XMS_ITS | Referral Summary ---
Author Organization [facility] Address [address] [place] [address] Care Team Providers Care Production Miner Name Role Phone Jimenez Townsend MD Primary Care Provider [phone] Encounters Date Type Department Care Team Description 04/24/2024 Orders Only [facility] Health Information Management [address] [place] [address] Jimenez Townsend MD 03/28/2024 2:30 PM CUSTOMER EXPERIENCE PROFESSIONAL Telemedicine [facility] Medical Group Obstetrical Gynecology [address] [place] [phone] Laurence Gaspar CNM Encounter for screening [...] the future she should seek evaluation by Concrete Block Layer to rule out an ectopic . Finally, [...] visit Assessment & Plan (05/11/2023 2:59 PM CUSTOMER EXPERIENCE PROFESSIONAL): Not checking sugars or keeping log and reports she will not be able to due to social stressors. Declines social work. Assessment & Plan (04/14/2023 10:36 PM CUSTOMER EXPERIENCE PROFESSIONAL): No BG logs to inform care plan. [...] has very little support. 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 No SI/HI. Tearful and says mood is not good. She is aware that the severity of her symptoms warrant psychiatry involvement however she declines. Self discontinued zoloft as it was not helping but is taking Latuda. Precautions reviewed. Assessment & Plan (04/14/2023 10:58 PM CUSTOMER EXPERIENCE PROFESSIONAL): We reviewed ED precautions given her symptoms. [...] [x] Blue Team Referring Provider: Marquez Nichols [phone] [] or Medicare Insurance [x] Dating Criteria: [...] 04/13 [x] Method of feeding: breast [] Production Control Pegboard Clerk: [x] PP Depression Discussed: Declines further intervention at present. Consider psychiatry consult Assessment & Plan (04/14/2023 10:45 PM CUSTOMER EXPERIENCE PROFESSIONAL): Care per Dr. Everett and Magdalena. Reviewed [...] (11/21/2020): Added automatically from request for surgery [id number] History of 07/16/2020 023 Supervision of other [...] drink = 0.6 oz pur e alcohol) [facility] Utilities Answer Date Recorded In the past 12 months has th e [employer], gas, oil, or water MD [employer] threatened to shut off services in your [...] often do you attend chur ch or shinto services? Never 06/05/2023 Do you belong to any clubs o r organizations such as shinto groups, unions, fraternal or athletic groups, or [...] place to sleep or slept in a senior living (including now)? No 06/05/2023 [place] Depression Scale Answer Date Recorded [place] Depression Scale Total 12 03/28/2024 The thought [...] on file Legal Sex Female 12:29 AM CUSTOMER EXPERIENCE PROFESSIONAL Gender Identity Not on file Sexual Orientation [...] RADIOLOGY/IMAGING 04/24/2024 EGFR STAT 05/15/2023 6:06 PM CUSTOMER EXPERIENCE PROFESSIONAL PAP WITH REFLEX TO HIGH RISK HPV [...] - Final * eGFR (05/15/2023 6:06 PM CUSTOMER EXPERIENCE PROFESSIONAL) eGFR 141 mL/min/1. 73 m2 [facility] [place] [...] was last reviewed 2021. Testing performed by: [facility], [address] [place] [address]., [address] Blood 05/15/2023 6:06 PM CUSTOMER EXPERIENCE PROFESSIONAL 05/15/2023 6:09 PM CUSTOMER EXPERIENCE PROFESSIONAL us Nasreen Ruiz MD LAB BLOOD ORDERABLES Fin al Result [facility] [address] [facility] Department [place] [address] * Pap with reflex to High Risk HPV and Genotyping (Cytology Component) (11/24/2022 9:15 AM CDT) Thin prep (Pap test) 11/24/2022 9:15 AM CDT 11/29/2022 9:15 AM CDT Narrative PATHOLOGY [facility] - 12/02/2022 9:50 AM CDT [facility] Department of Pathology [address] [place] [address] Final Report Note to Patients: This [...] the details. Patient Name: ??PEDRO STRICKLAND Address: ??[address] [place] [address], ?? [place], [place] [address] Gender: ??F : ??1995 (Age: 27) Service: ?? Location: ?? Hospital #: ??[id number] Patient Type: ??[facility] SPECIMEN Taken: ??11/24/2022 Received: ??11/29/2022 Accessioned:: ??11/30/2022 Reported: ??12/02/2022 Physician(s): Dr. Marquez Nichols M.D. [facility] Diagnosis: SOURCE OF SPECIMEN ? Imaged Thinprep Pap Test w/ Reflex HPV - Family Practice Doctor Cytologic Material: STATEMENT OF ADEQUACY ?- Satisfactory for evaluation; endocervical/transformation zone component present ? GENERAL CATEGORIZATION: ?- Negative for intraepithelial lesion or malignancy ? INTERPRETATION: ?- Fungal organisms present, morphologically consistent with erickson species ?- Numerous inflammatory cells present ? LUZ Ramos(ASCP) Report Electronically Reviewed and Signed Out By ??LUZ Ramos(ASCP) ??12/02/2022 09:50:36Specimen(s) Received: A: Imaged Thinprep Pap Test w/ Reflex HPV - Family Practice Doctor Cytologic Material Clinical History: Last Menstrual Period: [...] determined by the Surgical Pathology Department at [facility] as part of an ongoing quality assurance monitor body program and in compliance with federally mandated [...] characteristics determined by the Surgical Pathology Department [facility]. ??It has not been cleared or approved by the U. S. Food and Drug Administration. Marquez Nichols MD LAB CYTOLOGY ORDERABLES Fi nal Result Performing Organization Address City/[facility]/ZIP Co de Phone Number PATHOLOGY [facility] * Hepatitis C antibody (11/03/2022 3:17 PM [...] GENERAL ORDERABLES Final Result Performing Organization Address [facility] de Phone Number [facility] [address] [facility] Department [place] [address] * Hemoglobin A1c (11/03/2022 3:17 PM CDT) Hgb A1C 5.5 4.0 - 5.6 % [facility] [place] Comment:Testing performed by : [facility], [address] [place] [address]., [address] Estimated Average Glucose 111 mg/dL [facility] [place] Comment: The ADA recommends reporting an estimated Average Glucose (eAG) with all Hemoglobin A1c results using the equation derived from a study of 507 normal and diabetic adults. ??Minority populations were underrepresented and children were not included. ?? (Diabetes Care 31:8983-3809, 2008). ??The eAG is not equivalent to a fasting glucose. Testing performed by: [facility], [address] [place] [address], [place]., [address] Blood 11/03/2022 3:17 PM CDT 11/03/2022 4:30 PM CDT Marquez Nichols MD LAB BLOOD ORDERABLES Final Result [facility] [address] [facility] Department [place] [address] from Last 3 Months or Most Recently Relevant to Health Maintenance Insurance IDWA IDWA BLUE ACCESS [place] IDPA Advance Directives For more information, please contact: [phone] * Full Code (Latest Code Status on [...] in case of cardiopulmonary arrest Care Teams Production Miner Relationship Specialty Start Date End Date Jimenez Townsend MD PCP - General 08/23/20
--- OUTSIDE RECORDS SUMMARY | 2024-06-10 14:45 | XMS_ITS | Encounter Summary ---
Author Organization [facility] Facility Care Team Providers Care Radio Officer Name Role Phone Jimenez Townsend MD Primary Care Provider [phone] Jimenez Townsend MD Primary Care Provider [phone] Encounter Details Date Type Department Care Team (Latest Contact Info) Description 10/28/2016 Orders Only [facility] CLINCONV ProviderSandra MD [address] [place] [address] Social History Tobacco Use Types Packs/Day Years Used Date Smoking Tobacco: Never Assessed Comments Unknown Sex and Gender Information Value Date Recorded Sex Assigned at Not on file Legal Sex Female 12:29 AM SALES CORRESPONDENT Gender Identity Not on file Sexual Orientation [...] COVID: Suspected 05/15/2023 05/15/2023 05/15/2023 6:50 PM SALES CORRESPONDENT documented as of this encounter Care Teams Radio Officer Relationship Specialty Start Date End Date Jimenez Townsend MD PCP - General Family Medicine 08/07/18 08/22/20 Jimenez Townsend MD PCP - General 08/23/20 documented as of this encounter
--- OUTSIDE RECORDS SUMMARY | 2024-06-10 14:45 | XMS_ITS | Encounter Summary ---
Author Organization [facility] Facility Care Team Providers Care Associate Counsel Name Role Phone Jimenez Townsend MD Primary Care Provider [phone] Jimenez Townsend MD Primary Care Provider [phone] Encounter Details Date Type Department Care Team (Latest Contact Info) Description 09/17/2016 Orders Only [facility] CLINCONV ProviderSandra MD [address] [place] [address] Social History Tobacco Use Types Packs/Day Years Used Date Smoking Tobacco: Never Assessed Comments Unknown Sex and Gender Information Value Date Recorded Sex Assigned at Not on file Legal Sex Female 12:29 AM HOME ENERGY INSPECTOR Gender Identity Not on file Sexual Orientation [...] COVID: Suspected 05/15/2023 05/15/2023 05/15/2023 6:50 PM HOME ENERGY INSPECTOR documented as of this encounter Care Teams Associate Counsel Relationship Specialty Start Date End Date Jimenez Townsend MD PCP - General Family Medicine 08/07/18 08/22/20 Jimenez Townsend MD PCP - General 08/23/20 documented as of this encounter
--- OUTSIDE RECORDS SUMMARY | 2024-06-10 14:45 | XMS_ITS | Encounter Summary ---
Author Organization [facility] Care Team Providers Care Supervisor Sample Preparation Name Role Phone Jimenez Townsend MD Primary Care Provider [phone] Jimenez Townsend MD Primary Care Provider [phone] Encounter Details Date Type Department Care Team (Latest Contact Info) Description 11/10/2016 Orders Only [facility] CLINCONV ProviderSandra MD [address] [place] [id number] Social History Tobacco Use Types Packs/Day Years Used Date Smoking Tobacco: Never Assessed Comments Unknown Sex and Gender Information Value Date Recorded Sex Assigned at Not on file Legal Sex Female 12:29 AM EDGER RUNNER Gender Identity Not on file Sexual Orientation [...] COVID: Suspected 05/15/2023 05/15/2023 05/15/2023 6:50 PM EDGER RUNNER documented as of this encounter Care Teams Supervisor Sample Preparation Relationship Specialty Start Date End Date Jimenez Townsend MD PCP - General Family Medicine 08/07/18 08/22/20 Jimenez Townsend MD PCP - General 08/23/20 documented as of this encounter
--- OUTSIDE RECORDS SUMMARY | 2024-06-10 14:45 | XMS_ITS | Encounter Summary ---
Author Organization [facility] Facility Care Team Providers Care Sql Application Developer Name Role Phone Jimenez Townsend MD Primary Care Provider [phone] Jimenez Townsend MD Primary Care Provider [phone] Encounter Details Date Type Department Care Team (Latest Contact Info) Description 09/15/2016 Orders Only [facility] CLINCONV ProviderSandra MD [address] [place] [id number] Social History Tobacco Use Types Packs/Day Years Used Date Smoking Tobacco: Never Assessed Comments Unknown Sex and Gender Information Value Date Recorded Sex Assigned at Not on file Legal Sex Female 12:29 AM DEPARTMENT SUPERVISOR Gender Identity Not on file Sexual Orientation [...] COVID: Suspected 05/15/2023 05/15/2023 05/15/2023 6:50 PM DEPARTMENT SUPERVISOR documented as of this encounter Care Teams Sql Application Developer Relationship Specialty Start Date End Date Jimenez Townsend MD PCP - General Family Medicine 08/07/18 08/22/20 Jimenez Townsend MD PCP - General 08/23/20 documented as of this encounter
--- OUTSIDE RECORDS SUMMARY | 2024-06-10 14:45 | XMS_ITS | Encounter Summary ---
Author Organization [facility] Facility Care Team Providers Care Utility Bag Assembler Name Role Phone Jimenez Townsend MD Primary Care Provider [phone] Jimenez Townsend MD Primary Care Provider [phone] Encounter Details Date Type Department Care Team (Latest Contact Info) Description 10/13/2016 Orders Only [facility] CLINCONV ProviderSandra MD [address] [place], [place] [id number] Social History Tobacco Use Types Packs/Day Years Used Date Smoking Tobacco: Never Assessed Comments Unknown Sex and Gender Information Value Date Recorded Sex Assigned at Not on file Legal Sex Female 12:29 AM AQUACULTURE WORKER Gender Identity Not on file Sexual Orientation [...] COVID: Suspected 05/15/2023 05/15/2023 05/15/2023 6:50 PM AQUACULTURE WORKER documented as of this encounter Care Teams Utility Bag Assembler Relationship Specialty Start Date End Date Jimenez Townsend MD PCP - General Family Medicine 08/07/18 08/22/20 Jimenez Townsend MD PCP - General 08/23/20 documented as of this encounter
--- NOTE | 2024-06-10 14:49 | ED.EXTPRO ---
HPI - Extremity Problem General Chief complaint: Extremity Problem,Nontraumatic Stated complaint: R knee and calf pain and swelling since last night Time Seen by Provider: 06/10/24 14:37 Source: patient Mode of arrival: ambulatory Limitations: no limitations History of Present Illness HPI Narrative: Patient is a 28 y/o female who presents to the ED with c/o pain throughout her right lower leg. Patient reports she went line dancing with her friends last night. She states she began having pain throughout her right knee and R lower leg while dancing. States she had trouble getting her boot off of her R foot afterwards d/t swelling. Reports worsening pain and swelling throughout R knee and calf today, difficulty ambulating w/o pain. Has not taken anything for pain. States she had to call off work today d/t the pain. Denies numbness. Denies hx of dvt. Related Data Allergies Allergy/AdvReac Type Severity Reaction Status Date / Time baclofen AdvReac Chills Verified 06/10/24 14:06 meloxicam AdvReac Chills Verified 06/10/24 14:06 Review of Systems Review of Systems: All systems reviewed & are unremarkable except as noted in HPI. All systems reviewed & are unremarkable except as noted in HPI and below PMFSH Past Medical History Medical History Obesity Surgical History Surgical History History of cholecystectomy 03/13/21 Previous section Family History Family History Mother Diabetes mellitus Social History Social History Smoking status: Never smoker Second hand tobacco smoke exposure: No Alcohol intake: never Substance use: never Living arrangements: with family Spiritual care concerns: No Exam Narrative: GENERAL: Well appearing, obese with BMI of 31.4, non-toxic, in no acute distress. HEAD: Normocephalic, atraumatic. RESPIRATORY: Airway patent, respirations nonlabored. CARDIOVASCULAR: Regular rate and rhythm. Pedal pulses intact and easily palpable. MUSCULOSKELETAL: Moves all extremities. No gross deformities. Mild tenderness to palpation throughout right anterior knee, right posterior knee. Mild tenderness throughout posterior calf. No significant swelling throughout right lower leg. Sensation intact. SKIN: Warm, dry, normal color. NEURO: A&O X3. Speech clear. No ataxic movements. PSYCHIATRIC: Appropriate mood and affect. Normal interaction. Course Vital Signs Vital signs: Vital Signs Temperature 97.2 F L 06/10/24 14:23 Pulse Rate 76 06/10/24 14:23 Respiratory Rate 16 06/10/24 14:23 Blood Pressure 103/69 06/10/24 14:23 Pulse Oximetry 98 06/10/24 14:23 Oxygen Delivery Room Air 06/10/24 14:23 Temperature 97.2 F L 06/10/24 14:23 Pulse Rate 76 06/10/24 14:23 Respiratory Rate 16 06/10/24 14:23 Blood Pressure 103/69 06/10/24 14:23 Pulse Oximetry 98 06/10/24 14:23 Oxygen Delivery Room Air 06/10/24 14:23 MDM - Extremity (Nontraumatic) MDM Narrative Medical decision making narrative: Patient presented to ED with RLE pain and subjective swelling after line dancing. VSS. Patient?s injury is consistent with musculoskeletal etiology. No signs of neurologic or vascular compromise on physical examination. Compartments are soft without signs of compartment syndrome. XR R knee negative. Venous Doppler US negative. Pain is consistent with muscular strain. Patient is felt to be stable for discharge home and further outpatient management and treatment. Advised to continue Ibuprofen/tylenol as needed for pain. Given Herminio bandage in the ED. Discussed rice therapy, return precautions. Patient discharged in stable condition. Given work note. Differential Diagnosis Differential diagnosis: Likely gout, cellulitis, superficial thrombophlebitis, lower extremity edema and other (msk pain, muscular strain) Medical Records Attestation: I reviewed the patient's medical records. Imaging Data Attestation: I personally reviewed and interpreted this imaging study as follows: Radiologist's impression: ITS Impressions Knee X-Ray 06/10/24 15:52 IMPRESSION: No acute osseous finding in the right knee. Venous Doppler Study 06/10/24 15:54 IMPRESSION: Patent right lower extremity veins. No evidence of deep venous thrombosis. Discharge Plan Discharge Clinical Impression: Muscle strain of right lower extremity Qualifiers: Encounter type: initial encounter Qualified Code(s): S86.911A - Strain of unspecified muscle(s) and tendon(s) at lower leg level, right leg, initial encounter Patient Disposition: Home, Self-Care Condition: Stable Instructions: Antibiotic Form, Musculoskeletal Pain (ED), Leg Sprain (ED) Additional Instructions: Your imaging did not show any abnormalities. You likely strained the muscles of your leg. Continue Tylenol and ibuprofen as needed for pain. Elevate leg whenever able. Utilize ice to area of pain, Herminio bandage for compression and support. Follow-up with your primary care doctor for further evaluation if needed. Patient Language: Albanian Prescriptions: No Action ciprofloxacin HCl [Cipro] 500 mg tablet 500 mg PO Q12H Qty: 20 0RF ondansetron HCl 4 mg tablet 4 mg PO Q4H Qty: 10 0RF Rx Instructions: 1st dose 1-2 hr before radiation ondansetron 4 mg tablet,disintegrating 4 mg PO Q6H PRN (Reason: nausea and vomiting) Qty: 10 0RF oseltamivir [Tamiflu] 75 mg capsule 75 mg PO Q12H 5 Days Qty: 10 0RF methylprednisolone [Medrol (Lee)] 4 mg tablets,dose pack See Rx Instructions PO .COMPLEX Qty: 21 0RF Rx Instructions: orally per package directions amoxicillin-pot clavulanate 875-125 mg tablet 1 tablet PO Q12H 10 Days Qty: 20 0RF lidocaine 5 % adhesive patch,medicated 2 patch topical DAILY Qty: 30 0RF Rx Instructions: leave on most painful area for up to 12 hrs orphenadrine citrate 100 mg tablet extended release 100 mg PO Q12H PRN (Reason: muscle spasm) Qty: 10 0RF Follow-up/Referrals: Cary,Jimenez Echavarria MD [Primary Care Provider] - Stand Alone Forms: Work/School Release IP Time of Disposition: 15:58
[2024-06-10] MEDS: KETOROLAC (*BKC) 60 MG/2 ML VIAL IM (15:19)
== END 2024-06-10 16:53 | disposition home or self-care (01) ==
PROVIDERS: Emergency Provider Physician Assistant; PCP Family Medicine
DX: S86.911A Strain of unspecified muscle(s) and tendon(s) at lower leg level, right leg, initial encounter (principal); E66.9 Obesity, unspecified; Z68.31 Body mass index [BMI] 31.0-31.9, adult; Z90.49 Acquired absence of other specified parts of digestive tract; X50.9XXA Other and unspecified overexertion or strenuous movements or postures, initial encounter; Y93.41 Activity, dancing
CPT/HCPCS: 73564; 93971; 96372; 99284; J1885

== ENCOUNTER 2024-07-15 11:32 | Emergency (ER) | payer MEDICAID, SELFPAY ==
[2024-07-15 11:35] VITALS: BP 123/64; PULSE 77; RESP 16; TEMP 36.4; O2SAT 99
--- NOTE | 2024-07-15 12:19 | ED.URI ---
HPI - URI/Sore Throat General Chief Complaint: Upper Respiratory Infection Stated Complaint: flu symptoms Time Seen by Provider: 07/15/24 12:12 Source: patient Mode of arrival: ambulatory Limitations: no limitations History of Present Illness HPI Narrative: 29 years old white female came to the ED with flu-like symptoms started 2 days ago. Body aches, headache, fever, not feeling well, poor appetite. Daughter tested positive for influenza A recently Related Data Allergies Allergy/AdvReac Type Severity Reaction Status Date / Time baclofen AdvReac Chills Verified 06/10/24 14:06 meloxicam AdvReac Chills Verified 06/10/24 14:06 Review of Systems Review of Systems: All systems reviewed & are unremarkable except as noted in HPI and below PMFSH Past Medical History Medical History Obesity Surgical History Surgical History History of cholecystectomy 03/13/21 Previous section Family History Family History Mother Diabetes mellitus Social History Social History Smoking status: Never smoker Second hand tobacco smoke exposure: No Alcohol intake: never Substance use: never Living arrangements: with family Spiritual care concerns: No Exam Narrative: General appearance: Well-developed, well-nourished Skin: Normal color Head: Normocephalic, nontraumatic Eyes: Clear conjunctiva ENT: Oropharynx normal, ears normal, nose normal Neck: Supple, nontender Chest and respiratory: Airway patent, no respiratory distress, no accessory muscle use Heart: Regular rate/rhythm Abdomen: Soft, nontender, no organomegaly, quiet bowel sounds Vascular: Normal peripheral pulses, normal capillary refill. Musculoskeletal: Normal range of motion, nontender back Neurologic: Alert and oriented ?3, VISUAL DISPLAY ASSOCIATE is normal as tested, no gross motor deficit Course Vital Signs Vital signs: Vital Signs Temperature 36.4 C 07/15/24 11:35 Pulse Rate 77 07/15/24 11:35 Respiratory Rate 16 07/15/24 11:35 Blood Pressure 123/64 07/15/24 11:35 Pulse Oximetry 99 07/15/24 11:35 Temperature 36.4 C 07/15/24 11:35 Pulse Rate 77 07/15/24 11:35 Respiratory Rate 16 07/15/24 11:35 Blood Pressure 123/64 07/15/24 11:35 Pulse Oximetry 99 07/15/24 11:35 MDM - URI/Sore Throat MDM Narrative Medical decision making narrative: Patient presents with upper respiratory viral infection like symptoms Vital signs are stable Physical examination insignificant Patient tested positive today for COVID and influenza a Symptoms started within 48 hours, patient will be a good candidate for Paxil over the and Tamiflu. Differential Diagnosis Differential diagnosis: Likely other (As above) Lab Data Labs: Lab Results 07/15/24 Range/Units 11:40 Influenza A (RT-PCR) Positive A (Negative) Influenza B (RT-PCR) Negative (Negative) RSV (RT-PCR) Negative (Negative) SARS-CoV-2 RNA (RT-PCR) Positive A (Negative) Imaging Data Radiologist's impression: Impressions Chest X-Ray 07/15/24 12:00 Impression: Normal chest. Critical Care Time Critical Care Time Critical Care Time: No Discharge Plan Discharge Clinical Impression: Influenza, COVID Patient Disposition: Home, Self-Care Condition: Stable Instructions: Influenza (ED), Viral Syndrome (ED), COVID-19 (Coronavirus Disease 2019) (ED) Additional Instructions: Return if symptoms are worsening , call your family physician for appointment, take Tylenol, ibuprofen as as needed for aches and pain, continue home medications. Patient Language: Divehi Prescriptions: New Paxlovid 300 mg (150 mg x 2)-100 mg tablets,dose pack See Rx Instructions PO .COMPLEX Qty: 30 0RF Rx Instructions: take TWO 150 mg tablets of nirmatrelvir with ONE 100 mg tablet of ritonavir twice daily for 5 days oseltamivir [Tamiflu] 75 mg capsule 75 mg PO BID Qty: 10 0RF No Action ciprofloxacin HCl [Cipro] 500 mg tablet 500 mg PO Q12H Qty: 20 0RF ondansetron HCl 4 mg tablet 4 mg PO Q4H Qty: 10 0RF Rx Instructions: 1st dose 1-2 hr before radiation ondansetron 4 mg tablet,disintegrating 4 mg PO Q6H PRN (Reason: nausea and vomiting) Qty: 10 0RF oseltamivir [Tamiflu] 75 mg capsule 75 mg PO Q12H 5 Days Qty: 10 0RF methylprednisolone [Medrol (Lee)] 4 mg tablets,dose pack See Rx Instructions PO .COMPLEX Qty: 21 0RF Rx Instructions: orally per package directions amoxicillin-pot clavulanate 875-125 mg tablet 1 tablet PO Q12H 10 Days Qty: 20 0RF lidocaine 5 % adhesive patch,medicated 2 patch topical DAILY Qty: 30 0RF Rx Instructions: leave on most painful area for up to 12 hrs orphenadrine citrate 100 mg tablet extended release 100 mg PO Q12H PRN (Reason: muscle spasm) Qty: 10 0RF Follow-up/Referrals: Cary,Jimenez Echavarria MD [Primary Care Provider] - Stand Alone Forms: Work/School Release IP
[2024-07-15 12:22] LABS: Influenza A QL RT-PCR Positive (Negative); Influenza B QL RT-PCR Negative (Negative); RSV RNA, RT-PCR Negative (Negative); SARS-CoV-2 RNA PCR Positive (Negative)
== END 2024-07-15 13:01 | disposition home or self-care (01) ==
PROVIDERS: Emergency Provider Emergency Medicine; PCP Family Medicine
DX: U07.1 COVID-19 (principal); J10.1 Influenza due to other identified influenza virus with other respiratory manifestations; Z90.49 Acquired absence of other specified parts of digestive tract
CPT/HCPCS: 71046; 87637; 99283

== ENCOUNTER 2024-07-31 14:40 | Emergency (ER) | payer BC, MEDICAID, SELFPAY ==
--- NOTE | ~2024-07-31 | XR_ITS ---
XR finger 5th RT min 2V Ordering provider: Tess Brown MD History: . Caught between wall/table, RT 5TH DIGIT SWELLING, PAIN . Comparison: None. FINDINGS: BONES: No acute fracture or dislocation. JOINT SPACES: Normal. SOFT TISSUES: Normal. IMPRESSION: No acute osseous abnormality. Reviewed, dictated and finalized at location A.
[2024-07-31 14:49] VITALS: BP 111/58; PULSE 71; RESP 16; TEMP 36.4; O2SAT 99
--- OUTSIDE RECORDS SUMMARY | 2024-07-31 16:34 | XMS_ITS | Clinical Summary ---
Author Organization [facility] Care Team Providers Care Activities Volunteer Name Role Phone Unavailable Primary Care Provider [...]
--- OUTSIDE RECORDS SUMMARY | 2024-07-31 16:34 | XMS_ITS | Encounter Summary ---
Author Organization [facility] Facility Care Team Providers Care Captain/Airline Pilot Name Role Phone Jimenez Townsend MD Primary Care Provider [phone] Jimenez Townsend MD Primary Care Provider [phone] Encounter Details Date Type Department Care Team (Latest Contact Info) Description 09/15/2016 Orders Only [facility] CLINCONV ProviderSandra MD [address] [place] [address] Social History Tobacco Use Types Packs/Day Years Used Date Smoking Tobacco: Never Assessed Comments Unknown Sex and Gender Information Value Date Recorded Sex Assigned at Not on file Legal Sex Female 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
--- OUTSIDE RECORDS SUMMARY | 2024-07-31 16:34 | XMS_ITS | Encounter Summary ---
Author Organization [facility] Facility Care Team Providers Care Tie In Hand Name Role Phone Jimenez Townsend MD Primary Care Provider [phone] Jimenez Townsend MD Primary Care Provider [phone] Encounter Details Date Type Department Care Team (Latest Contact Info) Description 09/17/2016 Orders Only [facility] CLINCONV ProviderSandra MD [address] [place] [address] Social History Tobacco Use Types Packs/Day Years Used Date Smoking Tobacco: Never Assessed Comments Unknown Sex and Gender Information Value Date Recorded Sex Assigned at Not on file Legal 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
--- OUTSIDE RECORDS SUMMARY | 2024-07-31 16:34 | XMS_ITS | Encounter Summary ---
Author Organization 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
--- OUTSIDE RECORDS SUMMARY | 2024-07-31 16:34 | XMS_ITS | Encounter Summary ---
Author Organization [facility] Facility Care Team Providers Care Statistical Technician Name Role Phone Jimenez Townsend MD Primary Care Provider Jimenez Townsend MD Primary Care Provider [phone] Encounter Details Date Type Department Care Team (Latest Contact Info) Description 11/10/2016 Orders Only [facility] CLINCONV ProviderSandra MD [address] [place] [address] Social History Tobacco Use Types Packs/Day Years Used Date Smoking Tobacco: Never Assessed Comments Unknown Sex and Gender Information Value Date Recorded Sex Assigned at Not on file Legal Sex Female 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
--- OUTSIDE RECORDS SUMMARY | 2024-07-31 16:34 | XMS_ITS | Referral Summary ---
Author Organization [facility] Office Center Address [address] [place] [address] Care Team Providers Care Stitcher Around Name Role Phone Jimenez Townsend MD Primary Care Provider [phone] Encounters Date Type Department Care Team Description 07/15/2024 Orders Only [facility] Health Information Management [address] [place] [phone] Jimenez Townsend MD 07/05/2024 Telephone [facility] Pediatric Genetics [facility] [address] [place] [phone] Maru Watts MD Test results 06/20/2024 4:55 [place] [phone] Genetic testing 06/20/2024 Orders Only [facility] Pediatric Genetics [address] [place] [phone] Skye Nelson CGC Genetic testing (Primary Dx) 06/13/2024 Orders Only [facility] Health Information Management [address] [place] [address] Jimenez Townsend MD from Last 3 Months Allergies Active Allergy Reactions Criticality Noted Date Comments Baclofen Swelling Medium 09/08/2020 Meloxicam Fever Medium 09/19/2019 Medications sertraline (Zoloft) 50 mg tablet Take 3 tablets (150 mg total) by mouth daily 270 tablet 3 02/16/2024 Active dextroamphetami ne-amphetamine XR (ADDERALL XR) 15 mg 24 hr capsule Take 1 capsule (15 mg total) by mouth every morning 30 capsule 02/17/2024 Active Active Problems Problem Noted Date Diagnosed Date History of 06/03/2023 Overview (06/03/2023): Pedro Strikcland is a 27 y.o. female at 39w0d [...] the future she should seek evaluation by [employer] to rule out an ectopic . Finally, [...] visit Assessment & Plan (05/11/2023 2:59 PM SKATE HOP): Not checking sugars or keeping log and reports she will not be able to due to social stressors. Declines social work. Assessment & Plan (04/14/2023 10:36 PM SKATE HOP): No BG logs to inform care plan. [...] has very little support. 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 No SI/HI. Tearful and says mood is not good. She is aware that the severity of her symptoms warrant psychiatry involvement however she declines. Self discontinued zoloft as it was not helping but is taking Latuda. Precautions reviewed. Assessment & Plan (04/14/2023 10:58 PM SKATE HOP): We reviewed ED precautions given her symptoms. [...] [x] Blue Team Referring Provider: Marquez Nichols [phone] [] or Medicare Insurance [x] Dating Criteria: [...] 04/13 [x] Method of feeding: breast [] Technology Services Manager: [x] PP Depression Discussed: Declines further intervention at present. Consider psychiatry consult Assessment & Plan (04/14/2023 10:45 PM SKATE HOP): Care per Dr. Everett and Magdalena. Reviewed [...] (11/21/2020): Added automatically from request for surgery [id number] History of 07/16/2020 023 Supervision of other [...] 03/19/2020 Overview (12/07/2018): Nexplanon placed 02/2017. Immunizations Immunization Administration Dates Next Due Influenza, Unspecified 06/23/2023(Deferr [...] 0.6 oz pur e alcohol) [facility] ISO Groupities Answer Date Recorded In the past 12 months has [employer], [employer], oil, or water [employer] threatened to shut off services in your [...] often do you attend chur ch or lutheran services? Never 06/05/2023 Do you belong to any clubs o r organizations such as synagogue groups, unions, fraternal or athletic groups, or [...] place to sleep or slept in a nursing home (including now)? No 06/05/2023 [place] Depression Scale Answer Date Recorded [place] Depression Scale Total 12 03/28/2024 The thought [...] on file Legal Sex Female 12:29 AM SKATE HOP Gender Identity Not on file Sexual Orientation Not on file Last Filed Vital Signs Vital Sign Reading Time Taken Comments Blood Pressure 114/62 02/16/2024 11:22 AM CDT Pulse 70 10/03/2023 12:56 PM CDT Temperature 36.5 C (97.7 F) 10/03/2023 11:40 AM CDT Respiratory Rate 16 10/03/2023 12:56 PM CDT [...] Date/Time Associated Diagnosis Comments SCAN - RADIOLOGY/IMAGING 07/15/2024 MISCELLANEOUS GENETICS LAB Routine 06/20/2024 5:13 PM SKATE HOP Genetic testing SCAN - RADIOLOGY/IMAGING 06/13/2024 9:18 PM SKATE HOP EGFR STAT 05/15/2023 6:06 PM SKATE HOP PAP WITH REFLEX TO HIGH RISK HPV Routine 11/24/2022 9:15 AM CDT Screening for cervical cancer HEPATITIS C ANTIBODY Routine 11/03/2022 3:17 PM CDT Positive test HEMOGLOBIN A1C Routine 11/03/2022 3:17 PM CDT Positive test from Last 3 Months or Most Recently Relevant to Health Maintenance Results * SCAN - RADIOLOGY/IMAGING (07/15/2024) Anatomical Region Laterality Modality Other us Jimenez Townsend MD Final Result * GenomeSeqDx Comparator Sample to GeneDx - Miscellaneous Test (06/20/2024 5:13 PM SKATE HOP) Test Name GenomeSeqDx Duo -mother Result 1 See Comment [facility] Comment:Parental sample sent on 06/20/2024; see Proband report once completed. Complete [id number] [facility] Miscellaneous 06/20/2024 5:1 3 PM SKATE HOP 06/20/2024 9:47 PM SKATE HOP Narrative [facility] - 06/20/2024 9:50 PM SKATE HOP Order is in [facility] Name of test to be performed:->GenomeSeqDx Comparator Sample to GeneDx Specimen type/source->3-4 ml blood in EDTA us Maru Watts MD LAB GENETIC TESTING Fi nal Result [facility] [place] [address] * SCAN - RADIOLOGY/IMAGING (06/13/2024 9:18 PM SKATE HOP) Anatomical Region Laterality Modality Other us Jimenez Townsend MD Final Result * eGFR (05/15/2023 6:06 PM SKATE HOP) eGFR 141 mL/min/1. 73 m2 [facility] Comment: Interpretive Data Reference Interval Normal >/= 90 mL/min/1.73m2 Mildly decreased* 60 - 89 mL/min/1.73m2 Mildly to moderately decreased 45 - 59 mL/min/1.73m2 Moderately to severely decreased 30 - 44 mL/min/1.73m2 Severely decreased 15 - 29 mL/min/1.73m2 Kidney Failure < 15 mL/min/1.73m2 *Relative to young adult level Estimated glomerular filtration rate is determined by the 2020 CKD-EPI equation recommended by the National Kidney Foundation (A Unifying Approach to GFR Estimation: Recommendations of the NKF-ASK Task Force on Reassessing the Inclusion of Race in Diagnosing Kidney Disease, JASN 2020). The CKD-EPI equation should not be used for patients with unstable renal function and has not been validated in children and those over 70. Current interpretive data was last reviewed 2021. Testing performed by: [facility], [address] [place] [address], [place]., [address] Blood 05/15/2023 6:06 PM SKATE HOP 05/15/2023 6:09 PM SKATE HOP us Nasreen Ruiz MD LAB BLOOD ORDERABLES Fin al Result [facility] [address] [facility] [place] [address] * Pap with reflex to High Risk HPV and Genotyping (Cytology Component) (11/24/2022 9:15 AM CDT) Thin prep (Pap test) 11/24/2022 9:15 AM CDT 11/29/2022 9:15 AM CDT Narrative PATHOLOGY [facility] - 12/02/2022 9:50 AM CDT [facility] Department of Pathology [address] [place], [place] [id number] Final Report Note to Patients: This report [...] questions and explain the details. Patient Name: PEDRO STRICKLAND Address: [address] [place] [address] Gender: F : 1995 (Age: 27) Service: Location: N : [id number] Hospital #: [id number] Patient Type: [facility] SPECIMEN Taken: 11/24/2022 Received: 11/29/2022 Accessioned:: 11/30/2022 Reported: 12/02/2022 Physician(s): Dr. Marquez Nichols M.D. [facility] Diagnosis: SOURCE OF SPECIMEN Imaged Thinprep Pap Test w/ Reflex HPV - Beef Ribber Cytologic Material: STATEMENT OF ADEQUACY - Satisfactory for evaluation; endocervical/transformation zone component present GENERAL CATEGORIZATION: - Negative for intraepithelial lesion or malignancy INTERPRETATION: - Fungal organisms present, morphologically consistent with erickson species - Numerous inflammatory cells present LUZ Ramos(ASCP) Report Electronically Reviewed and Signed Out By LUZ Raoms(ASCP) 12/02/2022 09:50:36Specimen(s) Received: A: Imaged Thinprep Pap Test w/ Reflex HPV - Beef Ribber Cytologic Material Clinical History: Last Menstrual Period: 10/02/2022 The Pap test is a screening test used to aid in the detection of cervical cancer and its precursors. It should not be the sole means by which malignant and premalignant lesions are diagnosed. Both false negative and false positive results may occur. It also has poor sensitivity for the detection of endometrial lesions and should not be used to evaluate suspected endometrial abnormalities. For these reasons it is most important to obtain Pap tests at regular intervals. The performance characteristics of some immunohistochemical stains, fluorescence in-situ hybridization tests and immunophenotyping by flow cytometry cited in this report (if any) were determined by the Surgical Pathology Department at [facility] as part of an ongoing quality assurance monitor body program and in compliance with federally mandated regulations drawn from the Clinical Laboratory Improvement Act of 1988 (CLIA '88). Some of these tests rely on the use of analyte specific reagents and are subject to specific labeling requirements by the US Food and Drug Administration. Such diagnostic tests may only be performed in a facility that is certified by the Department of Health and Human Services as a high complexity laboratory under CLIA '88. The FDA has determined that such clearance or approval is not necessary. This test is used for clinical purposes. It should not be regarded as investigational or for research. Nevertheless, federal rules concerning the medical use of analyte specific reagents require that the following disclaimer be attached to the report: This test was developed and its performance characteristics determined by the Surgical Pathology Department [facility]. It has not been cleared or approved by the U. S. Food and Drug Administration. Marquez Nicohls MD LAB CYTOLOGY ORDERABLES [facility] Result PATHOLOGY [facility] * Hepatitis C antibody (11/03/2022 3:17 PM CDT) Hep C Ab Nonreactive Nonreactive [facility] Comment: Interpretive Data Nonreactive: Antibodies to HCV not detected. Does NOT exclude the possibility of recent exposure to HCV. Equivocal: Equivocal for HCV antibodies. Supplemental molecular testing will be automatically performed to determine infection status in accordance with current CDC screening recommendations. Reactive: Positive for HCV antibodies. This may represent current or past HCV infection. Supplemental molecular testing will be automatically performed to determine current infection status in accordance with current CDC screening recommendations. Interpretive data was last revised on 2019. Blood 11/03/2022 3:17 PM CDT 11/03/2022 4:50 PM CDT Marquez Nichols MD LAB MICROBIOLOGY - GENERAL ORDERABLES Final Result Performing Organization Address [facility] Co de Phone Number [facility] [address] [place] [address] * Hemoglobin A1c (11/03/2022 3:17 PM CDT) Hgb A1C 5.5 4.0 - 5.6 % [facility] Comment:Testing performed by : [address] [address] Estimated Average Glucose 111 mg/dL [facility] Comment: The ADA recommends reporting an estimated Average Glucose (eAG) with all Hemoglobin A1c results using the equation derived from a study of 507 normal and diabetic adults. Minority populations were underrepresented and children were not included. (Diabetes Care 31:5274-9421, 2008). The eAG is not equivalent to a fasting glucose. Testing performed by: [facility], [address] [place] [address]., [address] Blood 11/03/2022 3:17 PM CDT 11/03/2022 4:30 PM CDT Marquez Nichols MD LAB BLOOD ORDERABLES Final Result Performing Organization Address City/[facility] Co de Phone Number [facility] [address] [place] [address] from Last 3 Months or Most Recently Relevant to Health Maintenance Insurance IDPA IDMI BLUE ACCESS [place] IDMI Advance Directives For more information, please contact: [phone] * Full Code (Latest Code Status on [...] in case of cardiopulmonary arrest Care Teams Stitcher Around Relationship Specialty Start Date End Date Jimenez Townsend MD PCP - General 08/23/20
--- OUTSIDE RECORDS SUMMARY | 2024-07-31 16:34 | XMS_ITS | Clinical Summary ---
Author Organization [facility] at the [facility] Office Center Address [address] [place] [address] Care Team Providers Care Pearl Restorer Name Role Phone Jimenez Townsend MD Primary Care Provider [phone] Allergies Active Allergy Reactions Criticality Noted Date [...] the future she should seek evaluation by Lab Head to rule out an ectopic . Finally, [...] visit Assessment & Plan (05/11/2023 2:59 PM FITNESS AND WELLNESS COORDINATOR): Not checking sugars or keeping log and reports she will not be able to due to social stressors. Declines social work. Assessment & Plan (04/14/2023 10:36 PM FITNESS AND WELLNESS COORDINATOR): No BG logs to inform care plan. [...] has very little support. 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 No SI/HI. Tearful and says mood is not good. She is aware that the severity of her symptoms warrant psychiatry involvement however she declines. Self discontinued zoloft as it was not helping but is taking Latuda. Precautions reviewed. Assessment & Plan (04/14/2023 10:58 PM FITNESS AND WELLNESS COORDINATOR): We reviewed ED precautions given her symptoms. [...] [x] Blue Team Referring Provider: Marquez Nichols [phone] [] or Medicare Insurance [x] Dating Criteria: [...] 04/13 [x] Method of feeding: breast [] Almond Blancher: [x] PP Depression Discussed: Declines further intervention at present. Consider psychiatry consult Assessment & Plan (04/14/2023 10:45 PM FITNESS AND WELLNESS COORDINATOR): Care per Dr. Everett and Magdalena. Reviewed [...] (11/21/2020): Added automatically from request for surgery [id number] History of 07/16/2020 023 Supervision of other [...] Care Team Description 07/15/2024 Orders Only [facility] Health Information Management [address] [place] [address] Jimenez Townsend MD 07/05/2024 Telephone [facility] Pediatric Genetics [facility] 2nd [place] [address] [place] [address] Maru Watts MD Test results 06/20/2024 4:55 PM FITNESS AND WELLNESS [place]IN[place] [phone] Genetic testing 06/20/2024 Orders Only [facility] Pediatric Genetics [facility] 2nd [place] [address] [place] [phone] Skye Nelson CGC Genetic testing (Primary Dx) 06/13/2024 Orders Only [facility] Health Information Management [address] [place] [address] Jimenez Townsend MD from Last 3 Months Immunizations Immunization Administration Dates Next Due Influenza, Unspecified 06/23/2023(Deferr ed: Patient Refused),03/26/2022(Deferred: Patient Refused),02/13/2022(Deferred: Patient Refused),08/03/2021(Deferred: Patient Refused) MMR 06/06/2023(Deferred: No longer needed),06/05/2023(Deferred: No longer needed) Meningococcal MCV4P (Menactra) 12/30/2015 Varicella 06/06/2023(Deferred: No longer needed),06/05/2023(Deferred: No longer needed) Surgical History Surgery Date Site/Laterality Comments SECTION 05/16/2016 - 05/15/2017 CHOLECYSTECTOMY 05/16/2020 - 05/15/2021 SECTION, LOW TRANSVERSE 05/16/2020 - 05/15/2021 REPEAT SECTION 06/03/2023 at [facility]. with tubal ligation TUBAL LIGATION 06/03/2023 at [facility]. with c/s Medical History Medical History Date Comments Genital herpes Mood swings Depression PP depression wi th first S/P repeat low transverse 01/26/2021 01/27/21 POD #1 (AB) Post S/p Elective repeat LTCS at 39w2d VSS EBL 280 mL. Hgb 11.2 on admission > 10.4 PPD#1, No signs/symptoms of acute blood loss anemia. Tolerating PO. Voiding spontaneously. Pain: Controlled with PO pain medications incision clean, dry and intact Bottle Feeding Baby doing well in the room with mom Disposition: Continue routine care 9/ Family History Medical History Relation Name [...] drink = 0.6 oz pur e alcohol) [facility] Utilities Answer Date Recorded In the past 12 months has th e electric, gas, oil, or water company threatened to shut off services in your [...] often do you attend chur ch or roman catholic services? Never 06/05/2023 Do you belong to any clubs o r organizations such as uatsdin groups, unions, fraternal or athletic groups, or [...] place to sleep or slept in a usp (including now)? No 06/05/2023 [place] Depression Scale Answer Date Recorded [place] Depression Scale Total 12 03/28/2024 The thought [...] on file Legal Sex Female 12:29 AM FITNESS AND WELLNESS COORDINATOR Gender Identity Not on file Sexual Orientation [...] N Livin g 9 9 MONE TAYLOR Adrie na Cothr on, DO Complications:None Delivery Location:[facility] Main C ampus ([facility] L AND D PROCEDURE) 2023 Term 39w 0d 0h 03m 0h 03m 3.38 kg (7 lb 7.2 oz) F C-Sec tion Combin ed Spinal /Epidu ral N Livin g 8 9 Emerso n Sonja Shea, Amanda doyle MD Complications:None Delivery Location:[facility] Main C ampus ([facility] L AND D PROCEDURE) Comments G1: [...] 1997 Foot Exam 1997 Lipid Panel 1997 DTaP/Tdap/Td Vaccine (1 - Tdap) 2008 Varicella Vaccines (1 of 2 - 13+ 2-dose series) 2010 Hepatitis B Screening 2015 Pneumococcal vaccine <65 (1 of 2 - PCV) 2016 Zoster Vaccine (1 of 2) 2016 Covid-19 Vaccine (3 - Moderna risk series) 04/16/2021 03/19/2021, 02/18/2021 Hemoglobin A1C 05/05/2023 11/03/2022, 02/0 07/2020, 04/29/2016 Cervical Cancer Screening 11/25/2023 11/24/2022 Influenza Vaccine (#1) 2024 eGFR 05/15/2024 05/15/2023, 03/16, 10/18/2022, Additional history exists Regular Well Visit/Exam 18-64 02/15/2025 02/16/2024 Depression Screening 03/28/2025 03/28/2024, 06/24/2023, 06/24/2023, Additional history exists Hepatitis C Screening Completed 11/03/2022, 021 HPV Vaccines Aged Out No longer eligi ble based on patient's age to complete this topic Procedures Procedure Name Priority Date/Time Associated Diagnosis Comments SCAN - RADIOLOGY/IMAGING 07/15/2024 MISCELLANEOUS GENETICS LAB Routine 06/20/2024 5:13 PM FITNESS AND WELLNESS COORDINATOR Genetic testing SCAN - RADIOLOGY/IMAGING 06/13/2024 9:18 PM FITNESS AND WELLNESS COORDINATOR EGFR STAT 05/15/2023 6:06 PM FITNESS AND WELLNESS COORDINATOR PAP WITH REFLEX TO HIGH RISK HPV Routine 11/24/2022 9:15 AM CDT Screening for cervical cancer HEPATITIS C ANTIBODY Routine 11/03/2022 3:17 PM CDT Positive test HEMOGLOBIN A1C Routine 11/03/2022 3:17 PM CDT Positive test from Last 3 Months or Most Recently Relevant to Health Maintenance Results * SCAN - RADIOLOGY/IMAGING (07/15/2024) Anatomical Region Laterality Modality Other Jimenez Townsend MD Final Result * GenomeSeqDx Comparator Sample to GeneDx - Miscellaneous Test (06/20/2024 5:13 PM FITNESS AND WELLNESS COORDINATOR) Test Name GenomeSeqDx Duo -mother Result 1 See Comment [facility] Comment:Parental sample sent on 06/20/2024; see Proband report once completed. Complete 20240620 [facility] Miscellaneous 06/20/2024 5:1 3 PM FITNESS AND WELLNESS COORDINATOR 06/20/2024 9:47 PM FITNESS AND WELLNESS COORDINATOR Narrative [facility] - 06/20/2024 9:50 PM FITNESS AND WELLNESS COORDINATOR Order is in [facility] Name of test to be performed:->GenomeSeqDx Comparator Sample to GeneDx Specimen type/source->3-4 ml blood in EDTA Maru Watts MD LAB GENETIC TESTING Fi nal Result J[facility] [place] [address] * SCAN - RADIOLOGY/IMAGING (06/13/2024 9:18 PM FITNESS AND WELLNESS COORDINATOR) Anatomical Region Laterality Modality Other us Jimenez Townsend MD Final Result * eGFR (05/15/2023 6:06 PM FITNESS AND WELLNESS COORDINATOR) eGFR 141 mL/min/1. 73 m2 [facility] Comment: Interpretive Data Reference Interval Normal >/= [...] was last reviewed 2021. Testing performed by: [facility], [address] [place] [address]., [id number] Blood 05/15/2023 6:06 PM FITNESS AND WELLNESS COORDINATOR 05/15/2023 6:09 PM FITNESS AND WELLNESS COORDINATOR Nasreen Ruiz MD LAB BLOOD ORDERABLES Fin al Result JUNG [address] [facility] Department [place] [address] * Pap with reflex to High Risk HPV and Genotyping (Cytology Component) (11/24/2022 9:15 AM CDT) Thin prep (Pap test) 11/24/2022 9:15 AM CDT 11/29/2022 9:15 AM CDT Narrative PATHOLOGY [facility] - 12/02/2022 9:[address] [facility] Department of Pathology [address] [place], [place] [id number] Final Report Note to Patients: This report [...] the details. Patient Name: PEDRO STRICKLAND Address: [address] [place] [address] Gender: F : 1995 (Age: 27) Service: Location: N : [id number] Hospital #: [id number] Patient Type: [facility] SPECIMEN Taken: 11/24/2022 Received: 11/29/2022 Accessioned:: 11/30/2022 Reported: 12/02/2022 Physician(s): Dr. Marquez Nichols M.D. [facility] Diagnosis: SOURCE OF SPECIMEN Imaged Thinprep Pap Test w/ Reflex HPV - Bumper Machine Operator Cytologic Material: STATEMENT OF ADEQUACY - Satisfactory for evaluation; endocervical/transformation zone component present GENERAL CATEGORIZATION: - Negative for intraepithelial lesion or malignancy INTERPRETATION: - Fungal organisms present, morphologically consistent with erickson species - Numerous inflammatory cells present LUZ Ramos(ASCP) Report Electronically Reviewed and Signed Out By LUZ Ramos(ASCP) 12/02/2022 09:50:36Specimen(s) Received: A: Imaged Thinprep Pap Test w/ Reflex HPV - Bumper Machine Operator Cytologic Material Clinical History: Last Menstrual Period: [...] determined by the Surgical Pathology Department at [facility] as part of an ongoing air quality engineer program and in compliance with federally mandated [...] characteristics determined by the Surgical Pathology Department [facility]. It has not been cleared or approved by the U. S. Food and Drug Administration. Marquez Nichols MD LAB CYTOLOGY ORDERABLES Fi nal Result Performing Organization Address City/State/[facility] Co de Phone Number PATHOLOGY [facility] * Hepatitis C antibody (11/03/2022 3:17 PM [...] GENERAL ORDERABLES Final Result Performing Organization Address City/State/[facility] Co de Phone Number JUNG [address] [facility] [place] [address] * Hemoglobin A1c (11/03/2022 3:17 PM CDT) Hgb A1C 5.5 4.0 - 5.6 % JUNG Comment:Testing performed by : [address] [address] Estimated Average Glucose 111 mg/dL J[facility]G Comment: The ADA recommends reporting an estimated Average Glucose (eAG) with all Hemoglobin A1c results using the equation derived from a study of 507 normal and diabetic adults. Minority populations were underrepresented and children were not included. (Diabetes Care 31:5666-5768, 2008). The eAG is not equivalent to a fasting glucose. Testing performed by: [address] [address] Blood 11/03/2022 3:17 PM CDT 11/03/2022 4:30 PM CDT us Marquez Nichols MD LAB BLOOD ORDERABLES Final Result Performing Organization Address [facility] Co de Phone Number JUNG [address] [place] [address] from Last 3 Months or Most Recently Relevant to Health Maintenance Insurance IDNV IDNV BLUE ACCESS [place] Advance Directives For more information, please contact: [phone] * Full Code (Latest Code Status on [...] in case of cardiopulmonary arrest Care Teams Pearl Restorer Relationship Specialty Start Date End Date Jimenez Townsend MD PCP - General 08/23/20
--- OUTSIDE RECORDS SUMMARY | 2024-07-31 16:34 | XMS_ITS | Encounter Summary ---
Author Organization [facility] Facility Care Team Providers Care Matte Cutter Name Role Phone Jimenez Townsend MD Primary Care Provider [phone] Jimenez Townsend MD Primary Care Provider [phone] Encounter Details Date Type Department Care Team (Latest Contact Info) Description 11/07/2016 Orders Only [facility]INCON[facility] ProviderSandra MD [address] [place] [address] Social History Tobacco Use Types Packs/Day Years Used Date Smoking Tobacco: Never Assessed Comments Unknown Sex and Gender Information Value Date Recorded Sex Assigned at Not on file Legal Sex Female 12:29 AM COMPLAINT EVALUATION OFFICER Gender Identity Not on file Sexual Orientation [...] COVID: Suspected 05/15/2023 05/15/2023 05/15/2023 6:50 PM COMPLAINT EVALUATION OFFICER documented as of this encounter Care Teams Matte Cutter Relationship Specialty Start Date End Date Jimenez Townsend MD PCP - General Family Medicine 08/07/18 08/22/20 Jimenez Townsend MD PCP - General 08/23/20 documented as of this encounter
--- OUTSIDE RECORDS SUMMARY | 2024-07-31 16:34 | XMS_ITS | Encounter Summary ---
Author Organization [facility] Facility Care Team Providers Care Stripper Shovel Operator Name Role Phone Jimenez Townsend MD Primary Care Provider [phone] Jimenez Townsend MD Primary Care Provider [phone] Encounter Details Date Type Department Care Team (Latest Contact Info) Description 10/28/2016 Orders Only [facility] CLINCON[facility] ProviderSandra MD [address] [place] [address] Social History Tobacco Use Types Packs/Day Years Used Date Smoking Tobacco: Never Assessed Comments Unknown Sex and Gender Information Value Date Recorded Sex Assigned at Not on file Legal Sex Female 12:29 AM PIANO ASSEMBLER Gender Identity Not on file Sexual [...] COVID: Suspected 05/15/2023 05/15/2023 05/15/2023 6:50 PM PIANO ASSEMBLER documented as of this encounter Care Teams Stripper Shovel Operator Relationship Specialty Start Date End Date Jimenez Townsend MD PCP - General Family Medicine 08/07/18 08/22/20 Jimenez Townsend MD PCP - General 08/23/20 documented as of this encounter
--- OUTSIDE RECORDS SUMMARY | 2024-07-31 18:04 | XMS_ITS | Referral Summary ---
Author Organization [facility] at the [facility] Office Center Address [address] [place] [address] Care Team Providers Care Systems Test Analyst Name Role Phone Jimenez Townsend MD Primary Care Provider [phone] Encounters Date Type Department Care Team Description 07/15/2024 Orders Only [facility] Health Information Management [address] [place] [address] Jimenez Townsend MD 07/05/2024 Telephone [facility] Pediatric Genetics [facility] 2nd [place] [phone] Maru Watts MD Test results 06/20/2024 4:55 PM [place] [phone] Genetic testing 06/20/2024 Orders Only [facility] Pediatric Genetics [address] [place] [address] Skye Nelson CGC Genetic testing (Primary Dx) 06/13/2024 Orders Only [facility] Health Information Management [address] [place] [address] Jimenez Townsend MD from Last 3 Months [...] the future she should seek evaluation by Manager Cardiac Cath to rule out an ectopic . Finally, [...] visit Assessment & Plan (05/11/2023 2:59 PM CHAINMAN): Not checking sugars or keeping log and reports she will not be able to due to social stressors. Declines social work. Assessment & Plan (04/14/2023 10:36 PM CHAINMAN): No BG logs to inform care plan. [...] has very little support. 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 No SI/HI. Tearful and says mood is not good. She is aware that the severity of her symptoms warrant psychiatry involvement however she declines. Self discontinued zoloft as it was not helping but is taking Latuda. Precautions reviewed. Assessment & Plan (04/14/2023 10:58 PM CHAINMAN): We reviewed ED precautions given her symptoms. [...] [x] Blue Team Referring Provider: Marquez Nichols [phone] [] or Medicare Insurance [x] Dating Criteria: [...] 04/13 [x] Method of feeding: breast [] Broiler Chef Or Cook: [x] PP Depression Discussed: Declines further intervention at present. Consider psychiatry consult Assessment & Plan (04/14/2023 10:45 PM CHAINMAN): Care per Dr. Everett and Magdalena. Reviewed [...] (11/21/2020): Added automatically from request for surgery [id number] History of 07/16/2020 023 Supervision of other [...] drink = 0.6 oz pur e alcohol) [facility] Rewalonities Answer Date Recorded In the past 12 months has [employer], [employer], oil, or water [employer] threatened to shut off services in your [...] often do you attend chur ch or judaism services? Never 06/05/2023 Do you belong to any clubs o r organizations such as buddhism groups, unions, fraternal or athletic groups, or [...] place to sleep or slept in a mcc (including now)? No 06/05/2023 Marcus Depression Scale Answer Date Recorded Marcus Depression Scale Total 12 03/28/2024 The thought [...] on file Legal Sex Female 12:29 AM CHAINMAN Gender Identity Not on file Sexual Orientation [...] MISCELLANEOUS GENETICS LAB Routine 06/20/2024 5:13 PM CHAINMAN Genetic testing SCAN - RADIOLOGY/IMAGING 06/13/2024 9:18 PM CHAINMAN EGFR STAT 05/15/2023 6:06 PM CHAINMAN PAP WITH REFLEX TO HIGH RISK HPV [...] GeneDx - Miscellaneous Test (06/20/2024 5:13 PM CHAINMAN) Test Name GenomeSeqDx Duo -mother Result 1 See Comment [facility] Comment:Parental sample sent on 06/20/2024; see Proband report once completed. Complete 20240620 [facility] Miscellaneous 06/20/2024 5:1 3 PM CHAINMAN 06/20/2024 9:47 PM CHAINMAN Narrative [facility] - 06/20/2024 9:50 PM CHAINMAN Order is in [facility] Name of test to be performed:->GenomeSeqDx Comparator Sample to GeneDx Specimen type/source->3-4 ml blood in EDTA us Maru Watts MD LAB GENETIC TESTING Fi nal Result [facility] Department [place] [address] * SCAN - RADIOLOGY/IMAGING (06/13/2024 9:18 PM CHAINMAN) Anatomical Region Laterality Modality Other us Jimenez Townsend MD Final Result * eGFR (05/15/2023 6:06 PM CHAINMAN) eGFR 141 mL/min/1. 73 m2 [facility] Comment: Interpretive Data Reference Interval Normal >/= [...] reviewed 2021. Testing performed by: [facility], [address] [place] [address], [place]., [address] Blood 05/15/2023 6:06 PM CHAINMAN 05/15/2023 6:09 PM CHAINMAN us Nasreen Ruiz MD LAB BLOOD ORDERABLES Fin al Result JUNG [address] [facility] Department [place] [address] * Pap with reflex to High Risk HPV and Genotyping (Cytology Component) (11/24/2022 9:15 AM CDT) Thin prep (Pap test) 11/24/2022 9:15 AM CDT 11/29/2022 9:15 AM CDT Narrative PATHOLOGY [facility] - 12/02/2022 9:50 AM CDT [facility] Department of Pathology [address] [place], [place] [id number] Final Report Note to Patients: This report [...] details. Patient Name: PEDRO STRICKLAND Address: [address] [place] [address] Gender: F : 1995 (Age: 27) Service: Location: N : [id number] Hospital #: [id number] Patient Type: [facility] SPECIMEN Taken: 11/24/2022 Received: 11/29/2022 Accessioned:: 11/30/2022 Reported: 12/02/2022 Physician(s): Dr. Marquez Nichols M.D. [facility] Diagnosis: SOURCE OF SPECIMEN Imaged Thinprep Pap Test w/ Reflex HPV - Flumer Cytologic Material: STATEMENT OF ADEQUACY - Satisfactory for evaluation; endocervical/transformation zone component present GENERAL CATEGORIZATION: - Negative for intraepithelial lesion or malignancy INTERPRETATION: - Fungal organisms present, morphologically consistent with erickson species - Numerous inflammatory cells present LUZ Ramos(ASCP) Report Electronically Reviewed and Signed Out By LUZ Ramos(ASCP) 12/02/2022 09:50:36Specimen(s) Received: A: Imaged Thinprep Pap Test w/ Reflex HPV - Flumer Cytologic Material Clinical History: Last Menstrual Period: [...] determined by the Surgical Pathology Department at [facility] as part of an ongoing supervisor vendor quality program and in compliance with federally [...] characteristics determined by the Surgical Pathology Department [facility]. It has not been cleared or approved by the U. S. Food and Drug Administration. Marquez Nichols MD LAB CYTOLOGY ORDERABLES [facility] Result PATHOLOGY [facility] * Hepatitis C antibody (11/03/2022 [...] GENERAL ORDERABLES Final Result Performing Organization Address [facility] Co de Phone Number JUNG [address] [place] [address] * Hemoglobin A1c (11/03/2022 3:17 PM CDT) Hgb A1C 5.5 4.0 - 5.6 % JUNG Comment:Testing performed by : [address] [address] Estimated Average Glucose 111 mg/dL JUNG Comment: The ADA recommends reporting an estimated Average Glucose (eAG) with all Hemoglobin A1c results using the equation derived from a study of 507 normal and diabetic adults. Minority populations were underrepresented and children were not included. (Diabetes Care 31:7919-6664, 2008). The eAG is not equivalent to a fasting glucose. Testing performed by: [facility], [address] [place] [address]., [address] Blood 11/03/2022 3:17 PM CDT 11/03/2022 4:30 PM CDT Marquez Nichols MD LAB BLOOD ORDERABLES Final Result Performing Organization Address City/[facility] Co de Phone Number [facility] [address] [place] [address] from Last 3 Months or Most Recently Relevant to Health Maintenance Insurance IDPA IDOH BLUE ACCESS [place] Advance Directives For more information, please contact: [phone] * Full Code (Latest Code Status on [...] in case of cardiopulmonary arrest Care Teams Systems Test Analyst Relationship Specialty Start Date End Date Jimenez Townsend MD PCP - General 08/23/20
--- OUTSIDE RECORDS SUMMARY | 2024-07-31 18:05 | XMS_ITS | Clinical Summary ---
Author Organization [facility] Care Team Providers Care Set Up Operator Tool Name Role Phone Unavailable Primary Care Provider [...]
--- OUTSIDE RECORDS SUMMARY | 2024-07-31 18:05 | XMS_ITS | Encounter Summary ---
Author Organization [facility] Facility Care Team Providers Care Cook Apprentice Pastry Name Role Phone Jimenez Townsend MD Primary Care Provider [phone] Jimenez Townsend MD Primary Care Provider [phone] Encounter Details Date Type Department Care Team (Latest Contact Info) Description 11/07/2016 Orders Only [facility] CLINCONV ProviderSandra MD [address] [place] [address] Social History Tobacco Use Types Packs/Day Years Used Date Smoking Tobacco: Never Assessed Comments Unknown Sex and Gender Information Value Date Recorded Sex Assigned at Not on file Legal Sex Female 12:29 AM CRUSHER OPERATOR Gender Identity Not on file Sexual [...] COVID: Suspected 05/15/2023 05/15/2023 05/15/2023 6:50 PM CRUSHER OPERATOR documented as of this encounter Care Teams Cook Apprentice Pastry Relationship Specialty Start Date End Date Jimenez Townsend MD PCP - General Family Medicine 08/07/18 08/22/20 Jimenez Townsend MD PCP - General 08/23/20 documented as of this encounter
--- OUTSIDE RECORDS SUMMARY | 2024-07-31 18:05 | XMS_ITS | Encounter Summary ---
Author Organization [facility] Facility Care Team Providers Care Radiological Technologist Name Role Phone Jimenez Townsend MD Primary Care Provider [phone] Jimenez Townsend MD Primary Care Provider [phone] Encounter Details Date Type Department Care Team (Latest Contact Info) Description 10/28/2016 Orders Only [facility] CLIN[facility] ProviderSandra MD [address] [place] [address] Social History Tobacco Use Types Packs/Day Years Used Date Smoking Tobacco: Never Assessed Comments Unknown Sex and Gender Information Value Date Recorded Sex Assigned at Not on file Legal Sex Female 12:29 AM CUPOLA HOIST OPERATOR Gender Identity Not on file Sexual [...] COVID: Suspected 05/15/2023 05/15/2023 05/15/2023 6:50 PM CUPOLA HOIST OPERATOR documented as of this encounter Care Teams Radiological Technologist Relationship Specialty Start Date End Date Jimenez Townsend MD PCP - General Family Medicine 08/07/18 08/22/20 Jimenez Townsend MD PCP - General 08/23/20 documented as of this encounter
--- OUTSIDE RECORDS SUMMARY | 2024-07-31 18:05 | XMS_ITS | Encounter Summary ---
Author Organization [facility] Facility Care Team Providers Care Research Phlebotomist Name Role Phone Jimenez Townsend MD Primary Care Provider [phone] Jimenez Townsend MD Primary Care Provider [phone] Encounter Details Date Type Department Care Team (Latest Contact Info) Description 11/10/2016 Orders Only [facility] CLINCON[facility] ProviderSandra MD [address] [place] [address] Social History Tobacco Use Types Packs/Day Years Used Date Smoking Tobacco: Never Assessed Comments Unknown Sex and Gender Information Value Date Recorded Sex Assigned at Not on file Legal Sex Female 12:29 AM LATHE OPERATOR CONTACT LENS Gender Identity Not on file Sexual Orientation [...] COVID: Suspected 05/15/2023 05/15/2023 05/15/2023 6:50 PM LATHE OPERATOR CONTACT LENS documented as of this encounter Care Teams Research Phlebotomist Relationship Specialty Start Date End Date Jimenez Townsend MD PCP - General Family Medicine 08/07/18 08/22/20 Jimenez Townsend MD PCP - General 08/23/20 documented as of this encounter
--- OUTSIDE RECORDS SUMMARY | 2024-07-31 18:05 | XMS_ITS | Encounter Summary ---
Author Organization [facility] Facility Care Team Providers Care Battery Starter Name Role Phone Jimenez Townsend MD Primary Care Provider [phone] Jimenez Townsend MD Primary Care Provider Encounter Details Date Type Department Care Team (Latest Contact Info) Description 09/17/2016 Orders Only [facility] CLINCON[facility] ProviderSandra MD [address] [place] [address] Social History Tobacco Use Types Packs/Day Years Used Date Smoking Tobacco: Never Assessed Comments Unknown Sex and Gender Information Value Date Recorded Sex Assigned at Not on file Legal Sex Female 12:29 AM TRAFFIC CIRCUIT ENGINEER Gender Identity Not on file Sexual Orientation [...] COVID: Suspected 05/15/2023 05/15/2023 05/15/2023 6:50 PM TRAFFIC CIRCUIT ENGINEER documented as of this encounter Care Teams Battery Starter Relationship Specialty Start Date End Date Jimenez Townsend MD PCP - General Family Medicine 08/07/18 08/22/20 Jimenez Townsend MD PCP - General 08/23/20 documented as of this encounter
--- OUTSIDE RECORDS SUMMARY | 2024-07-31 18:05 | XMS_ITS | Encounter Summary ---
Author Organization [facility] Facility Care Team Providers Care Clarifier Operator Helper Name Role Phone Jimenez Townsend MD Primary Care Provider [phone] Jimenez Townsend MD Primary Care Provider Encounter Details Date Type Department Care Team (Latest Contact Info) Description 10/13/2016 Orders Only [facility] CLINCONV ProviderSandra MD [address] [place], [place] [id number] Social History Tobacco Use Types Packs/Day Years Used Date Smoking Tobacco: Never Assessed Comments Unknown Sex and Gender Information Value Date Recorded Sex Assigned at Not on file Legal Sex Female 12:29 AM SANITATION OFFICER Gender Identity Not on file Sexual [...] COVID: Suspected 05/15/2023 05/15/2023 05/15/2023 6:50 PM SANITATION OFFICER documented as of this encounter Care Teams Clarifier Operator Helper Relationship Specialty Start Date End Date Jimenez Townsend MD PCP - General Family Medicine 08/07/18 08/22/20 Jimenez Townsend MD PCP - General 08/23/20 documented as of this encounter
--- OUTSIDE RECORDS SUMMARY | 2024-07-31 18:05 | XMS_ITS | Clinical Summary ---
Author Organization [facility] Office Center Address [address] [place] [address] Care Team Providers Care Neurology Professor Name Role Phone Jimenez Townsend MD Primary Care Provider [phone] Allergies Active Allergy Reactions Criticality Noted Date [...] the future she should seek evaluation by Lead Software Test Engineer to rule out an ectopic . Finally, [...] visit Assessment & Plan (05/11/2023 2:59 PM POST ADOPTION COORDINATOR): Not checking sugars or keeping log and reports she will not be able to due to social stressors. Declines social work. Assessment & Plan (04/14/2023 10:36 PM POST ADOPTION COORDINATOR): No BG logs to inform care [...] has very little support. 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 No SI/HI. Tearful and says mood is not good. She is aware that the severity of her symptoms warrant psychiatry involvement however she declines. Self discontinued zoloft as it was not helping but is taking Latuda. Precautions reviewed. Assessment & Plan (04/14/2023 10:58 PM POST ADOPTION COORDINATOR): We reviewed ED precautions given her [...] [x] Blue Team Referring Provider: Marquez Nichols [phone] [] or Medicare Insurance [x] Dating Criteria: [...] 04/13 [x] Method of feeding: breast [] Feltmaker And Weigher: [x] PP Depression Discussed: Declines further intervention at present. Consider psychiatry consult Assessment & Plan (04/14/2023 10:45 PM POST ADOPTION COORDINATOR): Care per Dr. Everett and Magdalena. [...] (11/21/2020): Added automatically from request for surgery [id number] History of 07/16/2020 023 Supervision of other [...] Department Care Team Description 07/15/2024 Orders Only [facility] Health Information Management [address] [place] [address] Jimenez Townsend MD 07/05/2024 Telephone [facility] Pediatric Genetics [facility] [address] [place] [address] [place] [phone] Maru Watts MD Test results 06/20/2024 4:55 PM POST [place]OPTION [place] [phone] Genetic testing 06/20/2024 Orders Only [facility] Pediatric Genetics [facility] [address] [place] [address] [place] [phone] Skye Nelson CGC Genetic testing (Primary Dx) 06/13/2024 Orders Only [facility] Health Information Management [address] [place] [address] Jimenez Townsend MD from Last 3 Months [...] 05/16/2020 - 05/15/2021 REPEAT SECTION 06/03/2023 at [facility]. with tubal ligation TUBAL LIGATION 06/03/[address] [facility]. with c/s Medical History Medical [...] drink = 0.6 oz pur e alcohol) [facility] Utilities Answer Date Recorded In the past [...] often do you attend chur ch or mandaeism services? Never 06/05/2023 Do you belong to any clubs o r organizations such as christian groups, unions, fraternal or athletic groups, or [...] place to sleep or slept in a halfway (including now)? No 06/05/2023 Stearns Depression Scale Answer Date Recorded Stearns Depression Scale Total 12 03/28/2024 The thought [...] on file Legal Sex Female 12:29 AM POST ADOPTION COORDINATOR Gender Identity Not on file Sexual [...] Adrie na Cothr on, DO Complications:None Delivery Location:[facility] Main C ampus (MHE L AND D PROCEDURE) 2023 Term 39w 0d 0h 03m 0h 03m 3.38 kg (7 lb 7.2 oz) F C-Sec tion Combin ed Spinal /Epidu ral N Livin g 8 9 Emerso n Sonja Shea, Amanda doyle MD Complications:None Delivery Location:[facility] Main C ampus ([facility] L AND D PROCEDURE) Comments G1: failure [...] MISCELLANEOUS GENETICS LAB Routine 06/20/2024 5:13 PM POST ADOPTION COORDINATOR Genetic testing SCAN - RADIOLOGY/IMAGING 06/13/2024 9:18 PM POST ADOPTION COORDINATOR EGFR STAT 05/15/2023 6:06 PM POST ADOPTION COORDINATOR PAP WITH REFLEX TO HIGH RISK [...] GeneDx - Miscellaneous Test (06/20/2024 5:13 PM POST ADOPTION COORDINATOR) Test Name GenomeSeqDx Duo -mother Result 1 See Comment [facility] Comment:Parental sample sent on 06/20/2024; see Proband report once completed. Complete [id number] [facility] Miscellaneous 06/20/2024 5:1 3 PM POST ADOPTION COORDINATOR 06/20/2024 9:47 PM POST ADOPTION COORDINATOR Narrative [facility] - 06/20/2024 9:50 PM POST ADOPTION COORDINATOR Order is in [facility] Name of test to be performed:->GenomeSeqDx Comparator Sample to GeneDx Specimen type/source->3-4 ml blood in EDTA Maru Watts MD LAB GENETIC TESTING Fi nal Result [facility] Department [place] [address] * SCAN - RADIOLOGY/IMAGING (06/13/2024 9:18 PM POST ADOPTION COORDINATOR) Anatomical Region Laterality Modality Other us Jimenez Townsend MD Final Result * eGFR (05/15/2023 6:06 PM POST ADOPTION COORDINATOR) eGFR 141 mL/min/1. 73 m2 AUSTENJERONIMO [...] reviewed 2021. Testing performed by: [facility], [address] [place] [address]., [address] Blood 05/15/2023 6:06 PM POST ADOPTION COORDINATOR 05/15/2023 6:09 PM POST ADOPTION COORDINATOR Nasreen Ruiz MD LAB BLOOD ORDERABLES Fin al Result JUNG [address] [facility] Department [place] [address] * Pap with reflex to High Risk HPV and Genotyping (Cytology Component) (11/24/2022 9:15 AM CDT) Thin prep (Pap test) 11/24/2022 9:15 AM CDT 11/29/2022 9:15 AM CDT Narrative PATHOLOGY [facility] - 12/02/2022 9:50 AM CDT [facility] Department of Pathology [address] [place], [place] [id number] Final Report Note to Patients: This report [...] the details. Patient Name: PEDRO STRICKLAND Address: [address] [place] [address] Gender: F : 1995 (Age: 27) Service: Location: N : [id number] Hospital #: [id number] Patient Type: [facility] SPECIMEN Taken: 11/24/2022 Received: 11/29/2022 Accessioned:: 11/30/2022 Reported: 12/02/2022 Physician(s): Dr. Marquez Nichols M.D. [facility] Diagnosis: SOURCE OF SPECIMEN Imaged Thinprep Pap Test w/ Reflex HPV - Chief Technician X Ray Cytologic Material: STATEMENT OF ADEQUACY - Satisfactory for evaluation; endocervical/transformation zone component present GENERAL CATEGORIZATION: - Negative for intraepithelial lesion or malignancy INTERPRETATION: - Fungal organisms present, morphologically consistent with erickson species - Numerous inflammatory cells present LUZ Ramos(ASCP) Report Electronically Reviewed and Signed Out By LUZ Ramos(ASCP) 12/02/2022 09:50:36Specimen(s) Received: A: Imaged Thinprep Pap Test w/ Reflex HPV - Chief Technician X Ray Cytologic Material Clinical History: Last Menstrual Period: [...] determined by the Surgical Pathology Department at [facility] as part of an ongoing senior software quality engineer program and in compliance with [...] characteristics determined by the Surgical Pathology Department [facility]. It has not been cleared or approved by the U. S. Food and Drug Administration. Marquez Nichols MD LAB CYTOLOGY ORDERABLES Fi nal Result Performing Organization Address City/State/[facility] Co de Phone Number PATHOLOGY [facility] * Hepatitis C antibody (11/03/2022 3:17 [...] GENERAL ORDERABLES Final Result Performing Organization Address City/State/[facility] Co de Phone Number J[facility]G [address] [facility] [place] [address] * Hemoglobin A1c (11/03/2022 3:17 PM CDT) Hgb A1C 5.5 4.0 - 5.6 % JUNG Comment:Testing performed by : [address] [address] Estimated Average Glucose 111 mg/dL J[facility]G Comment: The ADA recommends reporting an estimated Average Glucose (eAG) with all Hemoglobin A1c results using the equation derived from a study of 507 normal and diabetic adults. Minority populations were underrepresented and children were not included. (Diabetes Care 31:8764-8356, 2008). The eAG is not equivalent to a fasting glucose. Testing performed by: [address] [address] Blood 11/03/2022 3:17 PM CDT 11/03/2022 4:30 PM CDT us Marquez Nichols MD LAB BLOOD ORDERABLES Final Result Performing Organization Address [facility] Co de Phone Number JUNG [address] [place] [address] from Last 3 Months or Most Recently Relevant to Health Maintenance Insurance [employer] [place] Advance Directives For more information, please contact: [phone] * Full Code (Latest Code Status on [...] in case of cardiopulmonary arrest Care Teams Neurology Professor Relationship Specialty Start Date End Date Jimenez Townsend MD PCP - General 08/23/20
--- OUTSIDE RECORDS SUMMARY | 2024-07-31 18:05 | XMS_ITS | Encounter Summary ---
Author Organization [facility] Facility Care Team Providers Care Prehemmer Name Role Phone Jimenez Townsend MD Primary Care Provider [phone] Jimenez Townsend MD Primary Care Provider [phone] Encounter Details Date Type Department Care Team (Latest Contact Info) Description 09/15/2016 Orders Only [facility] CLINCONV ProviderSandra MD [address] [place] [address] Social History Tobacco Use Types Packs/Day Years Used Date Smoking Tobacco: Never Assessed Comments Unknown Sex and Gender Information Value Date Recorded Sex Assigned at Not on file Legal Sex Female 12:29 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
== END 2024-07-31 16:58 | disposition left against medical advice (07) ==
LOC: ANHED 17:01
PROVIDERS: Emergency Provider Student in an Organized Health Care Education/Training Program; PCP Family Medicine
DX: S69.91XA Unspecified injury of right wrist, hand and finger(s), initial encounter (principal); W23.1XXA Caught, crushed, jammed, or pinched between stationary objects, initial encounter
CPT/HCPCS: 73140; 99199

== ENCOUNTER 2024-08-19 14:53 | Emergency (ER) | payer BC, MEDICAID, SELFPAY ==
[2024-08-19 14:54] VITALS: BP 113/71; PULSE 64; RESP 16; TEMP 37; O2SAT 100
--- OUTSIDE RECORDS SUMMARY | 2024-08-19 14:55 | XMS_ITS | Encounter Summary ---
Author Organization [facility] Facility Care Team Providers Care Research Biostatistician Name Role Phone Jimenez Townsend MD Primary Care Provider [phone] Jimenez Townsend MD Primary Care Provider [phone] Encounter Details Date Type Department Care Team (Latest Contact Info) Description 09/17/2016 Orders Only [facility] CLINCONV ProviderSandra MD [address] [place] [address] Social History Tobacco Use Types Packs/Day Years Used Date Smoking Tobacco: Never Assessed Comments Unknown Sex and Gender Information Value Date Recorded Sex Assigned at Not on file Legal Sex Female 12:29 AM EGG PACKER Gender Identity Not on file Sexual Orientation [...] COVID: Suspected 05/15/2023 05/15/2023 05/15/2023 6:50 PM EGG PACKER documented as of this encounter Care Teams Research Biostatistician Relationship Specialty Start Date End Date Jimenez Townsend MD PCP - General Family Medicine 08/07/18 08/22/20 Jimenez Townsend MD PCP - General 08/23/20 documented as of this encounter
--- OUTSIDE RECORDS SUMMARY | 2024-08-19 14:55 | XMS_ITS | Clinical Summary ---
Author Organization [facility] Care Team Providers Care Long Term Care Social Worker Name Role Phone Unavailable Primary Care Provider [...]
--- OUTSIDE RECORDS SUMMARY | 2024-08-19 14:55 | XMS_ITS | Encounter Summary ---
Author Organization [facility] Facility Care Team Providers Care Power Marketer Name Role Phone Jimenez Townsend MD Primary Care Provider [phone] Jimenez Townsend MD Primary Care Provider [phone] Encounter Details Date Type Department Care Team (Latest Contact Info) Description 11/10/2016 Orders Only [facility] CLINCONV ProviderSandra MD [address] [place] [address] Social History Tobacco Use Types Packs/Day Years Used Date Smoking Tobacco: Never Assessed Comments Unknown Sex and Gender Information Value Date Recorded Sex Assigned at Not on file Legal Sex Female 12:29 AM SECURITY DELIVERY SPECIALIST Gender Identity Not on file Sexual Orientation [...] COVID: Suspected 05/15/2023 05/15/2023 05/15/2023 6:50 PM SECURITY DELIVERY SPECIALIST documented as of this encounter Care Teams Power Marketer Relationship Specialty Start Date End Date Jimenez Townsedn MD PCP - General Family Medicine 08/07/18 08/22/20 Jimenez Townsend MD PCP - General 08/23/20 documented as of this encounter
--- OUTSIDE RECORDS SUMMARY | 2024-08-19 14:55 | XMS_ITS | Encounter Summary ---
Author Organization [facility] Facility Care Team Providers Care Security Nurse Name Role Phone Jimenez Townsend MD Primary Care Provider [phone] Jimenez Townsend MD Primary Care Provider [phone] Encounter Details Date Type Department Care Team (Latest Contact Info) Description 10/13/2016 Orders Only [facility] CLINCONV ProviderSandra MD [address] [place] [address] Social History Tobacco Use Types Packs/Day Years Used Date Smoking Tobacco: Never Assessed Comments Unknown Sex and Gender Information Value Date Recorded Sex Assigned at Not on file Legal Sex Female 12:29 AM INSPECTOR TIMERS Gender Identity Not on file Sexual Orientation [...] COVID: Suspected 05/15/2023 05/15/2023 05/15/2023 6:50 PM INSPECTOR TIMERS documented as of this encounter Care Teams Security Nurse Relationship Specialty Start Date End Date Jimenez Townsend MD PCP - General Family Medicine 08/07/18 08/22/20 Jimenez Townsend MD PCP - General 08/23/20 documented as of this encounter
--- OUTSIDE RECORDS SUMMARY | 2024-08-19 14:55 | XMS_ITS | Clinical Summary ---
Author Organization [facility] at the [facility] Office Center Address [address] [place] [address] Care Team Providers Care Watch Inspector Name Role Phone Jimenez Townsend MD Primary Care Provider [phone] Allergies Active Allergy Reactions Criticality Noted Date [...] the future she should seek evaluation by Acid Dipper to rule out an ectopic . Finally, [...] visit Assessment & Plan (05/11/2023 2:59 PM COMPACTING MACHINE OPERATOR/TENDER): Not checking sugars or keeping log and reports she will not be able to due to social stressors. Declines social work. Assessment & Plan (04/14/2023 10:36 PM COMPACTING MACHINE OPERATOR/TENDER): No BG logs to inform care plan. [...] has very little support. 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 No SI/HI. Tearful and says mood is not good. She is aware that the severity of her symptoms warrant psychiatry involvement however she declines. Self discontinued zoloft as it was not helping but is taking Latuda. Precautions reviewed. Assessment & Plan (04/14/2023 10:58 PM COMPACTING MACHINE OPERATOR/TENDER): We reviewed ED precautions given her symptoms. [...] [x] Blue Team Referring Provider: Marquez Nichols [phone] [] or Medicare Insurance [x] Dating Criteria: [...] 04/13 [x] Method of feeding: breast [] Sinter Feeder: [x] PP Depression Discussed: Declines further intervention at present. Consider psychiatry consult Assessment & Plan (04/14/2023 10:45 PM COMPACTING MACHINE OPERATOR/TENDER): Care per Dr. Everett and Magdalena. Reviewed [...] (11/21/2020): Added automatically from request for surgery [id number] History of 07/16/2020 023 Supervision of other [...] of multiple sites of head and neck 09/18/1903/19/2020 Chorioamnionitis, delivered, current hospitalization 09/18/2019 03/19/2020 Lymphangitis [...] Department Care Team Description 07/15/2024 Orders Only [facility] Health Information Management [address] [place] [address] Jimenez Townsend MD 07/05/2024 Telephone [facility] Pediatric Genetics [facility] 2nd [place] [address] [place] [phone] Maru Watts MD Test results 06/20/2024 4:55 PM COMPACTING MACHINE OPERATOR/[place] [phone] Genetic testing 06/20/2024 Orders Only [facility] Pediatric Genetics [facility] 2nd [place] [address] [place] [phone] Skye Nelson CGC Genetic testing (Primary Dx) 06/13/2024 Orders Only [facility] Health Information Management [address] [place] [address] Jimenez Townsend MD from Last 3 Months [...] - 05/15/2021 REPEAT SECTION 06/03/2023 at [facility]. with tubal ligation TUBAL LIGATION 06/03/2023 at [facility]. with c/s Medical History Medical [...] = 0.6 oz pur e alcohol) [facility] Utilities Answer Date Recorded In the [...] often do you attend chur ch or sikh services? Never 06/05/2023 Do you belong to any clubs o r organizations such as amish groups, unions, fraternal or athletic groups, or [...] to sleep or slept in a senior care (including now)? No 06/05/2023 [place] Depression Scale Answer Date Recorded [place] Depression Scale Total 12 03/28/2024 The thought [...] on file Legal Sex Female 12:29 AM COMPACTING MACHINE OPERATOR/TENDER Gender Identity Not on file Sexual Orientation [...] Adrie na Cothr on, DO Complications:None Delivery Location:[facility] ([facility]HE L AND D PROCEDURE) 2023 Term 39w 0d 0h 03m 0h 03m 3.38 kg (7 lb 7.2 oz) F C-Sec tion Combin ed Spinal /Epidu ral N Livin g 8 9 Emerso n Amanda Aceves MD Complications:None Delivery Location:[facility] Main [facility] ([facility] L AND D PROCEDURE) Comments G1: [...] MISCELLANEOUS GENETICS LAB Routine 06/20/2024 5:13 PM COMPACTING MACHINE OPERATOR/TENDER Genetic testing SCAN - RADIOLOGY/IMAGING 06/13/2024 9:18 PM COMPACTING MACHINE OPERATOR/TENDER EGFR STAT 05/15/2023 6:06 PM COMPACTING MACHINE OPERATOR/TENDER PAP WITH REFLEX TO HIGH RISK HPV [...] GeneDx - Miscellaneous Test (06/20/2024 5:13 PM COMPACTING MACHINE OPERATOR/TENDER) Test Name GenomeSeqDx Duo -mother Result 1 See Comment [facility] Comment:Parental sample sent on 06/20/2024; see Proband report once completed. Complete 20240620 [facility] Miscellaneous 06/20/2024 5:1 3 PM COMPACTING MACHINE OPERATOR/TENDER 06/20/2024 9:47 PM COMPACTING MACHINE OPERATOR/TENDER Narrative [facility] - 06/20/2024 9:50 PM COMPACTING MACHINE OPERATOR/TENDER Order is in [facility] Name of test to be performed:->GenomeSeqDx Comparator Sample to GeneDx Specimen type/source->3-4 ml blood in EDTA Maru Watts MD LAB GENETIC TESTING Fi nal Result [facility] Department [place] [address] * SCAN - RADIOLOGY/IMAGING (06/13/2024 9:18 PM COMPACTING MACHINE OPERATOR/TENDER) Anatomical Region Laterality Modality Other us Jimenez Townsend MD Final Result * eGFR (05/15/2023 6:06 PM COMPACTING MACHINE OPERATOR/TENDER) eGFR 141 mL/min/1. 73 m2 [facility] Comment: Interpretive Data Reference Interval Normal >/= [...] last reviewed 2021. Testing performed by: [facility], [address] [place] [address]., [address] Blood 05/15/2023 6:06 PM COMPACTING MACHINE OPERATOR/TENDER 05/15/2023 6:09 PM COMPACTING MACHINE OPERATOR/TENDER us Nasreen Ruiz MD LAB BLOOD ORDERABLES Fin al Result [facility] [address] [facility] Department [place] [address] * Pap with reflex to High Risk HPV and Genotyping (Cytology Component) (11/24/2022 9:15 AM CDT) Thin prep (Pap test) 11/24/2022 9:15 AM CDT 11/29/2022 9:15 AM CDT Narrative PATHOLOGY [facility] - 12/02/2022 9:50 AM CDT [facility] Department of Pathology [address] [place], [place] [id number] Final Report Note to Patients: This report [...] the details. Patient Name: PEDRO STRICKLAND Address: [address] [place] [address] Gender: F : 1995 (Age: 27) Service: Location: [facility] : [id number] Hospital #: [id number] Patient Type: [facility] SPECIMEN Taken: 11/24/2022 Received: 11/29/2022 Accessioned:: 11/30/2022 Reported: 12/02/2022 Physician(s): Dr. Marquez Nichols M.D. [facility] Diagnosis: SOURCE OF SPECIMEN Imaged Thinprep Pap Test w/ Reflex HPV - Sample Builder Cytologic Material: STATEMENT OF ADEQUACY - Satisfactory for evaluation; endocervical/transformation zone component present GENERAL CATEGORIZATION: - Negative for intraepithelial lesion or malignancy INTERPRETATION: - Fungal organisms present, morphologically consistent with erickson species - Numerous inflammatory cells present LUZ Ramos(ASCP) Report Electronically Reviewed and Signed Out By LUZ Ramos(ASCP) 12/02/2022 09:50:36Specimen(s) Received: A: Imaged Thinprep Pap Test w/ Reflex HPV - Sample Builder Cytologic Material Clinical History: Last Menstrual Period: [...] determined by the Surgical Pathology Department at [facility] as part of an ongoing advanced quality engineer program and in compliance with [...] characteristics determined by the Surgical Pathology Department [facility]. It has not been cleared or approved by the U. S. Food and Drug Administration. Marquez Nichols MD LAB CYTOLOGY ORDERABLES Fi nal Result Performing Organization Address City/State/[place] Co de Phone Number PATHOLOGY [facility] * Hepatitis C antibody (11/03/2022 3:17 [...] GENERAL ORDERABLES Final Result Performing Organization Address City/State/[place] Co de Phone Number [facility] [address] [facility] [place] [address] * Hemoglobin A1c (11/03/2022 3:17 PM CDT) Hgb A1C 5.5 4.0 - 5.6 % [facility] Comment:Testing performed by : [address] [address] Estimated Average Glucose 111 mg/dL [facility] Comment: The ADA recommends reporting an estimated Average Glucose (eAG) with all Hemoglobin A1c results using the equation derived from a study of 507 normal and diabetic adults. Minority populations were underrepresented and children were not included. (Diabetes Care 31:2554-3919, 2008). The eAG is not equivalent to a fasting glucose. Testing performed by: [address] [address] Blood 11/03/2022 3:17 PM CDT 11/03/2022 4:30 PM CDT us Marquez Nichols MD LAB BLOOD ORDERABLES Final Result Performing Organization Address [facility]/[place] Co de Phone Number [facility] [address] [place] [address] from Last 3 Months or Most Recently Relevant to Health Maintenance Insurance IDPA ID[place] BLUE ACCESS [place] Advance Directives For more information, please contact: [phone] * Full Code (Latest Code Status on [...] in case of cardiopulmonary arrest Care Teams Watch Inspector Relationship Specialty Start Date End Date Jimenez Townsend MD PCP - General 08/23/20
--- OUTSIDE RECORDS SUMMARY | 2024-08-19 14:55 | XMS_ITS | Encounter Summary ---
Author Organization [facility] Facility Care Team Providers Care Real Estate Associate Attorney Name Role Phone Jimenez Townsend MD Primary Care Provider [phone] Jimenez Townsend MD Primary Care Provider [phone] Encounter Details Date Type Department Care Team (Latest Contact Info) Description 10/28/2016 Orders Only [facility] CLINCONV ProviderSandra MD [address] [place] [address] Social History Tobacco Use Types Packs/Day Years Used Date Smoking Tobacco: Never Assessed Comments Unknown Sex and Gender Information Value Date Recorded Sex Assigned at Not on file Legal Sex Female 12:29 AM CLINICAL INFORMATION SYSTEMS DIRECTOR Gender Identity Not on file Sexual Orientation [...] COVID: Suspected 05/15/2023 05/15/2023 05/15/2023 6:50 PM CLINICAL INFORMATION SYSTEMS DIRECTOR documented as of this encounter Care Teams Real Estate Associate Attorney Relationship Specialty Start Date End Date Jimenez Townsend MD PCP - General Family Medicine 08/07/18 08/22/20 Jimenez Townsend MD PCP - General 08/23/20 documented as of this encounter
--- OUTSIDE RECORDS SUMMARY | 2024-08-19 14:55 | XMS_ITS | Referral Summary ---
Author Organization [facility] at the Medical Office Center Address [address] [place] [address] Care Team Providers Care Welfare Supervisor Name Role Phone Jimenez Townsend MD Primary Care Provider [phone] Encounters Date Type Department Care Team Description 07/15/2024 Orders Only [facility] Health Information Management [address] [place] [address] Jimenez Townsend MD 07/05/2024 Telephone [facility] Pediatric Genetics [facility] 2nd [place] [phone] Maru Watts MD Test results 06/20/2024 4:55 [place] [phone] Genetic testing 06/20/2024 Orders Only [facility] Pediatric Genetics [address] [place] [phone] Skye Nelson CGC Genetic testing (Primary Dx) 06/13/2024 Orders Only [facility] Health Information Management [address] [place] [address] Jimenez Townsend MD from Last 3 Months [...] the future she should seek evaluation by Blood Tester to rule out an ectopic . Finally, [...] visit Assessment & Plan (05/11/2023 2:59 PM KEYLINER): Not checking sugars or keeping log and reports she will not be able to due to social stressors. Declines social work. Assessment & Plan (04/14/2023 10:36 PM KEYLINER): No BG logs to inform care plan. [...] has very little support. 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 No SI/HI. Tearful and says mood is not good. She is aware that the severity of her symptoms warrant psychiatry involvement however she declines. Self discontinued zoloft as it was not helping but is taking Latuda. Precautions reviewed. Assessment & Plan (04/14/2023 10:58 PM KEYLINER): We reviewed ED precautions given her symptoms. [...] [x] Blue Team Referring Provider: Marquez Nichols [phone] [] or Medicare Insurance [x] Dating Criteria: [...] 04/13 [x] Method of feeding: breast [] Demurrage Clerk: [x] PP Depression Discussed: Declines further intervention at present. Consider psychiatry consult Assessment & Plan (04/14/2023 10:45 PM KEYLINER): Care per Dr. Everett and Magdalena. Reviewed [...] (11/21/2020): Added automatically from request for surgery [id number] History of 07/16/2020 023 Supervision of other [...] 0.6 oz pur e alcohol) [facility] vzaarities Answer Date Recorded In the past 12 months has [employer], [employer] ([employer]), oil, or water [employer] threatened to shut off services in your [...] often do you attend chur ch or tenriism services? Never 06/05/2023 Do you belong to any clubs o r organizations such as hinduism groups, unions, fraternal or athletic groups, or [...] place to sleep or slept in a retirement (including now)? No 06/05/2023 [place] Depression Scale Answer Date Recorded [place] Depression Scale Total 12 03/28/2024 The thought [...] on file Legal Sex Female 12:29 AM KEYLINER Gender Identity Not on file Sexual Orientation [...] MISCELLANEOUS GENETICS LAB Routine 06/20/2024 5:13 PM KEYLINER Genetic testing SCAN - RADIOLOGY/IMAGING 06/13/2024 9:18 PM KEYLINER EGFR STAT 05/15/2023 6:06 PM KEYLINER PAP WITH REFLEX TO HIGH RISK HPV [...] GeneDx - Miscellaneous Test (06/20/2024 5:13 PM KEYLINER) Test Name GenomeSeqDx Duo -mother Result 1 See Comment [facility] Comment:Parental sample sent on 06/20/2024; see Proband report once completed. Complete 20240620 [facility] Miscellaneous 06/20/2024 5:1 3 PM KEYLINER 06/20/2024 9:47 PM KEYLINER Narrative [facility] - 06/20/2024 9:50 PM KEYLINER Order is in [facility] Name of test to be performed:->GenomeSeqDx Comparator Sample to GeneDx Specimen type/source->3-4 ml blood in EDTA us Maru Watts MD LAB GENETIC TESTING Fi nal Result [facility] [place] [address] * SCAN - RADIOLOGY/IMAGING (06/13/2024 9:18 PM KEYLINER) Anatomical Region Laterality Modality Other us Jimenez Townsend MD Final Result * eGFR (05/15/2023 6:06 PM KEYLINER) eGFR 141 mL/min/1. 73 m2 [facility] Comment: Interpretive Data Reference Interval [...] was last reviewed 2021. Testing performed by: [facility], [address] [place] [address], [place]., [address] Blood 05/15/2023 6:06 PM KEYLINER 05/15/2023 6:09 PM KEYLINER us Nasreen Ruiz MD LAB BLOOD ORDERABLES Fin al Result [facility] [address] [facility] Department [place] [address] * Pap with reflex to High Risk HPV and Genotyping (Cytology Component) (11/24/2022 9:15 AM CDT) Thin prep (Pap test) 11/24/2022 9:15 AM CDT 11/29/2022 9:15 AM CDT Narrative PATHOLOGY [facility] - 12/02/2022 9:50 AM CDT [facility] Department of Pathology [address] [place] [address] Final Report Note to Patients: This [...] the details. Patient Name: PEDRO STRICKLAND Address: [address] [place] [address] Gender: F : 1995 (Age: 27) Service: Location: N : [id number] Hospital #: [id number] Patient Type: [facility] SPECIMEN Taken: 11/24/2022 Received: 11/29/2022 Accessioned:: 11/30/2022 Reported: 12/02/2022 Physician(s): Dr. Marquez Nichols M.D. [facility] Diagnosis: SOURCE OF SPECIMEN Imaged Thinprep Pap Test w/ Reflex HPV - Sleeve Machine Tender Cytologic Material: STATEMENT OF ADEQUACY - Satisfactory for evaluation; endocervical/transformation zone component present GENERAL CATEGORIZATION: - Negative for intraepithelial lesion or malignancy INTERPRETATION: - Fungal organisms present, morphologically consistent with erickson species - Numerous inflammatory cells present LUZ Ramos(ASCP) Report Electronically Reviewed and Signed Out By LUZ Ramos(ASCP) 12/02/2022 09:50:36Specimen(s) Received: A: Imaged Thinprep Pap Test w/ Reflex HPV - Sleeve Machine Tender Cytologic Material Clinical History: Last Menstrual Period: [...] determined by the Surgical Pathology Department at [facility] as part of an ongoing quality improvement coordinator program and in compliance with federally mandated [...] characteristics determined by the Surgical Pathology Department [facility]. It has not been cleared or approved by the U. S. Food and Drug Administration. Marquez Nichols MD LAB CYTOLOGY ORDERABLES nal Result PATHOLOGY [facility] * Hepatitis C antibody (11/03/2022 3:17 [...] GENERAL ORDERABLES Final Result Performing Organization Address [facility] Co de Phone Number J[facility] [address] [place] [address] * Hemoglobin A1c (11/03/2022 3:17 PM CDT) Hgb A1C 5.5 4.0 - 5.6 % [facility] Comment:Testing performed by : [address] [address] Estimated Average Glucose 111 mg/dL [facility] Comment: The ADA recommends reporting an estimated Average Glucose (eAG) with all Hemoglobin A1c results using the equation derived from a study of 507 normal and diabetic adults. Minority populations were underrepresented and children were not included. (Diabetes Care 31:5453-4418, 2008). The eAG is not equivalent to a fasting glucose. Testing performed by: [facility], [address] [place] [address]., [address] Blood 11/03/2022 3:17 PM CDT 11/03/2022 4:30 PM CDT Marquez Nichols MD LAB BLOOD ORDERABLES Final Result Performing Organization Address City/[facility] Co de Phone Number [facility] [address] [place] [address] from Last 3 Months or Most Recently Relevant to Health Maintenance Insurance ID[place] BLUE ACCESS [place] Advance Directives For more information, please contact: [phone] * Full Code (Latest Code Status on [...] in case of cardiopulmonary arrest Care Teams Welfare Supervisor Relationship Specialty Start Date End Date Jimenez Townsend MD PCP - General 08/23/20
--- OUTSIDE RECORDS SUMMARY | 2024-08-19 14:55 | XMS_ITS | Encounter Summary ---
Author Organization [facility] Facility Care Team Providers Care Manager Of Compensation Name Role Phone Jimenez Townsend MD Primary Care Provider Jimenez Townsend MD Primary Care Provider [phone] Encounter Details Date Type Department Care Team (Latest Contact Info) Description 11/07/2016 Orders Only [facility] CLINCONV ProviderSandra MD [address] [place] [address] Social History Tobacco Use Types Packs/Day Years Used Date Smoking Tobacco: Never Assessed Comments Unknown Sex and Gender Information Value Date Recorded Sex Assigned at Not on file Legal Sex Female 12:29 AM JAVA APPLICATION DEVELOPER Gender Identity Not on file Sexual Orientation [...] COVID: Suspected 05/15/2023 05/15/2023 05/15/2023 6:50 PM JAVA APPLICATION DEVELOPER documented as of this encounter Care Teams Manager Of Compensation Relationship Specialty Start Date End Date Jimenez Townsend MD PCP - General Family Medicine 08/07/18 08/22/20 Jimenez oTwnsend MD PCP - General 08/23/20 documented as of this encounter
--- OUTSIDE RECORDS SUMMARY | 2024-08-19 14:55 | XMS_ITS | Encounter Summary ---
Author Organization [facility] Facility Care Team Providers Care Audiovisual Production Specialist Name Role Phone Jimenez Townsend MD Primary Care Provider [phone] Jimenez Townsend MD Primary Care Provider [phone] Encounter Details Date Type Department Care Team (Latest Contact Info) Description 09/15/2016 Orders Only [facility] CLINCONV ProviderSandra MD [address] [place] [address] Social History Tobacco Use Types Packs/Day Years Used Date Smoking Tobacco: Never Assessed Comments Unknown Sex and Gender Information Value Date Recorded Sex Assigned at Not on file Legal Sex Female 12:29 AM PLATINUM AND PALLADIUM KETTLE TENDER Gender Identity Not on file Sexual Orientation [...] COVID: Suspected 05/15/2023 05/15/2023 05/15/2023 6:50 PM PLATINUM AND PALLADIUM KETTLE TENDER documented as of this encounter Care Teams Audiovisual Production Specialist Relationship Specialty Start Date End Date Jimenez Townsend MD PCP - General Family Medicine 08/07/18 08/22/20 Jimenez Townsend MD PCP - General 08/23/20 documented as of this encounter
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
--- OUTSIDE RECORDS SUMMARY | 2024-08-19 15:51 | XMS_ITS | Encounter Summary ---
Author Organization [facility] Facility Care Team Providers Care Patient Registration Manager Name Role Phone Jimenez Townsend MD Primary Care Provider [phone] Jimenez Townsend MD Primary Care Provider [phone] Encounter Details Date Type Department Care Team (Latest Contact Info) Description 11/07/2016 Orders Only [facility] ProviderSandra MD [address] [place] [address] Social History Tobacco Use Types Packs/Day Years Used Date Smoking Tobacco: Never Assessed Comments Unknown Sex and Gender Information Value Date Recorded Sex Assigned at Not on file Legal Sex Female 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
--- OUTSIDE RECORDS SUMMARY | 2024-08-19 15:51 | XMS_ITS | Encounter Summary ---
Author Organization [facility] Facility Care Team Providers Care First Aid Teacher Name Role Phone Jimenez Townsend MD Primary Care Provider [phone] Jimenez Townsend MD Primary Care Provider [phone] Encounter Details Date Type Department Care Team (Latest Contact Info) Description 09/17/2016 Orders Only [facility]INCON[facility] ProviderSandra MD [address] [place] [address] Social History Tobacco Use Types Packs/Day Years Used Date Smoking Tobacco: Never Assessed Comments Unknown Sex and Gender Information Value Date Recorded Sex Assigned at Not on file Legal 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
--- OUTSIDE RECORDS SUMMARY | 2024-08-19 15:51 | XMS_ITS | Encounter Summary ---
Author Organization [facility] Facility Care Team Providers Care Windows Vmware Engineer Name Role Phone Jimenez Townsend MD Primary Care Provider [phone] Jimenez Townsend MD Primary Care Provider [phone] Encounter Details Date Type Department Care Team (Latest Contact Info) Description 10/13/2016 Orders Only [facility] CLINCONV ProviderSandra MD [address] [place] [address] Social History Tobacco Use Types Packs/Day Years Used Date Smoking Tobacco: Never Assessed Comments Unknown Sex and Gender Information Value Date Recorded Sex Assigned at Not on file Legal 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
--- OUTSIDE RECORDS SUMMARY | 2024-08-19 15:51 | XMS_ITS | Encounter Summary ---
Author Organization [facility] Facility Care Team Providers Care Affiliate Marketing Coordinator Name Role Phone Jimenez Townsend MD Primary Care Provider [phone] Jimenez Townsend MD Primary Care Provider [phone] Encounter Details Date Type Department Care Team (Latest Contact Info) Description 11/10/2016 Orders Only [facility]INCON[facility] ProviderSandra MD [address] [place] [address] Social History Tobacco Use Types Packs/Day Years Used Date Smoking Tobacco: Never Assessed Comments Unknown Sex and Gender Information Value Date Recorded Sex Assigned at Not on file Legal Sex Female 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
--- OUTSIDE RECORDS SUMMARY | 2024-08-19 15:51 | XMS_ITS | Clinical Summary ---
Author Organization [facility] Office Center Address [address] [place] [address] Care Team Providers Care Fur Polisher Name Role Phone Jimenez Townsend MD Primary Care Provider [phone] Allergies Active Allergy Reactions Criticality Noted Date [...] the future she should seek evaluation by Bread Wrapper Operator to rule out an ectopic . Finally, [...] visit Assessment & Plan (05/11/2023 2:59 PM FRAME TENDER): Not checking sugars or keeping log and reports she will not be able to due to social stressors. Declines social work. Assessment & Plan (04/14/2023 10:36 PM FRAME TENDER): No BG logs to inform care plan. [...] has very little support. 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 No SI/HI. Tearful and says mood is not good. She is aware that the severity of her symptoms warrant psychiatry involvement however she declines. Self discontinued zoloft as it was not helping but is taking Latuda. Precautions reviewed. Assessment & Plan (04/14/2023 10:58 PM FRAME TENDER): We reviewed ED precautions given her symptoms. [...] [x] Blue Team Referring Provider: Marquez Nichols [phone] [] or Medicare Insurance [x] Dating Criteria: [...] 04/13 [x] Method of feeding: breast [] Taxation Agent: [x] PP Depression Discussed: Declines further intervention at present. Consider psychiatry consult Assessment & Plan (04/14/2023 10:45 PM FRAME TENDER): Care per Dr. Everett and Magdalena. Reviewed [...] (11/21/2020): Added automatically from request for surgery [id number] History of 07/16/2020 023 Supervision of other [...] Department Care Team Description 07/15/2024 Orders Only [facility] Information Management [address] [place] [address] Jimenez Townsend MD 07/05/2024 Telephone [facility] Pediatric Genetics [facility] [address] [place] [address] [place] [id number] Maru Watts MD Test results 06/20/2024 4:55 [place] [id number] Genetic testing 06/20/2024 Orders Only [facility] Pediatric Genetics [facility] 2[address] [place] [address] [place] [id number] Skye Nelson CGC Genetic testing (Primary Dx) 06/13/2024 Orders Only [facility] Health Information Management [address] [place] [address] Jimenez Townsend MD from Last 3 Months [...] SECTION 06/03/[address] [facility]. with tubal ligation TUBAL LIGATION 06/03/2023 at [facility]. with c/s Medical History Medical History Date [...] drink = 0.6 oz pur e alcohol) [facility] Utilities Answer Date Recorded In the [...] often do you attend chur ch or yarsanism services? Never 06/05/2023 Do you belong to any clubs o r organizations such as gnosticism groups, unions, fraternal or athletic groups, or [...] place to sleep or slept in a mcfp (including now)? No 06/05/2023 Troy Depression Scale Answer Date Recorded [place] Depression Scale Total 12 03/28/2024 The thought [...] on file Legal Sex Female 12:29 AM FRAME TENDER Gender Identity Not on file Sexual [...] Emerso n Amanda Aceves MD Complications:None Delivery Location:[facility] Main C ampus ([facility] L AND D PROCEDURE) Comments G1: failure [...] MISCELLANEOUS GENETICS LAB Routine 06/20/2024 5:13 PM FRAME TENDER Genetic testing SCAN - RADIOLOGY/IMAGING 06/13/2024 9:18 PM FRAME TENDER EGFR STAT 05/15/2023 6:06 PM FRAME TENDER PAP WITH REFLEX TO HIGH RISK HPV [...] GeneDx - Miscellaneous Test (06/20/2024 5:13 PM FRAME TENDER) Test Name GenomeSeqDx Duo -mother Result 1 See Comment [facility] Comment:Parental sample sent on 06/20/2024; see Proband report once completed. Complete [id number] [facility] Miscellaneous 06/20/2024 5:1 3 PM FRAME TENDER 06/20/2024 9:47 PM FRAME TENDER Narrative [facility] - 06/20/2024 9:50 PM FRAME TENDER Order is in [facility] Name of test to be performed:->GenomeSeqDx Comparator Sample to GeneDx Specimen type/source->3-4 ml blood in EDTA Maru Watts MD LAB GENETIC TESTING Fi nal Result [facility] Department [place] [address] * SCAN - RADIOLOGY/IMAGING (06/13/2024 9:18 PM FRAME TENDER) Anatomical Region Laterality Modality Other us Jimenez Townsend MD Final Result * eGFR (05/15/2023 6:06 PM FRAME TENDER) eGFR 141 mL/min/1. 73 m2 [facility] Comment: [...] was last reviewed 2021. Testing performed by: [facility], [address] [place] [address]., [address] Blood 05/15/2023 6:06 PM FRAME TENDER 05/15/2023 6:09 PM FRAME TENDER us Nasreen Ruiz MD LAB BLOOD ORDERABLES Fin al Result [facility] [address] [facility] [place] [address] * Pap with reflex to High Risk HPV and Genotyping (Cytology Component) (11/24/2022 9:15 AM CDT) Thin prep (Pap test) 11/24/2022 9:15 AM CDT 11/29/2022 9:15 AM CDT Narrative PATHOLOGY [facility] - 12/02/2022 9:50 AM CDT [facility] Department of Pathology [address] [place], [place] [id number] Final Report Note to Patients: This report [...] the details. Patient Name: PEDRO STRICKLAND Address: [address] [place] [address] Gender: F : 1995 (Age: 27) Service: Location: [facility] : [id number] Hospital #: [id number] Patient Type: [facility] SPECIMEN Taken: 11/24/2022 Received: 11/29/2022 Accessioned:: 11/30/2022 Reported: 12/02/2022 Physician(s): Dr. Marquez Nichols M.D. [facility] Diagnosis: SOURCE OF SPECIMEN Imaged Thinprep Pap Test w/ Reflex HPV - [facility] Cytologic Material: STATEMENT OF ADEQUACY - Satisfactory for evaluation; endocervical/transformation zone component present GENERAL CATEGORIZATION: - Negative for intraepithelial lesion or malignancy INTERPRETATION: - Fungal organisms present, morphologically consistent with erickson species - Numerous inflammatory cells present LUZ Ramos(ASCP) Report Electronically Reviewed and Signed Out By LUZ Ramos(ASCP) 12/02/2022 09:50:36Specimen(s) Received: A: Imaged Thinprep Pap Test w/ Reflex HPV - [facility] Cytologic Material Clinical History: Last Menstrual Period: [...] by the Surgical Pathology Department at [facility] as part of an ongoing quality technician program and in compliance with federally mandated [...] characteristics determined by the Surgical Pathology Department [facility]. It has not been cleared or approved by the U. S. Food and Drug Administration. Marquez Nichols MD LAB CYTOLOGY ORDERABLES Fi nal Result Performing Organization Address City/State/[facility] Co de Phone Number PATHOLOGY [facility] * Hepatitis C antibody (11/03/2022 3:17 PM [...] GENERAL ORDERABLES Final Result Performing Organization Address City/State/[facility] Co de Phone Number [facility] [address] [facility] [place] [address] * Hemoglobin A1c (11/03/2022 3:17 PM CDT) Hgb A1C 5.5 4.0 - 5.6 % [facility] Comment:Testing performed by : [address] [address] Estimated Average Glucose 111 mg/dL [facility] Comment: The ADA recommends reporting an estimated Average Glucose (eAG) with all Hemoglobin A1c results using the equation derived from a study of 507 normal and diabetic adults. Minority populations were underrepresented and children were not included. (Diabetes Care 31:2107-3646, 2008). The eAG is not equivalent to a fasting glucose. Testing performed by: [address] [address] Blood 11/03/2022 3:17 PM CDT 11/03/2022 4:30 PM CDT us Marquez Nichols MD LAB BLOOD ORDERABLES Final Result Performing Organization Address [facility] Co de Phone Number [facility] [address] [place] [address] from Last 3 Months or Most Recently Relevant to Health Maintenance Insurance IDPA IDID BLUE ACCESS [place] Advance Directives For more information, please contact: [phone] * Full Code (Latest Code Status on [...] in case of cardiopulmonary arrest Care Teams Fur Polisher Relationship Specialty Start Date End Date Jimenez Townsend MD PCP - General 08/23/20
--- OUTSIDE RECORDS SUMMARY | 2024-08-19 15:51 | XMS_ITS | Clinical Summary ---
Author Organization [facility] Care Team Providers Care Set Up Mechanic Heading Machines Name Role Phone Unavailable Primary Care Provider [...]
--- OUTSIDE RECORDS SUMMARY | 2024-08-19 15:51 | XMS_ITS | Encounter Summary ---
Author Organization 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
--- OUTSIDE RECORDS SUMMARY | 2024-08-19 15:51 | XMS_ITS | Encounter Summary ---
Author Organization [facility] Facility Care Team Providers Care Grape Cutter Name Role Phone Jimenez Townsend MD Primary Care Provider [phone] Jimenez Townsend MD Primary Care Provider [phone] Encounter Details Date Type Department Care Team (Latest Contact Info) Description 09/15/2016 Orders Only [facility]INCON[facility] ProviderSandra MD [address] [place] [address] Social History Tobacco Use Types Packs/Day Years Used Date Smoking Tobacco: Never Assessed Comments Unknown Sex and Gender Information Value Date Recorded Sex Assigned at Not on file Legal Sex Female 12:29 AM LACE WEAVER Gender Identity Not on file Sexual Orientation [...] COVID: Suspected 05/15/2023 05/15/2023 05/15/2023 6:50 PM LACE WEAVER documented as of this encounter Care Teams Grape Cutter Relationship Specialty Start Date End Date Jimenez Townsend MD PCP - General Family Medicine 08/07/18 08/22/20 Jimenez Townsend MD PCP - General 08/23/20 documented as of this encounter
--- OUTSIDE RECORDS SUMMARY | 2024-08-19 15:51 | XMS_ITS | Referral Summary ---
Author Organization [facility] Address [address] [place] [address] Care Team Providers Care Clothing Man Name Role Phone Jimenez Townsend MD Primary Care Provider [phone] Encounters Date Type Department Care Team Description 07/15/2024 Orders Only [facility] Health Information Management [address] [place] [address] Jimenez Townsend MD 07/05/2024 Telephone [facility] Pediatric Genetics [facility] 2nd [place] [phone] Maru Watts MD Test results 06/20/2024 4:55 PM CONSUMER [place] [phone] Genetic testing 06/20/2024 Orders Only [facility] Pediatric Genetics [address] [place] [phone] Skye Nelson CGC Genetic testing (Primary Dx) 06/13/2024 Orders Only [facility] Health Information Management [address] [place] [address] Jimenez Townsend MD from Last 3 Months [...] the future she should seek evaluation by Fire Pot Operator to rule out an ectopic . [...] visit Assessment & Plan (05/11/2023 2:59 PM CONSUMER MARKETING MANAGER): Not checking sugars or keeping log and reports she will not be able to due to social stressors. Declines social work. Assessment & Plan (04/14/2023 10:36 PM CONSUMER MARKETING MANAGER): No BG logs to inform care plan. [...] has very little support. 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 No SI/HI. Tearful and says mood is not good. She is aware that the severity of her symptoms warrant psychiatry involvement however she declines. Self discontinued zoloft as it was not helping but is taking Latuda. Precautions reviewed. Assessment & Plan (04/14/2023 10:58 PM CONSUMER MARKETING MANAGER): We reviewed ED precautions given her symptoms. [...] [x] Blue Team Referring Provider: Marquez Nichols [phone] [] or Medicare Insurance [x] Dating Criteria: [...] 04/13 [x] Method of feeding: breast [] Lobster Fisherman: [x] PP Depression Discussed: Declines further intervention at present. Consider psychiatry consult Assessment & Plan (04/14/2023 10:45 PM CONSUMER MARKETING MANAGER): Care per Dr. Everett and Magdalena. Reviewed [...] (11/21/2020): Added automatically from request for surgery [id number] History of 07/16/2020 023 Supervision of other [...] [facility] U-Play Studiosities Answer Date Recorded In the past 12 months has [employer], oil, or water [employer] threatened to shut off services in your [...] often do you attend chur ch or scientology services? Never 06/05/2023 Do you belong to any clubs o r organizations such as mosque groups, unions, fraternal or athletic groups, or [...] a senior living (including now)? No 06/05/2023 [place] Depression Scale Answer Date Recorded [place] Depression Scale Total 12 03/28/2024 The [...] on file Legal Sex Female 12:29 AM CONSUMER MARKETING MANAGER Gender Identity Not on file Sexual [...] MISCELLANEOUS GENETICS LAB Routine 06/20/2024 5:13 PM CONSUMER MARKETING MANAGER Genetic testing SCAN - RADIOLOGY/IMAGING 06/13/2024 9:18 PM CONSUMER MARKETING MANAGER EGFR STAT 05/15/2023 6:06 PM CONSUMER MARKETING MANAGER PAP WITH REFLEX TO HIGH RISK HPV [...] GeneDx - Miscellaneous Test (06/20/2024 5:13 PM CONSUMER MARKETING MANAGER) Test Name GenomeSeqDx Duo -mother Result 1 See Comment [facility] Comment:Parental sample sent on 06/20/2024; see Proband report once completed. Complete [id number] [facility] Miscellaneous 06/20/2024 5:1 3 PM CONSUMER MARKETING MANAGER 06/20/2024 9:47 PM CONSUMER MARKETING MANAGER Narrative [facility] - 06/20/2024 9:50 PM CONSUMER MARKETING MANAGER Order is in [facility] Name of test to be performed:->GenomeSeqDx Comparator Sample to GeneDx Specimen type/source->3-4 ml blood in EDTA us Maru Watts MD LAB GENETIC TESTING Fi nal Result [facility] Department [place] [address] * SCAN - RADIOLOGY/IMAGING (06/13/2024 9:18 PM CONSUMER MARKETING MANAGER) Anatomical Region Laterality Modality Other us Jimenez Townsend MD Final Result * eGFR (05/15/2023 6:06 PM CONSUMER MARKETING MANAGER) eGFR 141 mL/min/1. 73 m2 [facility] Comment: Interpretive Data Reference Interval Normal >/= [...] was last reviewed 2021. Testing performed by: [facility], [address] [place] [address], [place]., [address] Blood 05/15/2023 6:06 PM CONSUMER MARKETING MANAGER 05/15/2023 6:09 PM CONSUMER MARKETING MANAGER us Nasreen Ruiz MD LAB BLOOD ORDERABLES Fin al Result J[facility] [address] [facility] Department [place] [address] * Pap with reflex to High Risk HPV and Genotyping (Cytology Component) (11/24/2022 9:15 AM CDT) Thin prep (Pap test) 11/24/2022 9:15 AM CDT 11/29/2022 9:15 AM CDT Narrative PATHOLOGY [facility] - 12/02/2022 9:50 AM CDT [facility] Department of Pathology [address] [place] [address] Final Report Note to Patients: This [...] the details. Patient Name: PEDRO STRICKLAND Address: [address] [place] [address] Gender: F : 1995 (Age: 27) Service: Location: N : [id number] Hospital #: [id number] Patient Type: [facility] SPECIMEN Taken: 11/24/2022 Received: 11/29/2022 Accessioned:: 11/30/2022 Reported: 12/02/2022 Physician(s): Dr. Marquez Nichols M.D. [facility] Diagnosis: SOURCE OF SPECIMEN Imaged Thinprep Pap Test w/ Reflex HPV - Machinist Linotype Cytologic Material: STATEMENT OF ADEQUACY - Satisfactory for evaluation; endocervical/transformation zone component present GENERAL CATEGORIZATION: - Negative for intraepithelial lesion or malignancy INTERPRETATION: - Fungal organisms present, morphologically consistent with erickson species - Numerous inflammatory cells present LUZ Ramos(ASCP) Report Electronically Reviewed and Signed Out By LUZ Ramos(ASCP) 12/02/2022 09:50:36Specimen(s) Received: A: Imaged Thinprep Pap Test w/ Reflex HPV - Machinist Linotype Cytologic Material Clinical History: Last Menstrual Period: [...] determined by the Surgical Pathology Department at [facility] as part of an ongoing manufacturing quality engineer program and in compliance with [...] characteristics determined by the Surgical Pathology Department [facility]. It has not been cleared or approved by the U. S. Food and Drug Administration. Marquez Nichols MD LAB CYTOLOGY ORDERABLES nal Result PATHOLOGY [facility] * Hepatitis C antibody (11/03/2022 3:17 [...] GENERAL ORDERABLES Final Result Performing Organization Address [facility] Co de Phone Number J[facility] [address] [place] [address] * Hemoglobin A1c (11/03/2022 3:17 PM CDT) Hgb A1C 5.5 4.0 - 5.6 % [facility] Comment:Testing performed by : [address] [address] Estimated Average Glucose 111 mg/dL [facility] Comment: The ADA recommends reporting an estimated Average Glucose (eAG) with all Hemoglobin A1c results using the equation derived from a study of 507 normal and diabetic adults. Minority populations were underrepresented and children were not included. (Diabetes Care 31:7985-4052, 2008). The eAG is not equivalent to a fasting glucose. Testing performed by: [facility], [address] [place] [address]., [address] Blood 11/03/2022 3:17 PM CDT 11/03/2022 4:30 PM CDT Marquez Nichols MD LAB BLOOD ORDERABLES Final Result Performing Organization Address City/[facility] Co de Phone Number [facility] [address] [place] [address] from Last 3 Months or Most Recently Relevant to Health Maintenance Insurance IDPA IDRI BLUE ACCESS ID IDRI Advance Directives For more information, please contact: [phone] * Full Code (Latest Code Status on [...] in case of cardiopulmonary arrest Care Teams Clothing Man Relationship Specialty Start Date End Date Jimenez Townsend MD PCP - General 08/23/20
== END 2024-08-19 16:03 | disposition home or self-care (01) ==
LOC: ANHED 15:49
PROVIDERS: Emergency Provider Family Medicine; PCP Family Medicine
DX: M54.50 Low back pain, unspecified (principal); G89.21 Chronic pain due to trauma; E66.9 Obesity, unspecified; Z68.33 Body mass index [BMI] 33.0-33.9, adult; Z90.49 Acquired absence of other specified parts of digestive tract
CPT/HCPCS: 99283

== ENCOUNTER 2025-01-01 16:06 | Emergency (ER) | payer BC, MEDICAID, SELFPAY ==
--- NOTE | ~2025-01-01 | XR_ITS ---
XR shoulder RT min 2V 01/01/2025 17:31 INDICATION: Right shoulder pain. PROCEDURE: 4 views right shoulder COMPARISON: No prior studies for comparison. FINDINGS: Fracture, dislocation or subluxation is not identified. The soft tissues appear within normal limits. No foreign bodies are identified. IMPRESSION: 1: NO ACUTE BONE OR JOINT ABNORMALITY IDENTIFIED. Reviewed, dictated and finalized at location A.
[2025-01-01 16:08] VITALS: BP 116/66; PULSE 82; RESP 16; TEMP 36.6; O2SAT 99
--- OUTSIDE RECORDS SUMMARY | 2025-01-01 16:27 | XMS_ITS | Encounter Summary ---
Author Organization [facility] Facility Care Team Providers Care Supervisor Pipelines Name Role Phone Jimenez Townsend MD Primary Care Provider [phone] Jimenez Townsend MD Primary Care Provider [phone] Encounter Details Date Type Department Care Team (Latest Contact Info) Description 11/10/2016 Orders Only [facility] ProviderSandra MD [address] [place] [address] Social History Tobacco Use Types Packs/Day Years Used Date Smoking Tobacco: Never Assessed Comments Unknown Sex and Gender Information Value Date Recorded Sex Assigned at Not on file Legal Sex Female 12:29 AM TEST CAR DRIVER Gender Identity Not on file Sexual Orientation [...] COVID: Suspected 05/15/2023 05/15/2023 05/15/2023 6:50 PM TEST CAR DRIVER documented as of this encounter Care Teams Supervisor Pipelines Relationship Specialty Start Date End Date Jimenez Townsend MD PCP - General Family Medicine 08/07/18 08/22/20 Jimenez Townsend MD PCP - General 08/23/20 documented as of this encounter
--- OUTSIDE RECORDS SUMMARY | 2025-01-01 16:27 | XMS_ITS | Clinical Summary ---
Author Organization [facility] Care Team Providers Care Treatment Manager Name Role Phone Unavailable Primary Care Provider [...] Virus (HCV) Screening 1995 TdaP Immunization 1995 Hepatitis B Immunization (1 of 3 - 19+ 3-dose series) 2016 SARS-COV-2 Immunization ( - 2023- season) 2024 Human Papillomavirus (HPV) Immunization (1 - 3-dose SCDM series) 2024 Influenza Immunization (#1) 2025 Respiratory Syncytial Virus (RSV) Immunization (Adult) (1 [...]
--- OUTSIDE RECORDS SUMMARY | 2025-01-01 16:27 | XMS_ITS | Encounter Summary ---
Author Organization [facility] Facility Care Team Providers Care Freight Brakeman Name Role Phone Jimenez Townsend MD Primary Care Provider [phone] Jimenez Townsend MD Primary Care Provider [phone] Encounter Details Date Type Department Care Team (Latest Contact Info) Description 10/28/2016 Orders Only [facility]INCON[facility] ProviderSandra MD [address] [place] [address] Social History Tobacco Use Types Packs/Day Years Used Date Smoking Tobacco: Never Assessed Comments Unknown Sex and Gender Information Value Date Recorded Sex Assigned at Not on file Legal Sex Female 12:29 AM LARRY CAR OPERATOR Gender Identity Not on file Sexual [...] COVID: Suspected 05/15/2023 05/15/2023 05/15/2023 6:50 PM LARRY CAR OPERATOR documented as of this encounter Care Teams Freight Brakeman Relationship Specialty Start Date End Date Jimenez Townsend MD PCP - General Family Medicine 08/07/18 08/22/20 Jimenez Townsend MD PCP - General 08/23/20 documented as of this encounter
--- OUTSIDE RECORDS SUMMARY | 2025-01-01 16:27 | XMS_ITS | Clinical Summary ---
Author Organization [facility] Address [address] [place] [address] Care Team Providers Care Retail Loss Prevention Investigator Name Role Phone Jimenez Townsend MD Primary Care Provider [phone] Allergies Active Allergy Reactions Criticality Noted Date [...] the future she should seek evaluation by Extension Forester to rule out an ectopic . Finally, [...] visit Assessment & Plan (05/11/2023 2:59 PM APRON MAN): Not checking sugars or keeping log and reports she will not be able to due to social stressors. Declines social work. Assessment & Plan (04/14/2023 10:36 PM APRON MAN): No BG logs to inform care plan. [...] has very little support. 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 No SI/HI. Tearful and says mood is not good. She is aware that the severity of her symptoms warrant psychiatry involvement however she declines. Self discontinued zoloft as it was not helping but is taking Latuda. Precautions reviewed. Assessment & Plan (04/14/2023 10:58 PM APRON MAN): We reviewed ED precautions given her symptoms. [...] [x] Blue Team Referring Provider: Marquez Nichols [phone] [] or Medicare Insurance [x] Dating Criteria: [...] 04/13 [x] Method of feeding: breast [] Genetics Physician: [x] PP Depression Discussed: Declines further intervention at present. Consider psychiatry consult Assessment & Plan (04/14/2023 10:45 PM APRON MAN): Care per Dr. Everett and Magdalena. Reviewed [...] (11/21/2020): Added automatically from request for surgery [id number] History of 07/16/2020 023 Supervision of other [...] 05/16/2020 - 05/15/2021 REPEAT SECTION 06/03/2023 at [facility]. with tubal ligation TUBAL LIGATION 06/03/2023 at [place]. [facility]. with c/s Medical History Medical History Date [...] drink = 0.6 oz pur e alcohol) [facility] Utilities Answer Date Recorded In the past 12 months has e electric, gas, oil, or water company threatened to shut off services in your home? No 06/05/2023 Social Connection and Isolation Panel Answer Date Recorded In a typical week, how [...] any clubs o r organizations such as taoism groups, unions, fraternal or athletic groups, or [...] place to sleep or slept in a [place] health care facility (including now)? No 06/05/2023 [place] Depression Scale Answer Date Recorded [place] Depression Scale Total 12 03/28/2024 The thought [...] on file Legal Sex Female 12:29 AM APRON MAN Gender Identity Not on file Sexual Orientation [...] ranv Spinal N Livin g 9 9 REGULO VANCE,MONE Pettit yRios Cothr on, DO Complications:None Delivery Location:[facility] Main C ampus (E L AND D PROCEDURE) 2023 Term 39w 0d 0h 03m 0h 03m 3.38 kg (7 lb 7.2 oz) F C-Sec tion Combin ed Spinal /Epidu ral N Livin g 8 9 Emerso n Amanda Aceves MD Complications:None Delivery Location:[facility] Main C ampus ([facility] L AND D PROCEDURE) Comments G1: [...] 11:22 AM CDT Height 165.1 cm (5' 5) 02/16/2024 11:22 AM CDT Body Mass Index [...] 04/16/2021 03/19/2021, 02/18/2021 Hemoglobin A1C 05/05/2023 11/03/2022, 0207/2020, 04/29/2016 Cervical Cancer Screening 11/25/2023 11/24/2022 eGFR 05/15/2024 05/15/2023, 03/16, 10/18/2022, Additional history exists HPV Vaccines (1 - 3-dose SCD M series) 2024 Influenza Vaccine (#1) 2025 Regular Well Visit/Exam 18-64 02/15/2025 02/16/2024 Depression Screening 03/28/2025 03/28/2024, 06/24/2023, 06/24/2023, Additional history exists Hepatitis C Screening Completed 11/03/2022, 021 Procedures Procedure Name Priority Date/Time Associated Diagnosis Comments EGFR STAT 05/15/2023 6:06 PM APRON MAN PAP WITH REFLEX TO HIGH RISK HPV Routine 11/24/2022 9:15 AM CDT Screening for cervical cancer HEPATITIS C ANTIBODY Routine 11/03/2022 3:17 PM CDT Positive test HEMOGLOBIN A1C Routine 11/03/2022 3:17 PM CDT Positive test from Last 3 Months or Most Recently Relevant to Health Maintenance Results * eGFR (05/15/2023 6:06 PM APRON MAN) eGFR 141 mL/min/1. 73 m2 [facility] [place] Comment: Interpretive Data Reference Interval Normal >/= [...] was last reviewed 2021. Testing performed by: [facility], [address] [place] [address]., [address] Blood 05/15/2023 6:06 PM APRON MAN 05/15/2023 6:09 PM APRON MAN us Nasreen Ruiz MD LAB BLOOD ORDERABLES Fin al Result J[facility] [address] [facility] Department [place] [address] * Pap with reflex to High Risk HPV and Genotyping (Cytology Component) (11/24/2022 9:15 AM CDT) Thin prep (Pap test) 11/24/2022 9:15 AM CDT 11/29/2022 9:15 AM CDT Narrative PATHOLOGY [facility] - 12/02/2022 9:50 AM CDT [facility] Department of Pathology [address] [place] [address] Final Report Note to Patients: This [...] details. Patient Name: PEDRO STRICKLAND Address: [address] [place] [address] Gender: F : 1995 (Age: 27) Service: Location: Hospital #: [id number] Patient Type: E SPECIMEN Taken: 11/24/2022 Received: 11/29/2022 Accessioned:: 11/30/2022 Reported: 12/02/2022 Physician(s): Dr. Marquez Nichols M.D. [facility] Diagnosis: SOURCE OF SPECIMEN Imaged Thinprep Pap Test w/ Reflex HPV - Office Machine Embossograph Operator Cytologic Material: STATEMENT OF ADEQUACY - Satisfactory for evaluation; endocervical/transformation zone component present GENERAL CATEGORIZATION: - Negative for intraepithelial lesion or malignancy INTERPRETATION: - Fungal organisms present, morphologically consistent with erickson species - Numerous inflammatory cells present LUZ Ramos(ASCP) Report Electronically Reviewed and Signed Out By LUZ Ramos(ASCP) 12/02/2022 09:50:36Specimen(s) Received: A: Imaged Thinprep Pap Test w/ Reflex HPV - Office Machine Embossograph Operator Cytologic Material Clinical History: Last Menstrual [...] determined by the Surgical Pathology Department at [facility] as part of an ongoing quality internship program and in compliance with federally mandated [...] the Surgical Pathology Department [facility]. It has not been cleared or approved by the U. S. Food and Drug Administration. Marquez Nichols MD LAB CYTOLOGY ORDERABLES Fi nal Result Performing Organization Address City/[facility] Co de Phone Number PATHOLOGY [facility] * Hepatitis C antibody (11/03/2022 3:17 PM CDT) Pathologist [facility] Hep C Ab Nonreactive Nonreactive [facility] [place] [...] GENERAL ORDERABLES Final Result Performing Organization Address City/[facility] Co de Phone Number [facility] [address] [facility] [place] [address] * Hemoglobin A1c (11/03/2022 3:17 PM CDT) Pathologist [facility] Hgb A1C 5.5 4.0 - 5.6 % [facility] Comment:Testing performed by : [facility], [address] [place] [address]., [address] Estimated Average Glucose 111 mg/dL [facility] [place] Comment: The ADA recommends reporting an estimated Average Glucose (eAG) with all Hemoglobin A1c results using the equation derived from a study of 507 normal and diabetic adults. Minority populations were underrepresented and children were not included. (Diabetes Care 31:1930-6278, 2008). The eAG is not equivalent to a fasting glucose. Testing performed by: [facility], [address] [place] [address]., [address] Blood 11/03/2022 3:17 PM CDT 11/03/2022 4:30 PM CDT us Marquez Nichols MD LAB BLOOD ORDERABLES Final Result Performing Organization Address City/State/[facility] Co de Phone Number [facility] [address] [facility] [place] [address] from Last 3 Months or Most Recently Relevant to Health Maintenance Insurance [employer] BLUE ACCESS ID Advance Directives For more information, please contact: [phone] * Full Code (Latest Code Status on [...] in case of cardiopulmonary arrest Care Teams Retail Loss Prevention Investigator Relationship Specialty Start Date End Date Jimenez Townsend MD PCP - General 08/23/20
--- OUTSIDE RECORDS SUMMARY | 2025-01-01 16:27 | XMS_ITS | Encounter Summary ---
Author Organization [facility] Facility Care Team Providers Care Ell Teacher Name Role Phone Jimenez Townsend MD Primary Care Provider [phone] Jimenez Townsend MD Primary Care Provider [phone] Encounter Details Date Type Department Care Team (Latest Contact Info) Description 09/17/2016 Orders Only [facility] CLINCONV ProviderSandra MD [address] [place] [address] Social History Tobacco Use Types Packs/Day Years Used Date Smoking Tobacco: Never Assessed Comments Unknown Sex and Gender Information Value Date Recorded Sex Assigned at Not on file Legal Sex Female 12:29 AM SENIOR OFFICER Gender Identity Not on file Sexual [...] COVID: Suspected 05/15/2023 05/15/2023 05/15/2023 6:50 PM SENIOR OFFICER documented as of this encounter Care Teams Ell Teacher Relationship Specialty Start Date End Date Jimenez Townsend MD PCP - General Family Medicine 08/07/18 08/22/20 Jimenez Townsend MD PCP - General 08/23/20 documented as of this encounter
--- OUTSIDE RECORDS SUMMARY | 2025-01-01 16:27 | XMS_ITS | Encounter Summary ---
Author Organization [facility] Facility Care Team Providers Care Producer Assistant Name Role Phone Jimenez Townsend MD Primary Care Provider [phone] Jimenez Townsend MD Primary Care Provider [phone] Encounter Details Date Type Department Care Team (Latest Contact Info) Description 10/13/2016 Orders Only [facility] CLINCONV ProviderSandra MD [address] [place] [address] Social History Tobacco Use Types Packs/Day Years Used Date Smoking Tobacco: Never Assessed Comments Unknown Sex and Gender Information Value Date Recorded Sex Assigned at Not on file Legal Sex Female 12:29 AM AUTOMOTIVE SERVICE ADVISOR Gender Identity Not on file Sexual Orientation [...] COVID: Suspected 05/15/2023 05/15/2023 05/15/2023 6:50 PM AUTOMOTIVE SERVICE ADVISOR documented as of this encounter Care Teams Producer Assistant Relationship Specialty Start Date End Date Jimenez Townsend MD PCP - General Family Medicine 08/07/18 08/22/20 Jimenez Townsend MD PCP - General 08/23/20 documented as of this encounter
--- OUTSIDE RECORDS SUMMARY | 2025-01-01 16:27 | XMS_ITS | Patient Health Record ---
Author Organization [facility] Address [address] [place], [place] [address] Care Team Providers Care Financial Director Name Role Phone JAROCHO BLISS Unavailable [phone] Anup Jovel Unavailable Unavailable Reason For Referral No Information Medications Medication SIG (Take, Route, Frequency, Duration) Notes Start Date End Date Status 24 HR methylphenidate hydrochloride 27 MG Extended Release Oral Tablet [Concerta] ORAL 24 HR methylphenidate hydrochloride 27 MG Extended Release Oral Tablet [Concerta]Original [id number] HR methylphenidate hydrochloride 27 MG Extended Release Oral Tablet [Concerta] *Reorder from [employer] for e 12/17/2013 Active Plan Of Treatment No Information Insurance Providers Payer Name Payer Address Payer Phone Subscriber Number Group Number Insured Name Patient Relationship to Insured Coverage Start Date Coverage End Date [facility] ([facility]) ATTN CLAIMS [address] [place] [address] [id number] LUIS STRICKLAND [facility] Child - Insured has Financial Responsibility
--- OUTSIDE RECORDS SUMMARY | 2025-01-01 16:27 | XMS_ITS | Encounter Summary ---
Author Organization [facility] Facility Care Team Providers Care Humidifier Operator Name Role Phone Jimenez Townsend MD Primary Care Provider [phone] Jimenez Townsend MD Primary Care Provider [phone] Encounter Details Date Type Department Care Team (Latest Contact Info) Description 11/07/2016 Orders Only [facility] CLINCON[facility] ProviderSandra MD [address] [place] [id number] Social History Tobacco Use Types Packs/Day Years Used Date Smoking Tobacco: Never Assessed Comments Unknown Sex and Gender Information Value Date Recorded Sex Assigned at Not on file Legal Sex Female 12:29 AM CREDIT INVESTIGATOR Gender Identity Not on file Sexual Orientation [...] COVID: Suspected 05/15/2023 05/15/2023 05/15/2023 6:50 PM CREDIT INVESTIGATOR documented as of this encounter Care Teams Humidifier Operator Relationship Specialty Start Date End Date Jimenez Townsend MD PCP - General Family Medicine 08/07/18 08/22/20 Jimenez Townsend MD PCP - General 08/23/20 documented as of this encounter
--- OUTSIDE RECORDS SUMMARY | 2025-01-01 16:27 | XMS_ITS | Encounter Summary ---
Author Organization [facility] Facility Care Team Providers Care Bending Frame Operator Name Role Phone Jimenez Townsend MD Primary Care Provider [phone] Jimenez Townsend MD Primary Care Provider [phone] Encounter Details Date Type Department Care Team (Latest Contact Info) Description 09/15/2016 Orders Only [facility] CLINCONV ProviderSandra MD [address] [place] [id number] Social History Tobacco Use Types Packs/Day Years Used Date Smoking Tobacco: Never Assessed Comments Unknown Sex and Gender Information Value Date Recorded Sex Assigned at Not on file Legal Sex Female 12:29 AM HUMAN 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
[2025-01-01 18:11] VITALS: BP 120/84; PULSE 74; RESP 18; O2SAT 98
[2025-01-01] MEDS: KETOROLAC 10 MG TABLET PO (18:17)
--- NOTE | 2025-01-01 18:21 | ED.UPPEXIN ---
HPI - Extremity Injury (Upper) General Chief Complaint: Extremity Injury, Upper Stated Complaint: Right shoulder pain for a few weeks Time Seen by Provider: 01/01/25 17:17 History of Present Illness HPI narrative: Patient states that she injured her right shoulder a few weeks ago, over last few days has gotten more excruciating with pain. Worse with movement. No focal numbness or weakness. Related Data Allergies Allergy/AdvReac Type Severity Reaction Status Date / Time baclofen AdvReac Chills Verified 01/01/25 16:10 meloxicam AdvReac Chills Verified 01/01/25 16:10 Review of Systems Review of Systems: All systems reviewed & are unremarkable except as noted in HPI and below PMFSH Past Medical History Medical History Obesity Surgical History Surgical History History of cholecystectomy 03/13/21 Previous section Family History Family History Mother Diabetes mellitus Social History Social History Smoking status: Never smoker Second hand tobacco smoke exposure: No Alcohol intake: never Substance use: never Living arrangements: with family Spiritual care concerns: No Exam Narrative: EXAMINATION OF ORGAN SYSTEMS/BODY AREAS: Constitutional: Vital signs per nursing GENERAL:[No acute distress, non-toxic appearing.] HEAD: Normal with no signs of head trauma. EYES: EOMI, conjunctiva normal ENT: Hearing grossly intact LUNGS: Nonlabored breathing. HEART: [Regular rate and rhythm], normal radial pulse ABD: [Soft], [nontender to palpation] EXT: Some slightly limited range of motion due to pain, no deformity, some tenderness to the right shoulder on palpation SKIN: [No rashes or lesions.] NEURO: [Alert and oriented x 3. No gross focal sensory or strength deficits.] PSYCH: Normal affect Course Vital Signs Vital signs: Vital Signs Temperature 97.8 F 01/01/25 16:08 Pulse Rate 82 01/01/25 16:08 Respiratory Rate 16 01/01/25 16:08 Blood Pressure 116/66 01/01/25 16:08 Pulse Oximetry 99 01/01/25 16:08 Oxygen Delivery Room Air 01/01/25 16:08 Temperature 97.8 F 01/01/25 16:08 Pulse Rate 74 01/01/25 18:11 Respiratory Rate 18 01/01/25 18:11 Blood Pressure 120/84 01/01/25 18:11 Pulse Oximetry 98 01/01/25 18:11 Oxygen Delivery Room Air 01/01/25 16:08 MDM - Extremity Injury (Upper) MDM Narrative Medical decision making narrative: Patient presenting here with right shoulder injury, she does have some pain with movement his tenderness on exam, she is neurovascularly intact, shoulder x-ray thankfully negative for acute fracture or dislocation. Pain medication ordered with follow-up to Orthopedics and return precautions. Patient agreeable to plan. Discharge Plan Discharge Clinical Impression: Injury of right shoulder Patient Disposition: Home Condition: Stable Instructions: Shoulder Sprain (ED) Additional Instructions: Please follow up with the orthopedic surgeon; try the medications as prescribed and you can return if worse. Patient Language: Guinean Prescriptions: New prednisone 20 mg tablet 40 mg PO DAILY 5 Days Qty: 10 0RF lidocaine 5 % adhesive patch,medicated 1 patch topical DAILY Qty: 15 0RF Rx Instructions: leave on most painful area for up to 12 hrs ibuprofen 600 mg tablet 600 mg PO TID PRN (Reason: fever or pain) Qty: 30 0RF methocarbamol 750 mg tablet 750 mg PO TID PRN (Reason: muscle spasm) Qty: 30 0RF prednisone 20 mg tablet 40 mg PO DAILY 5 Days Qty: 10 0RF methocarbamol 750 mg tablet 750 mg PO TID PRN (Reason: muscle spasm) Qty: 30 0RF lidocaine 5 % adhesive patch,medicated 1 patch topical DAILY Qty: 15 0RF Rx Instructions: leave on most painful area for up to 12 hrs ibuprofen 600 mg tablet 600 mg PO TID PRN (Reason: fever or pain) Qty: 30 0RF No Action ciprofloxacin HCl [Cipro] 500 mg tablet 500 mg PO Q12H Qty: 20 0RF ondansetron HCl 4 mg tablet 4 mg PO Q4H Qty: 10 0RF Rx Instructions: 1st dose 1-2 hr before radiation ondansetron 4 mg tablet,disintegrating 4 mg PO Q6H PRN (Reason: nausea and vomiting) Qty: 10 0RF oseltamivir [Tamiflu] 75 mg capsule 75 mg PO Q12H 5 Days Qty: 10 0RF methylprednisolone [Medrol (Lee)] 4 mg tablets,dose pack See Rx Instructions PO .COMPLEX Qty: 21 0RF Rx Instructions: orally per package directions amoxicillin-pot clavulanate 875-125 mg tablet 1 tablet PO Q12H 10 Days Qty: 20 0RF methylprednisolone [Medrol (Lee)] 4 mg tablets,dose pack See Rx Instructions .ROUTE .COMPLEX Qty: 21 0RF Rx Instructions: for 6 days hydrocodone-acetaminophen 5-325 mg tablet 1 tablet PO Q8H PRN (Reason: pain) Qty: 10 0RF lidocaine 5 % adhesive patch,medicated 2 patch topical DAILY Qty: 30 0RF Rx Instructions: leave on most painful area for up to 12 hrs orphenadrine citrate 100 mg tablet extended release 100 mg PO Q12H PRN (Reason: muscle spasm) Qty: 10 0RF Paxlovid 300 mg (150 mg x 2)-100 mg tablets,dose pack See Rx Instructions PO .COMPLEX Qty: 30 0RF Rx Instructions: take TWO 150 mg tablets of nirmatrelvir with ONE 100 mg tablet of ritonavir twice daily for 5 days oseltamivir [Tamiflu] 75 mg capsule 75 mg PO BID Qty: 10 0RF Follow-up/Referrals: Cary,Jimenez Echavarria MD [Primary Care Provider, Unknown] Zen Mariee MD [Physician, Orthopedics] - 2 Days
== END 2025-01-01 18:23 | disposition home or self-care (01) ==
PROVIDERS: Emergency Provider Emergency Medicine; PCP Family Medicine
DX: S49.91XA Unspecified injury of right shoulder and upper arm, initial encounter (principal); E66.9 Obesity, unspecified; Z68.34 Body mass index [BMI] 34.0-34.9, adult; Z90.49 Acquired absence of other specified parts of digestive tract; X58.XXXA Exposure to other specified factors, initial encounter
CPT/HCPCS: 73030; 99283; A9270